=== PATIENT | female | born 1945 | race Caucasian/White ===

== ENCOUNTER 2018-01-24 20:47 | Emergency (ER) | payer OTHER ==
--- OUTSIDE RECORDS SUMMARY | 2018-01-24 20:49 | XMS REPORT | Clinical Summary ---
:1945 Author Organization [facility] Address [address] [place] [address] Phone Care Team Providers Name Role Phone Unavailable Primary Care Provider Unavailable Allergies Active Allergy Reactions Severity Noted Date Comments Iodine And Iodide Containing Anaphylaxis High 06/24/2016 Products Meperidine Hives 06/24/2016 Erythromycin Other (See Comments) 06/24/2016 Abdominal pain Levofloxacin Itching 06/24/2016 Penicillins Itching 06/24/2016 Salicylates Rash Low 06/24/2016 Secobarbital Sodium Anxiety Low 06/24/2016 Insomnia Current Medications Prescription Sig. Disp. Refills Start Date End Date Status acetaminophen 500 mg Take 2 tablets by Active coapsuleIndications: mouth as needed for Arthritic Pain Pain. Active Problems Not on file Social History Tobacco Use Types Packs/Day Years Used Date Never Smoker Smokeless Tobacco: Never Used Alcohol Use Drinks/Week oz/Week Comments No Sex Assigned at Date Recorded Not on file Last Filed Vital Signs Not on file Plan of Treatment Not on file Results Not on fileafter 01/23/2017
[2018-01-24 22:12] LABS: Absolute Lymphocytes (CBC) 1.4 K/uL (0.7-4.9); Absolute Monocytes 0.4 K/uL (0.1-1.3); Eosinophils % 1.8 % (0-4.4); Lymphocytes % 27.9 % (15.3-44.8); MCH 30.8 pg (27.0-35.0); MCV 94.5 fL (80-100); MPV 7.9 fL (7.6-11.3); Monocytes % 7.3 % (3.3-12.3); RBC Red Blood Cell Count 4.13 M/uL (3.86-4.86)
[2018-01-24 22:29] LABS: Albumin 4.2 g/dL (3.4-5.0); Bilirubin Direct 0.2 mg/dL (0-0.2); Bilirubin Total 0.6 mg/dL (0.2-1.0); Potassium 3.3 mmol/L (3.5-5.1); Protein, Total 7.3 g/dL (6.4-8.2)
[2018-01-24] MEDS ORDERED: METHYLPREDNISOLONE 125 MG INJ ONE (23:35)
[2018-01-24] MEDS ORDERED: DIPHENHYDRAMINE 50 MG/ML VIAL ONE (23:35)
[2018-01-24 23:44] LABS: Urine Blood NEGATIVE (NEG); Urine Glucose NEGATIVE (NEG); Urine Protein 1+ (NEG); Urine Specific Gravity >1.030 (1.005-1.030); Urine pH 5.5 (5.0-7.0)
--- NOTE | 2018-01-25 01:43 | EDPHYS ---
Physician Documentation [facility] Name: Jennifer Woody Age: 72 yrs Sex: Female : 1945 Arrival Date: 01/24/2018 Time: 20:50 Bed 13 Private MD: Richard Stinson T ED Physician Hilario Muir HPI: 01/24 21:57 This 72 yrs old Female presents to ER via Ambulatory with complaints of jr8 Abdominal Pain. 21:57 The patient presents with abdominal pain right lower quadrant. Onset: The jr8 symptoms/episode began/occurred acutely, today. The symptoms do not radiate. Associated signs and symptoms: none. The symptoms are described as constant, sharp. Modifying factors: The symptoms are alleviated by nothing, the symptoms are aggravated by nothing. Severity of pain: At its worst the pain was moderate in the emergency department the pain is unchanged. The patient has not experienced similar symptoms in the past. The patient has not recently seen a physician. Historical: - Allergies: 20:55 Aspirin; aj 20:55 Demerol; aj 20:55 Erythromycin; aj 20:55 Iodine; aj 20:55 Keflex; aj 20:55 Levaquin; aj 20:55 PENICILLINS; aj - Home Meds: 20:55 tylenol [Active]; aj - PMHx: 20:55 HYPOGLYCEMIA; aj - PSHx: 20:55 Knee surgery; HAND SURG; ; eye surgery; aj - Immunization history:: Adult Immunizations up to date. - Social history:: Smoking status: Patient/guardian denies using tobacco. - Ebola Screening: : Patient negative for fever greater than or equal to 101.5 degrees Fahrenheit, and additional compatible Ebola Virus Disease symptoms Patient denies exposure to infectious person Patient denies travel to an Ebola-affected area in the 21 days before illness onset No symptoms or risks identified at this time. ROS: 21:57 Eyes: Negative for injury, pain, redness, and discharge, ENT: Negative for injury, jr8 pain, and discharge, Neck: Negative for injury, pain, and swelling, Cardiovascular: Negative for chest pain, palpitations, and edema, Respiratory: Negative for shortness of breath, cough, wheezing, and pleuritic chest pain, Back: Negative for injury and pain, MS/Extremity: Negative for injury and deformity, Skin: Negative for injury, rash, and discoloration, Neuro: Negative for headache, weakness, numbness, tingling, and seizure. 21:57 Abdomen/GI: Positive for abdominal pain, Negative for nausea, vomiting, and diarrhea, abdominal distension, anorexia, dysphagia, hematemesis, black/tarry stool, rectal pain, rectal bleeding, bowel incontinence, flatulence. Exam: 21:57 Eyes: Pupils equal round and reactive to light, extra-ocular motions intact. Lids and jr8 lashes normal. Conjunctiva and sclera are non-icteric and not injected. Cornea within normal limits. Periorbital areas with no swelling, redness, or edema. ENT: Nares patent. No nasal discharge, no septal abnormalities noted. Tympanic membranes are normal and external auditory canals are clear. Oropharynx with no redness, swelling, or masses, exudates, or evidence of obstruction, uvula midline. Mucous membranes moist. Neck: Trachea midline, no thyromegaly or masses palpated, and no cervical lymphadenopathy. Supple, full range of motion without nuchal rigidity, or vertebral point tenderness. No Meningismus. Cardiovascular: Regular rate and rhythm with a normal S1 and S2. No gallops, murmurs, or rubs. Normal PMI, no JVD. No pulse deficits. Respiratory: Lungs have equal breath sounds bilaterally, clear to auscultation and percussion. No rales, rhonchi or wheezes noted. No increased work of breathing, no retractions or nasal flaring. Back: No spinal tenderness. No costovertebral tenderness. Full range of motion. Skin: Warm, dry with normal turgor. Normal color with no rashes, no lesions, and no evidence of cellulitis. MS/ Extremity: Pulses equal, no cyanosis. Neurovascular intact. Full, normal range of motion. Neuro: Awake and alert, GCS 15, oriented to person, place, time, and situation. Cranial nerves II-XII grossly intact. Motor strength 5/5 in all extremities. Sensory grossly intact. Cerebellar exam normal. Normal gait. 21:57 Abdomen/GI: Inspection: abdomen appears normal, Bowel sounds: active, all quadrants, Palpation: soft, in all quadrants, mild abdominal tenderness, in the right lower quadrant, mass, is not appreciated, rebound tenderness, is not appreciated, voluntary guarding, is not appreciated, involuntary guarding, is not appreciated, no appreciated organomegaly, Indicators: McBurney's point is not tender, Martin's sign is negative, Rovsing's sign is negative, Liver: no appreciated palpable abnormalities, tenderness, is not appreciated. Vital Signs: 20:55 BP 127 / 89; Pulse 106; Resp 19; Temp 99.2; Pulse Ox 97% on R/A; Weight 55.79 kg; aj Height 5 ft. 6 in. (167.64 cm); Pain 6/10; 21:50 BP 99 / 60; Pulse 67; Resp 18; Pulse Ox 99% on R/A; ea 22:15 BP 102 / 61; Pulse 66; Resp 18; Pulse Ox 98% on R/A; ea 01/25 00:15 BP 100 / 70; Pulse 70; Resp 18; Pulse Ox 99% ; ea 01:30 BP 100 / 68; Pulse 67; Resp 18; Pulse Ox 98% on R/A; ea 01:30 BP 100 / 67; Pulse 70; Resp 18; Temp 97.8(O); Pulse Ox 98% on R/A; Pain 2/10; ea 01/24 20:55 Body Mass Index 19.85 (55.79 kg, 167.64 cm) aj MDM: 01/24 21:10 Patient medically screened. 8 01/25 01:41 Data reviewed: vital signs, nurses notes, lab test result(s), radiologic studies, CT jr8 scan, and as a result, I will discharge patient. Data interpreted: Pulse oximetry: on room air is 99 %. Interpretation: normal. Counseling: I had a detailed discussion with the patient and/or guardian regarding: the historical points, exam findings, and any diagnostic results supporting the discharge/admit diagnosis, lab results, radiology results, the need for outpatient follow up, an OB/Gyne specialist, to return to the emergency department if symptoms worsen or persist or if there are any questions or concerns that arise at home. 01/24 21:11 Order name: Basic Metabolic Panel; Complete Time: 22:39 8 01/24 21:11 Order name: CBC with Diff; Complete Time: 22:20 jr8 01/24 21:11 Order name: Creatinine for Radiology; Complete Time: 22:39 8 01/24 21:11 Order name: Hepatic Function; Complete Time: 22:39 8 01/24 21:11 Order name: Lipase; Complete Time: 22:39 [facility] 01/24 22:18 Order name: Urine Dipstick--Ancillary (enter results); Complete Time: 23:45 rg2 01/24 21:11 Order name: IV Saline Lock; Complete Time: 22:07 [facility] 01/24 21:11 Order name: Labs collected and sent; Complete Time: 22:07 [facility] 01/24 21:11 Order name: Urine Dipstick-Ancillary (obtain specimen); Complete Time: 22:14 [facility] 01/24 21:38 Order name: CT Abd/Pelvis - W/Contrast 8 Administered Medications: 01/24 23:41 Drug: Benadryl 12.5 mg Route: IVP; Site: right antecubital; 01/25 00:15 Follow up: Response: No adverse reaction 01/24 23:41 Drug: SOLU-Medrol 125 mg Route: IVP; Site: right antecubital; 01/25 00:15 Follow up: Response: No adverse reaction Disposition: 19:09 Co-signature as Attending Physician, Hilario Muir MD. Disposition: 01/25/18 01:42 Discharged to Home. Impression: Pelvic mass, Abdominal and pelvic pain. - Condition is Stable. - Discharge Instructions: Abdominal Pain, Adult. - Prescriptions for Tylenol- Codeine #3 300-30 mg Oral Tablet - take 2 tablet by ORAL route every 6 hours As needed; 30 tablet. - Medication Reconciliation Form, Thank You Letter, Antibiotic Education, Prescription Opioid Use form. - Follow up: Private Physician; When: 2 - 3 days; Reason: Recheck today's complaints, Continuance of care, Re-evaluation by your physician. - Problem is new. - Symptoms have improved. Signatures: Dispatcher [employer] Renetta Christianson RN RN aj Roszak, Josh, PA PA jr8 Aziza Mukherjee RN RN ea Starr, Gregory, MD MD gs Corrections: (The following items were deleted from the chart) 02:10 01:42 01/25/2018 01:42 Discharged to Home. Impression: Pelvic mass; Abdominal and ea pelvic pain. Condition is Stable. Forms are Medication Reconciliation Form, Thank You Letter, Antibiotic Education, Prescription Opioid Use. Follow up: Private Physician; When: 2 - 3 days; Reason: Recheck today's complaints, Continuance of care, Re-evaluation by your physician. Problem is new. Symptoms have improved. jr8
--- NOTE | 2018-01-25 01:43 | ER ---
Nurse's Notes [facility] Name: Jennifer Woody Age: 72 yrs Sex: Female : 1945 Arrival Date: 01/24/2018 Time: 20:50 Bed 13 Private MD: Richard Stinson T Diagnosis: Pelvic mass;Abdominal and pelvic pain Presentation: 01/24 20:53 Presenting complaint: Patient states: RLQ pain that's started this AM. Denies stool aj changes. Transition of care: patient was not received from another setting of care. Onset of symptoms was January 24, 2018. Risk Assessment: Do you want to hurt yourself or someone else? Patient reports no desire to harm self or others. Initial Sepsis Screen: Does the patient meet any 2 criteria? No. Patient's initial sepsis screen is negative. Does the patient have a suspected source of infection? No. Patient's initial sepsis screen is negative. Care prior to arrival: None. 20:53 Method Of Arrival: Ambulatory aj 20:53 Acuity: BETZY 3 aj Triage Assessment: 20:55 General: Appears in no apparent distress. comfortable, Behavior is calm, cooperative, aj appropriate for age. Pain: Complains of pain in right lower quadrant. Neuro: Level of Consciousness is awake, alert, obeys commands, Oriented to person, place, time, situation, Appropriate for age. Respiratory: Airway is patent Respiratory effort is even, unlabored, Respiratory pattern is regular, symmetrical. GI: Abdomen is flat, Reports lower abdominal pain. Derm: Skin is intact, is healthy with good turgor, Skin is pink, warm \\T\\ dry. normal. Historical: - Allergies: 20:55 Aspirin; aj 20:55 Demerol; aj 20:55 Erythromycin; aj 20:55 Iodine; aj 20:55 Keflex; aj 20:55 Levaquin; aj 20:55 PENICILLINS; aj - Home Meds: 20:55 tylenol [Active]; aj - PMHx: 20:55 HYPOGLYCEMIA; aj - PSHx: 20:55 Knee surgery; HAND SURG; ; eye surgery; aj - Immunization history:: Adult Immunizations up to date. - Social history:: Smoking status: Patient/guardian denies using tobacco. - Ebola Screening: : Patient negative for fever greater than or equal to 101.5 degrees Fahrenheit, and additional compatible Ebola Virus Disease symptoms Patient denies exposure to infectious person Patient denies travel to an Ebola-affected area in the 21 days before illness onset No symptoms or risks identified at this time. Screenin:49 Abuse screen: Denies threats or abuse. Nutritional screening: No deficits noted. ea Tuberculosis screening: No symptoms or risk factors identified. Fall Risk None identified. Assessment: 21:50 General: Appears uncomfortable, Behavior is calm, cooperative. Pain: Complains of pain ea in right lower quadrant Pain does not radiate. Pain currently is 8 out of 10 on a pain scale. Quality of pain is described as aching. Neuro: Level of Consciousness is awake, alert, obeys commands, Oriented to person, place, time, situation. Cardiovascular: Heart tones S1 S2 present Patient's skin is warm and dry. Respiratory: Airway is patent Respiratory effort is even, unlabored, Respiratory pattern is regular, symmetrical. Respiratory: Breath sounds are clear bilaterally. GI: Bowel sounds present X 4 quads. Abdomen is tender to palpation in right lower quadrant. : No signs and/or symptoms were reported regarding the genitourinary system. Derm: Skin is pink, warm \\T\\ dry. 22:10 Reassessment: Patient and/or family updated on plan of care and expected duration. Pain ea level reassessed. Patient is alert, oriented x 3, equal unlabored respirations, skin warm/dry/pink. Pt reports refused to drink contrast states " my stomach is not able to tolerate it, I start cramping and get really bad diarrhea" Provider notified. 22:15 Reassessment: Patient and/or family updated on plan of care and expected duration. Pain ea level reassessed. Patient is alert, oriented x 3, equal unlabored respirations, skin warm/dry/pink. 23:50 Reassessment: Patient and/or family updated on plan of care and expected duration. Pain ea level reassessed. Patient is alert, oriented x 3, equal unlabored respirations, skin warm/dry/pink. 01/25 00:50 Reassessment: Patient and/or family updated on plan of care and expected duration. Pain ea level reassessed. Patient is alert, oriented x 3, equal unlabored respirations, skin warm/dry/pink. 01:12 Reassessment: Patient and/or family updated on plan of care and expected duration. Pain ea level reassessed. Patient is alert, oriented x 3, equal unlabored respirations, skin warm/dry/pink. 02:02 Reassessment: Patient and/or family updated on plan of care and expected duration. Pain ea level reassessed. Patient is alert, oriented x 3, equal unlabored respirations, skin warm/dry/pink. discharge instruction given to patient, verbalized the understanding of instruction. Vital Signs: 01/24 20:55 BP 127 / 89; Pulse 106; Resp 19; Temp 99.2; Pulse Ox 97% on R/A; Weight 55.79 kg; aj Height 5 ft. 6 in. (167.64 cm); Pain 6/10; 21:50 BP 99 / 60; Pulse 67; Resp 18; Pulse Ox 99% on R/A; ea 22:15 BP 102 / 61; Pulse 66; Resp 18; Pulse Ox 98% on R/A; ea 01/25 00:15 BP 100 / 70; Pulse 70; Resp 18; Pulse Ox 99% ; ea 01:30 BP 100 / 68; Pulse 67; Resp 18; Pulse Ox 98% on R/A; ea 01:30 BP 100 / 67; Pulse 70; Resp 18; Temp 97.8(O); Pulse Ox 98% on R/A; Pain 2/10; ea 01/24 20:55 Body Mass Index 19.85 (55.79 kg, 167.64 cm) aj ED Course: 01/24 20:50 Patient arrived in ED. ds1 20:50 Richard Stinson MD is Private Physician. ds1 20:54 Triage completed. aj 20:55 Arm band placed on right wrist. Patient placed in an exam room. aj 21:02 Aziza Mukherjee, LAZARO is Primary Nurse. ea 21:03 Matti Nolasco PA is PHCP. jr8 21:03 Hilario Muir MD is Attending Physician. jr8 21:40 Patient has correct armband on for positive identification. Placed in gown. Bed in low ea position. Call light in reach. Side rails up X 1. 22:00 Inserted saline lock: 22 gauge in right antecubital area, using aseptic technique. ea Blood collected. 23:[address] via stretcher. kw1 23:43 Radiology exam delayed due to Patient needed to be pre-treated for iodine allergy prior kw1 to CT exam. 23:50 CT completed. Patient tolerated procedure well. Patient moved back from CT. kw1 23:52 CT Abd/Pelvis - W/Contrast In Process Unspecified. EDMS 01/25 02:03 No provider procedures requiring assistance completed. IV discontinued, intact, ea bleeding controlled, No redness/swelling at site. Pressure dressing applied. Administered Medications: 01/24 23:41 Drug: Benadryl 12.5 mg Route: IVP; Site: right antecubital; ea 01/25 00:15 Follow up: Response: No adverse reaction ea 01/24 23:41 Drug: SOLU-Medrol 125 mg Route: IVP; Site: right antecubital; ea 01/25 00:15 Follow up: Response: No adverse reaction ea Outcome: 01:42 Discharge ordered by MD. reyes 02:03 Discharged to home ambulatory, with family. ea 02:03 Condition: improved 02:03 Discharge instructions given to patient, Instructed on discharge instructions, follow up and referral plans. medication usage, Demonstrated understanding of instructions, follow-up care, medications, Prescriptions given X 1. 02:10 Patient left the ED. ea Signatures: Dispatcher [employer] EDRenetta Corcoran, RN Navya Ford ds1 Matti Nolasco PA PA jr8 Antunez, Elena, RN RN ea Wilhelm, Kimberly kw1
--- NOTE | 2018-01-25 08:41 | RAD REPORT ---
EXAM DESCRIPTION: CTAbdomen Pelvis W Contrast - 01/25/2018 4:43 am CLINICAL HISTORY: Abdominal pain. ABD PAIN COMPARISON: Abdomen Pelvis W Contrast dated 04/20/2016 TECHNIQUE: Biphasic CT imaging of the abdomen and pelvis was performed with 100 ml non-ionic IV cont rast. All CT scans are performed using dose optimization technique as appropriate and may include automated exposure control or mA/KV adjustment according to patient size. FINDINGS: The lung bases are clear. The liver contains several low-density lesions compatible with cysts, without significant change. The spleen, pancreas, adrenal glands are normal. Bilateral renal cysts are present, without significant change. Complicated cyst versus solid lesion again noted lateral inferior right kidney cortex measuri ng 12 x 10 mm, unchanged. Several punctate left renal calculi seen without significant change. No bowel obstruction, free air, free fluid or abscess. Right pelvic mass measuring 3.3 x 3.0 cm appea rs unchanged. Significant retained stool in the colon. The appendix is not identified as a discrete s tructure, however, no secondary findings of appendicitis are identified. No evidence of significant lymphadenopathy. Grade 1 anterolisthesis of L4 on 5 is seen. Prominent posterior disc bulge with calcification at L5-S 1. IMPRESSION: No significant change is seen since 04/20/2016 study. Prominent fecal retention. A preliminary written report was provided at the time of the study, and the report was reviewed prio r to final dictation.
== END 2018-01-25 02:10 | disposition home or self-care (01) ==
LOC: ER 20:47
DX: R19.00 Intra-abdominal and pelvic swelling, mass and lump, unspecified site (principal); R10.31 Right lower quadrant pain; Z88.6 Allergy status to analgesic agent; Z88.1 Allergy status to other antibiotic agents; Z88.3 Allergy status to other anti-infective agents; Z88.0 Allergy status to penicillin
CPT/HCPCS: 36415; 74177; 80048; 80076; 81003; 83690; 85025; 96374; 96375; 99284; J2930; Q9967

== ENCOUNTER 2021-10-30 15:16 | Emergency (ER) | payer OTHER ==
--- OUTSIDE RECORDS SUMMARY | 2021-10-30 15:22 | XMS REPORT | Continuity of Care Document ---
:1945 Author Organization [facility] t Address [address] [place] [address] Care Team Providers Name Role Phone [facility] Primary Care Physician Unavailable GEN ZAMUDIO Attending Clinician Unavailable NATALIE Attending Clinician Unavailable Melissa ZAMUDIO Attending Clinician Unavailable Clint LOAIZA Attending Clinician Unavailable Clint Loaiza MD Attending Clinician Melissa Zamudio MD Attending Clinician NATALIE Admitting Clinician Unavailable Payers Payer Name Policy Type Policy Number Effective Date Expiration Date S karyn MEDICARE A B [id number] 2011 00:00:00 [employer]ET[employer] INDEMNITY [id number] 2014 NON CONTR 00:00:00 MEDICARE PART A [id number] \\T\\ [id number] - MEDICARE INDEMNITY/TRADITIO [id number] 2015 NAL CHOICE - AETNA 00:00:00 Problems Condition Condition Condition Status Onset Resolution Last Treating Co mments Source Name Details Category Date Date Treatment Clinician Date 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[facility] of of 305 College uncertain uncertain 00:00: of behavior behavior 00 Medici n of skin of skin e Multiple Multiple Disease Active [facility] nevi nevi 3-05 College 00:00: of 00 Medicin e Keratosis Keratosis Disease Active [facility] seborrheic seborrheic -05 Co llege a a 00:00: of 00 Medicin e Lentigines Lentigines Disease Active [facility] 3-05 [facility] 00:00: of 00 Medicin e Milium Milium Disease Active [facility] 3-05 College 00:00: of 00 Medicin e EIC EIC Disease Active [facility] (epidermal (epidermal 05 Co llege inclusion inclusion 00:00: of cyst) cyst) 00 Medicin e 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 305 Colleg e of skin of of skin of 00:00: of right arm right arm 00 Medi philippe e Abdominal Abdominal Disease Active 2015-07 [facility] gas pain gas pain 2-05 Colleg e 00:00: of 00 Medicin e Trigger Trigger Disease Active [facility] index index 5-16 College finger finger 00:00: of 00 Medicin e Bilateral Bilateral Disease Active [facility] hand pain hand pain 5-12 [facility]ime [facility]ge 00:00: of 00 Medicin e Allergies, Adverse Reactions, Alerts Allergy Allergy Status Severity Reaction(s) Onset Inactive Treating Comm ents Source Name Type Date Date Clinician Sulfamet Propensi Active Rash 2019-07 [facility] hazine ty to 0-20 College adverse 00:00: of reaction 00 Medicin s to e drug SULFAMET Allergy Active Low Itching 2019-[address] [facility]20 [facility] 00 Big Pool Pseudoep Propensi Active [facility] hedrine ty to 5-01 College adverse 00:00: of reaction 00 Medicin s to e drug PSEUDOEP Allergy Active Other [facility] 5-01 [facility] IODINE Allergy Active High Anaphylaxis 2015-[address] [facility] AND 2-20 [facility] - IODIDE 00:00: Medical CONTAINI 00 Center NG PRODUCTS MEPERIDI Allergy Active Hives 2015-[address] [facility] NE 2-20 [facility] ERYTHROM Allergy Active Other 2015-[address] [facility] YCIN 2-20 [facility] LEVOFLOX Allergy Active Itching 2015-[address] [facility] ACIN 2-20 [facility] Center PENICILL Allergy Active Itching 2015-[address] [facility] INS 2-20 [facility] SALICYLA Allergy Active Low Rash 2015-[address] [facility] PHYLLIS 2-20 [facility] Center SECOBARB Allergy Active Low Anxiety 2015-[address] [facility] ITAL 2-20 [facility] SODIUM 00:[facility] Medical 00 Center Maltose Propensi Active 2015-07 [facility] ty to 08-10 [place] adverse 00:00: of reaction 00 Medicin s to e drug Penicill Propensi Active 2015-07 [facility] ins ty to 08-10 [place] adverse 00:00: of reaction 00 Medicin s to e drug Seconal Propensi Active 2015-07 [facility] ty to 08-10 [place] adverse 00:00: of reaction 00 Medicin s to e drug Cephalex Propensi Active 2015-07 [facility] in ty to 08-10 [place] adverse 00:00: of reaction 00 Medicin s to e drug Codeine Propensi Active 2015-07 [facility] ty to 08-10 [place] adverse 00:00: of reaction 00 Medicin s to e drug Demerol Propensi Active 2015-07 [facility] ty to 08-10 [place] adverse 00:00: of reaction 00 Medicin s to e drug MALTOSE Allergy Active 2015-[address] [facility] 08-10 [facility] Erythrom Propensi Active 2015-07 [facility] ycin ty to 08-10 [place] adverse 00:00: of reaction 00 Medicin s to e drug CEPHALEX Allergy Active Low Rash 2015-[address] [facility] IN 08-02 [facility] CODEINE Allergy Active N\\T\\V 2015-[address] [facility] 08-02 [facility] Iodine Propensi Active 2015-07 [facility] ty to 08-02 [place] adverse 00:00: of reaction 00 Medicin s to e drug Aspirin Propensi Active [facility] ty to 11-14 [place] adverse 00:00: of reaction Medicin s to e drug Levaquin Propensi Active [facility] ty to 11-14 [place] adverse 00:00: of reaction 00 Medicin s to e drug Social History Social Habit Start Date Stop Date Quantity Comments Source Exposure to Not sure [facility] kj of SARS-CoV-2 (event) Medici ne Tobacco use and 2020-06-14 2020-06-14 Never used [facility] llege of exposure 00:00:00 00:00:00 Medicine Sex [birth year] [facility] llege of 00:00:00 00:00:00 Medicine Smoking Status Start Date Stop Date Source Never smoker [facility] o f Medicine Medications Ordered Filled Start Stop Current Ordering Indication Dosage Frequency Signature Comments Components Source Medication Medication Date Date Medication? Clinician (SIG) Name Name Acetaminoph 2019-07 Yes Take by Jake barrientos en (TYLENOL 0-20 mouth. Colleg e 8 HOUR OR) 14:59: of 50 Medicin e Acetaminoph 2019-07 Yes Take by Jake ylor en (TYLENOL 0-20 mouth. Colleg e 8 HOUR OR) 14:59: of 50 Medicin e polyethylen 2019-07 Yes 17g Take 17 g [facility] glycol 0-20 by mouth College (MIRALAX) 00:00: daily. of 17 GM/SCOOP 00 Please Medici n powder start e taking half dose daily for 2 weeks and slowly increase to 17g daily if no improvemen t with bowel movement polyethylen 2019-07 Yes 17g Take 17 g [facility] glycol 0-20 by mouth College (MIRALAX) 00:00: daily. of 17 GM/SCOOP 00 Please Medici n powder start e taking half dose daily for 2 weeks and slowly increase to 17g daily if no improvemen t with bowel movement polyethylen 2015-07 2020- No 17g Take 17 g Nolberto e glycol 2-05 10-20 by mouth Colleg e (MIRALAX) 00:00: 00:00 daily. of powder 00 :00 Medicin e Vital Signs Vital Name Observation Time Observation Value Comments Source WEIGHT 2021-10-22 12:32:00 52.3 kg HEIGHT 2021-10-22 12:32:00 165.1 cm HEIGHT 2021-10-21 11:46:00 167.6 cm WEIGHT 2021-10-21 11:46:00 53.071 kg WEIGHT 2021-10-22 12:32:00 52.3 kg HEIGHT 2021-10-22 12:32:00 165.1 cm HEIGHT 2021-10-21 11:46:00 167.6 cm WEIGHT 2021-10-21 11:46:00 53.071 kg Heart rate 2020-04-24 14:56:00 98 /min [facility] Respiratory rate 2020-04-24 14:56:00 16 /min [facility] Body height 2020-04-24 14:56:00 167.6 cm [facility] Body weight 2020-04-24 14:56:00 52.617 kg [facility] BMI 2020-04-24 14:56:00 18.72 kg/m2 [facility] Procedures This patient has no known procedures. Plan of Care Planned Activity Planned Date Details Comments Source Future Scheduled CBC W/O DIFF W PLT Ordered: [facility] r College Test [code = 6690-2] 04/24/2020 of Medicine Future Scheduled COMPREHENSIVE Ordered: [facility] Col lege Test METABOLIC PANEL [code 04/24/2020 of Med icine = 89107-1] Future Scheduled TSH [code = 75189-3] Ordered: [employer] [employer] Test 04/24/2020 of Medicine Future Scheduled TETANUS SHOT (ADULT) [facility] [employer] Test [code = TETANUS SHOT of Medi cine (ADULT)] Future Scheduled HEPATITIS C SCREENING [employer] Test [code = HEPATITIS C of Medic ine SCREENING] Future Scheduled ZOSTER VACCINE (1 of [employer] [employer] Test 2) [code = ZOSTER of Medicin e VACCINE (1 of 2)] Future Scheduled FALL SCREEN [code = [employer] Test FALL SCREEN] of Medicine Future Scheduled PNEUMOVAX >=65 [facility] Co llege Test (PPSV23) [code = of Medicine PNEUMOVAX >=65 (PPSV23)] Future Scheduled MEDICARE AWV (Initial) [employer] Test [code = MEDICARE AWV of Medi cine (Initial)] Future Scheduled MAMMOGRAM ANNUAL [code [employer] Test = MAMMOGRAM ANNUAL] of Medic ine Future Scheduled FLU VACCINE > 6 MONTHS [employer] Test [code = FLU VACCINE > of Med icine 6 MONTHS] Future Scheduled COLON CANCER [facility]ime [facility] Test SCREENING: COLONOSCOPY of Me dicine [code = COLON CANCER SCREENING: COLONOSCOPY] Future Scheduled TETANUS SHOT (ADULT) [facility] [employer] Test [code = TETANUS SHOT of Medi cine (ADULT)] Future Scheduled HEPATITIS C SCREENING [employer] Test [code = HEPATITIS C of Medic ine SCREENING] Future Scheduled ZOSTER VACCINE (1 of [facility] [employer] Test 2) [code = ZOSTER of Medicin e VACCINE (1 of 2)] Future Scheduled FALL SCREEN [code = [employer] Test FALL SCREEN] of Medicine Future Scheduled PNEUMOVAX >=65 [facility] Co llege Test (PPSV23) [code = of Medicine PNEUMOVAX >=65 (PPSV23)] Future Scheduled MEDICARE AWV (Initial) [employer] Test [code = MEDICARE AWV of Medi cine (Initial)] Future Scheduled MAMMOGRAM ANNUAL [code [employer] Test = MAMMOGRAM ANNUAL] of Medic ine Future Scheduled FLU VACCINE > 6 MONTHS [employer] Test [code = FLU VACCINE > of Med icine 6 MONTHS] Future Scheduled COLON CANCER [facility] Test SCREENING: COLONOSCOPY of Me madrid [code = COLON CANCER SCREENING: COLONOSCOPY] Encounters Start End Encounter Admission Attending Care Care Encounter Source Date/Time Date/Time Type Type Clinicians Facility Department ID 2021-11-04 2021-11-04 Outpatient [facility]O [facility] [id number] SLE 00:00:00 00:00:00 2021-10-22 2021-10-24 Outpatient VASU YOON [facility] Surgery [id number] SLE 11:51:00 15:25:00 GEORGI 2021-10-21 2021-10-21 Outpatient VASU [facility] [id number] SLE 12:06:16 23:59:00 2021-08-06 2021-08-06 Outpatient [facility] [id number] SLE 00:00:00 00:00:00 2021-05-14 2021-05-14 Outpatient LAMBERTO ZAMUDIO [facility] [id number] [facility] 10:25:49 16:14:12 Collepatricia e of Medicin e 2021-02-06 2021-02-06 Outpatient QUAN LOAIZA [facility] [id number] [facility] 10:40:55 11:42:41 AEGLE Murrell e of Medicin e 2020-06-14 2020-06-14 Office QUAN Loaiza [id number] [facility] 14:33:33 15:54:55 Visit [facility] [id number] College Y [id number] of [id number] Medi philippe 300 e 2020-04-24 2020-04-24 Office Labmerto Zamudio [id number] [facility] 09:29:50 09:49:50 Visit K AMBULATOR [id number] College Y [id number] [facility] philippe 325 e Results Test Description Test Time Test Comments Results Result Sour e Comments TISSUE EXAM 2021-10-30 Surgical Pathology Report 14:06:09 Case: [id number] Authorizing Provider: Georgi Yoon MD Collected: 10/22/2021 03:46 PM Ordering Location: [facility] Received: 10/22/2021 03:49 PM SERVICES Pathologist: Flavia Smith MD Specimens: A) - Soft Tissue, Other, left adnexa B) - Uterus w/Cervix & Right Ovary C) - Omentum D) - Lymph Node, Pelvic, Left, Left pelvic lymph node E) - Lymph Node, Pelvic, Right, Right pelvic lymph node F) - Mesenteric, Mesenteric nodule A. OVARY, LEFT, OOPHORECTOMY: - ENDOMETRIOID CARCINOMA, FIGO GRADE 1, WITH SQUAMOUS DIFFERENTIATION (SEE COMMENT)B. 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 OMENTUM, OMENTECTOMY: - FIBROADIPOSE TISSUE, NEGATIVE FOR CARCINOMA D. LYMPH NODES, LEFT PELVIC, DISSECTION: - TWO LYMPH NODES, NEGATIVE FOR CARCINOMA (0/2)E. LYMPH NODES, RIGHT PELVIC, DISSECTION: - TWO LYMPH NODES, NEGATIVE FOR CARCINOMA (0/2)F. MESENTERIC NODULE, EXCISION: - METASTATIC WELL-DIFFERENTIATED NEUROENDOCRINE TUMOR, G1, (SEE COMMENT) - TUMOR SIZE: 1.3 CM IN GREATEST DIMENSION - ONE ADJACENT LYMPH NODE, NEGATIVE FOR CARCINOMA (0/1) Signing Pathologist Direct Phone Line: [phone] y signed by Flavia Smtih MD on 10/30/2021 at 2:06 PMPreliminary result electronically signed by Flavia Smith MD on 10/29/2021 at 3:31 PMA. The ovarian surface cannot be assessed due to the specimen disruption. Immunohistochemical stains for mismatch repair genes is as follows: MLH1 - Intact nuclear expressionMSH2 - Intact nuclear expressionMSH6 - Intact nuclear expressionPMS2 - Intact nuclear expressionBackground nonneoplastic tissue/internal control with intact nuclear expression IHC InterpretationNo loss of nuclear expression of MMR proteins: low probability of microsatellite instability-high (MSI-H).There are exceptions to the above IHC interpretations. These results should not be considered in isolation, and clinical correlation with genetic counseling is recommended to assess the need for germline testing.F. Microscopically, section from the mesenteric nodule shows a well-differentiated neuroendocrine tumor involving soft tissue. An adjacent lymph node is identified. The neoplastic cells are relatively uniform in size and form nests, trabecular, and insular patterns. The neoplastic cells have round nuclei, eosinophilic cytoplasm, and eesd-tfw-ehfkpv chromatin, characteristic of a neuroendocrine tumor. Mitotic figure is rare in the tumor (< 1/10 high-power field). No tumor necrosis is seen.The immunohistochemical stains show that the neoplastic cells are diffusely positive AE1/AE3 cytokeratin, synaptophysin, chromogranin, and CDX-2. Ki-67 immunostain shows a low proliferative index (< 3%). The overall morphology and immunoprofile is consistent with a grade 1 well-differentiated neuroendocrine tumor. The CDX-2 staining suggests a primary arising from the mid-gut epithelium. Clinical correlation is necessary to determine the primary site. OVARY or FALLOPIAN TUBE or PRIMARY PERITONEUMOVARY OR FALLOPIAN TUBE OR PRIMARY PERITONEUM - All [id number] Edition - Protocol posted: 1SPECIMEN Procedure: Total hysterectomy and bilateral salpingo-oophorectomy Procedure: Omentectomy Procedure: Mesentric nodule excision Hysterectomy Type: Laparoscopic Specimen Integrity: Left Ovary Integrity: Per OP note, the mass was morcellated within the bag without spillage. Uterus Integrity: Intact TUMOR Tumor Site: Left ovary Tumor Size: Greatest Dimension (Centimeters): 15.5 cm Histologic Type: Endometrioid carcinoma Histologic Grade: FIGO grade 1 Ovarian Surface Involvement: Cannot be determined: due to the specimen disruption Fallopian Tube Surface Involvement: Not identified Other Tissue / Organ Involvement: Not identified Peritoneal / Ascitic Fluid Involvement: Atypical: See cytology report: [id number] REGIONAL LYMPH NODES Regional Lymph Node Status: : All regional lymph nodes negative for tumor cells Number of Lymph Nodes Examined: 5 Cris Site(s) Examined: Right pelvic Cris Site(s) Examined: Left pelvic Cris Site(s) Examined: Mesenteric DISTANT METASTASISPATHOLOGIC STAGE CLASSIFICATION (pTNM, AJCC 8th Edition) Reporting of pT, pN, and (when applicable) pM categories is based on information available to the pathologist at the time the report is issued. As per the AJCC (Chapter 1, 8th Ed.) it is the managing physician's responsibility to establish the final pathologic stage based upon all pertinent information, including but potentially not limited to this pathology report. pT Category: pT1 pN Category: pN0 A. 39035; 89814; 44664; 60678 x7B. 03910R. 38702M. 90987N. 00386O. 41960; 40414; 49748; 87911 x3A. Soft Tissue, Other.A. Received fresh for intraoperative consultation labeled the patient's name, accession number and "soft tissue, other" is a 71g, 15.5 x 8 x 3.5 cm duron-pink to yellow aggregate of tissue with the largest fragment measuring 6 x 3.5 x 3 cm. The tissue is fleshy and soft with focal areas of hemorrhage. There appears to be a duron-white translucent cyst lining overlying most of the tissue. No excrescences are identified. A section is submitted for frozen analysis and telephone claims representative sections are submitted in cassettes A2-A15.Section code:A2-A5: Carpet Tile Layer sections of tissue with 1 section per cassetteA6-A15: Carpet Tile Layer section soft tissue with 2 sections per cassetteJAB. Uterus w/Cervix & Right Ovary.B. Received in formalin labeled with patient's name, accession number and "uterus with cervix and right ovary" is a 55g, 7.5 x 5.5 x 3.5 cm uterus with a right adnexa (right fallopian tube and right ovary) and a left fallopian tube.The uterine serosa is duron-pink with cautery around the anterior and posterior cervix. The attached cervix is 3 x 3 cm with a slitlike os. A 4 x 0.5 cm duron-white pedunculated mass is identified on the right side of the uterus below the right adnexa.The anterior and posterior serosa are inked in the specimen is bivalved to display a 4.3 x 2.5 cm endometrial cavity. The endometrium is duron-pink to red, lush and is 0.1 cm thick. The myometrium is 1.5 cm thick. The duron-white pedunculated mass is serially sectioned to display a well circumscribed duron whorled cut surface with minute focal areas of hemorrhage and calcifications.The right fallopian tube is fimbriated and measures 5.2 x 0.5 cm. A 1 x 0.5 cm duron cyst is identified near the proximal intact attachment. The cyst is ruptured 2 exude clear watery fluid. The fallopian tube is serially sectioned to display a pinpoint lumen. The right ovary is 1.6 x 0 x 0.5 cm with a duron-yellow surface. The ovary is bisected to display a duron-yellow coarse surface with punctate areas of hemorrhage. No definitive corpus luteum is identified. The right ovary submitted entirely.The left adnexa consists of a 4.3 x 0.5 cm nonfimbriated fallopian tube. The fallopian tube is serially sectioned to display a pinpoint lumen and no lesions. Carpet Tile Layer sections are submitted.Ink code:Blue-anterior uterus and cervixBlack-posterior uterus and cervixSection code: B1-B4: Full-thickness section of anterior uterus from fundus to cervixB5-B8: Full-thickness section of posterior uterus from fundus to cervixB9-B13: Carpet Tile Layer sections of duron whorled fyhdG34-lqeoj fallopian tube fimbria bisected en rfwjU32-domjxdccwcmdfj sections of right fallopian akdkB70-T75: right ovary znbgqmipR00-nshkfgszbsxpy e section of left fallopian tubeJAC. Omentum.C. Received in formalin labeled with patient's name, accession number and "omentum" is a 0.5 cm yellow strip of fatty tissue. Specimen is serially sectioned to display no masses or nodules. Carpet Tile Layer sections are submitted in cassettes C1-C4.D. Lymph Node, Pelvic, Left.D. Received in formalin labeled the patient's name, accession number and "lymph node, pelvic, left" is a 4 x 3.5 x 1 cm aggregate of fibro-fatty tissue. 2 possible lymph nodes are identified measuring 1.6 cm in greatest dimension. Specimen is submitted entirely in cassettes D1-D3.Section code:D1: 1 lymph node bisectedD2: 1 lymph node bisectedD3: Remainder of specimenE. Lymph Node, Pelvic, Right.E. Received in formalin labeled with patient's name, accession number and "lymph node, pelvic, right" are 2 yellow strips of fatty tissue measuring 4 x 1.5 x 1 and 3 x 1.3 x 0.4 cm. The specimen is serially sectioned to display 2 possible lymph nodes measuring 0.7 cm in greatest dimension. Specimen is submitted entirely in cassettes E1-E3.Section code:E1-E2: 1 possible whole lymph node in each cassetteE3-remainder of tissueF. Mesenteric.F. Received in formalin labeled with patient's name, accession number and "mesenteric" is a 1.3 x 1 x 0.5 cm duron, ovoid, firm piece of tissue. The external surface is smooth and shiny. Specimen is inked and bisected to display a duron-white soft homogenous cut surface. Specimen is submitted entirely in cassette F1.A. Soft Tissue, Other.FS A1: OVARY, LEFT, EXCISION:- FAVOR ENDOMETRIOID CARCINOMAResults reported to Dr. Yoon noted at 4:13 PMA. Sections of the left ovary show a well differentiated glandular proliferation with endometrioid morphology. Some of these areas have a prominent stromal component and resemble an endometrioid adenofibroma, while others recapitulate the glandular complexity of a FIGO grade 1 endometrioid carcinoma. Focally, the tumor shows areas of a trabecular and corded morphology with squamous morular metaplasia. The nuclear morphology is uniformly low grade. The immunohistochemical stains show that the neoplastic cells are positive for CK7 (patchy), PAX-8, ER, and NV. All of these findings support the above diagnosis. B-F. Performed.Block A11 has adequate tumor cellularity for ancillary studies.The interpretation of this case included the use of immunohistochemistry or special stains.Control Slides Examined: In-house known positive controls were evaluated along with the test tissue. These control slides run alongside of the patients sample show appropriate staining. Internal positive and negative controls when available are evaluated Immunohistochemistry technical testing was performed at [facility], Pathology Laboratory where it was developed and its performance characteristics were determined. It has not been cleared or approved by the U.S. Food and Drug Administration. The FDA has determined that such clearance or approval is not necessary. The test is used for clinical purposes. It should not be regarded as investigational or for research. This laboratory is certified under the Clinical Laboratory Improvement Amendments of 1988 (CLIA-88) as qualified to perform high complexity clinical laboratory testing. CYTOLOGY 2021-10-25 Medical Cytology Report 19:22:21 Case: [id number] Authorizing Provider: Georgi Yoon MD Collected: 10/22/2021 03:35 PM Ordering Location: [facility] Received: 10/22/2021 03:46 PM SERVICES Pathologist: Mikel Mark MD Specimen: Pelvic PELVIC WASHING (CYTOSPINS AND CELL BLOCK): - FEW ATYPICAL CELLS SEEN - SEE COMMENT Signing Pathologist Direct Phone Line: [phone] y signed by Mikel Mark MD on 10/25/2021 at 7:22 PMThe differential includes endometrial cells from endometriosis, endosalpingiosis, and less likely malignant cells from patient's ovarian endometrioid adenocarcinoma.The cell block will be reviewed later with the concurrent case [id number] and an addendum will follow.[id number], 51049, 25062. 25142Ydloxz post laparoscopy, history of adnexal cyst.PELVIC WASHINGA. Pelvic.Received 40 mls light yellow fluid; prepared 4 cytospins, cell block (A2) (collodion bag) placed in formalin at 11:06 am on 2Performed. SatisfactoryThe interpretation of this case included the use of immunohistochemistry or special stains.PAX8, ER- positive in some atypical cellsControl Slides Examined: In-house known positive controls were evaluated along with the test tissue. These control slides run alongside of the patients sample show appropriate staining. Internal positive and negative controls when available are evaluated Immunohistochemistry technical testing was performed at [facility], Pathology Laboratory where it was developed and its performance characteristics were determined. It has not been cleared or approved by the U.S. Food and Drug Administration. The FDA has determined that such clearance or approval is not necessary. The test is used for clinical purposes. It should not be regarded as investigational or for research. This laboratory is certified under the Clinical Laboratory Improvement Amendments of 1988 (CLIA-88) as qualified to perform high complexity clinical laboratory testing.[facility], Department of Pathology, [address] [place] [id number], [facility] of [facility], [address] [place] [address], [facility], [facility], [address] [place] [address] [place] [address], MAGNESIUM 2021-10-24 06:08:01 Test Item Value Reference Range Interpretation Comme nts MAGNESIUM (BEAKER) (test code = 627) 2.1 mg/dL 1.6-2.6 Tower Equipment Repairer ID - JADYN [id number] 06:08:01 Test Item Value Reference Range Interpretation Comments PHOSPHORUS (BEAKER) (test code = 2.0 mg/dL 2.3-4.7 L 604) Tower Equipment Repairer ID - JADYN LCOMPREHENSIVE METABOLIC [id number] 06:08:00 Test Item Value Reference Range Interpretation Comments TOTAL PROTEIN 5.1 gm/dL 6.0-8.3 L (BEAKER) (test code = 770) ALBUMIN (BEAKER) 3.1 g/dL 3.5-5.0 L (test code = 1145) ALKALINE PHOSPHATASE 31 U/L 40-150 L (BEAKER) (test code = 346) BILIRUBIN TOTAL 0.5 mg/dL 0.2-1.2 (BEAKER) (test code = 377) SODIUM (BEAKER) (test 142 meq/L 136-145 code = 381) POTASSIUM (BEAKER) 4.1 meq/L 3.5-5.1 (test code = 379) CHLORIDE (BEAKER) 108 meq/L 98-107 H (test code = 382) CO2 (BEAKER) (test 28 meq/L 22-29 code = 355) BLOOD UREA NITROGEN 12 mg/dL 7-21 (BEAKER) (test code = 354) CREATININE (BEAKER) 0.58 mg/dL 0.57-1.25 (test code = 358) GLUCOSE RANDOM 100 mg/dL 70-105 (BEAKER) (test code = 652) CALCIUM (BEAKER) 8.6 mg/dL 8.4-10.2 (test code = 697) AST (SGOT) (BEAKER) 21 U/L 5-34 (test code = 353) ALT (SGPT) (BEAKER) 21 U/L 6-55 (test code = 347) EGFR (BEAKER) (test 102 ESTIMATE D GFR IS code = 1092) mL/min/1.73 sq NOT ACCURA TE m CREATININE CLEARANCE IN PREDICTING GLOMERULAR FILTRATION RATE . ESTIMATED GFR I S NOT APPLICABLE FOR DIALYSIS PATIEN TS. Tower Equipment Repairer ID - PIAYA LCBC W/PLT COUNT & AUTO [id number] 05:39:19 Test Item Value Reference Range Interpretation Comments WHITE BLOOD CELL COUNT (BEAKER) 6.0 K/ L 3.5-10.5 (test code = 775) RED BLOOD CELL COUNT (BEAKER) 3.36 M/ L 3.93-5.22 L (test code = 761) HEMOGLOBIN (BEAKER) (test code = 10.4 GM/DL 11.2-15.7 L 410) HEMATOCRIT (BEAKER) (test code = 32.7 % 34.1-44.9 L 411) MEAN CORPUSCULAR VOLUME (BEAKER) 97.3 fL 79.4-94.8 H (test code = 753) MEAN CORPUSCULAR HEMOGLOBIN 31.0 pg 25.6-32.2 (BEAKER) (test code = 751) MEAN CORPUSCULAR HEMOGLOBIN CONC 31.8 GM/DL 32.2-35.5 L (BEAKER) (test code = 752) RED CELL DISTRIBUTION WIDTH 13.9 % 11.7-14.4 (BEAKER) (test code = 412) PLATELET COUNT (BEAKER) (test 206 K/CU MM 150-450 code = 756) MEAN PLATELET VOLUME (BEAKER) 9.3 fL 9.4-12.3 L (test code = 754) NUCLEATED RED BLOOD CELLS 0 /100 WBC 0-0 (BEAKER) (test code = 413) NEUTROPHILS RELATIVE PERCENT 82 % (BEAKER) (test code = 429) LYMPHOCYTES RELATIVE PERCENT 12 % (BEAKER) (test code = 430) MONOCYTES RELATIVE PERCENT 4 % (BEAKER) (test code = 431) EOSINOPHILS RELATIVE PERCENT 1 % (BEAKER) (test code = 432) BASOPHILS RELATIVE PERCENT 0 % (BEAKER) (test code = 437) NEUTROPHILS ABSOLUTE COUNT 4.91 K/ L 1.56-6.13 (BEAKER) (test code = 670) LYMPHOCYTES ABSOLUTE COUNT 0.73 K/ L 1.18-3.74 L (BEAKER) (test code = 414) MONOCYTES ABSOLUTE COUNT (BEAKER) 0.22 K/ L 0.24-0.36 L (test code = 415) EOSINOPHILS ABSOLUTE COUNT 0.08 K/ L 0.04-0.36 (BEAKER) (test code = 416) BASOPHILS ABSOLUTE COUNT (BEAKER) 0.02 K/ L 0.01-0.08 (test code = 417) IMMATURE GRANULOCYTES-RELATIVE 0 % 0-1 PERCENT (BEAKER) (test code = 2801) [id number] 05:43:49 Test Item Value Reference Range Interpretation Comments PHOSPHORUS (BEAKER) (test code = 3.3 mg/dL 2.3-4.7 604) Tower Equipment Repairer ID - PIAYACOMPREHENSIVE METABOLIC [id number] 05:43:48 Test Item Value Reference Range Interpretation Comments TOTAL PROTEIN 5.4 gm/dL 6.0-8.3 L (BEAKER) (test code = 770) ALBUMIN (BEAKER) 3.4 g/dL 3.5-5.0 L (test code = 1145) ALKALINE PHOSPHATASE 30 U/L 40-150 L (BEAKER) (test code = 346) BILIRUBIN TOTAL 0.5 mg/dL 0.2-1.2 (BEAKER) (test code = 377) SODIUM (BEAKER) (test 140 meq/L 136-145 code = 381) POTASSIUM (BEAKER) 4.1 meq/L 3.5-5.1 (test code = 379) CHLORIDE (BEAKER) 107 meq/L 98-107 (test code = 382) CO2 (BEAKER) (test 24 meq/L 22-29 code = 355) BLOOD UREA NITROGEN 12 mg/dL 7-21 (BEAKER) (test code = 354) CREATININE (BEAKER) 0.57 mg/dL 0.57-1.25 (test code = 358) GLUCOSE RANDOM 117 mg/dL 70-105 H (BEAKER) (test code = 652) CALCIUM (BEAKER) 8.4 mg/dL 8.4-10.2 (test code = 697) AST (SGOT) (BEAKER) 25 U/L 5-34 (test code = 353) ALT (SGPT) (BEAKER) 28 U/L 6-55 (test code = 347) EGFR (BEAKER) (test 104 ESTIMATE D GFR IS code = 1092) mL/min/1.73 sq NOT ACCURA TE m CREATININE CLEARANCE IN PREDICTING GLOMERULAR FILTRATION RATE . ESTIMATED GFR I S NOT APPLICABLE FOR DIALYSIS PATIEN TS. Tower Equipment Repairer ID - [id number] 05:43:48 Test Item Value Reference Range Interpretation Comments MAGNESIUM (BEAKER) (test code = 1.8 mg/dL 1.6-2.6 627) Tower Equipment Repairer ID - PIAYACBC W/PLT COUNT & AUTO [id number] 05:35:32 Test Item Value Reference Range Interpretation Comments WHITE BLOOD CELL COUNT (BEAKER) 10.5 K/ L 3.5-10.5 (test code = 775) RED BLOOD CELL COUNT (BEAKER) 3.34 M/ L 3.93-5.22 L (test code = 761) HEMOGLOBIN (BEAKER) (test code = 10.2 GM/DL 11.2-15.7 L 410) HEMATOCRIT (BEAKER) (test code = 31.9 % 34.1-44.9 L 411) MEAN CORPUSCULAR VOLUME (BEAKER) 95.5 fL 79.4-94.8 H (test code = 753) MEAN CORPUSCULAR HEMOGLOBIN 30.5 pg 25.6-32.2 (BEAKER) (test code = 751) MEAN CORPUSCULAR HEMOGLOBIN CONC 32.0 GM/DL 32.2-35.5 L (BEAKER) (test code = 752) RED CELL DISTRIBUTION WIDTH 13.6 % 11.7-14.4 (BEAKER) (test code = 412) PLATELET COUNT (BEAKER) (test 215 K/CU MM 150-450 code = 756) MEAN PLATELET VOLUME (BEAKER) 9.4 fL 9.4-12.3 (test code = 754) NUCLEATED RED BLOOD CELLS 0 /100 WBC 0-0 (BEAKER) (test code = 413) NEUTROPHILS RELATIVE PERCENT 91 % (BEAKER) (test code = 429) LYMPHOCYTES RELATIVE PERCENT 3 % (BEAKER) (test code = 430) MONOCYTES RELATIVE PERCENT 5 % (BEAKER) (test code = 431) EOSINOPHILS RELATIVE PERCENT 0 % (BEAKER) (test code = 432) BASOPHILS RELATIVE PERCENT 0 % (BEAKER) (test code = 437) NEUTROPHILS ABSOLUTE COUNT 9.54 K/ L 1.56-6.13 H (BEAKER) (test code = 670) LYMPHOCYTES ABSOLUTE COUNT 0.34 K/ L 1.18-3.74 L (BEAKER) (test code = 414) MONOCYTES ABSOLUTE COUNT (BEAKER) 0.52 K/ L 0.24-0.36 H (test code = 415) EOSINOPHILS ABSOLUTE COUNT 0.00 K/ L 0.04-0.36 L (BEAKER) (test code = 416) BASOPHILS ABSOLUTE COUNT (BEAKER) 0.01 K/ L 0.01-0.08 (test code = 417) IMMATURE GRANULOCYTES-RELATIVE 0 % 0-1 PERCENT (BEAKER) (test code = 2801) POCT-GLUCOSE [id number] 19:38:23 Test Item Value Reference Range Interpretation Comments POC-GLUCOSE METER 109 mg/dL 70-110 : TESTED A T [facility] ([facility]) (test code = [facility], 1538) [id number]: Tower Equipment Repairer/Techni evelyn ID = [id number] for Donovan Opal barron HIV-1 ANTIGEN WITH HIV-1/2 [id number] 13:28:20 Test Item Value Reference Range Interpretation Comments HIV-1 ANTIGEN WITH HIV 1\\T\\2 Nonreactive Nonreactive ANTIBODY (2) (AKER) (test code = 2586) Tower Equipment Repairer ID - BSPOCT-GLUCOSE [id number] 12:48:48 Test Item Value Reference Range Interpretation Comments POC-GLUCOSE METER 80 mg/dL 70-110 : TESTED A T [facility] ([facility]) (test code = [facility], 1538) [id number]: Tower Equipment Repairer/Techni evelyn ID = [id number] for Radha Jules
[2021-10-30 16:47] LABS: Absolute Lymphocytes (CBC) 0.6 K/uL (0.7-4.9); Hematocrit 34.7 % (36.0-45.0); Lymphocytes % 14.3 % (15.3-44.8); MPV 7.3 fL (7.6-11.3); RBC Red Blood Cell Count 3.67 M/uL (3.86-4.86)
[2021-10-30 16:55] LABS: ALT/SGPT 38 U/L (12-78); AST/SGOT 17 U/L (15-37); Albumin 3.2 g/dL (3.4-5.0); Alkaline Phosphatase 45 U/L (45-117); BUN Blood Urea Nitrogen 14 mg/dL (7-18); Bicarbonate 31 mmol/L (21-32); Bilirubin Total 0.3 mg/dL (0.2-1.0); Glucose Level 102 mg/dL (74-106); Lipase 279 U/L (73-393); Potassium 3.9 mmol/L (3.5-5.1); Protein, Total 6.4 g/dL (6.4-8.2); Sodium Level 141 mmol/L (136-145)
--- NOTE | 2021-10-30 17:53 | RAD REPORT ---
EXAM DESCRIPTION: CTAbdomen Pelvis Wo Contrast - 10/30/2021 5:28 pm CLINICAL HISTORY: abd pain COMPARISON: Abdomen Pelvis W Contrast dated 01/24/2018; Abdomen Pelvis W Contrast dated 6 TECHNIQUE: CT of the abdomen and pelvis was performed. All CT scans are performed using dose optimization technique as appropriate and may include automated exposure control or mA/KV adjustment according to patient size. FINDINGS: Lower chest: No acute abnormality. Liver: Too small to characterize but unchanged liver lesions which are statistically benign. Biliary: No biliary ductal dilatation. Stomach: No significant focal abnormality. Duodenum: No significant focal abnormality. Pancreas: No significant abnormality. Spleen: No significant abnormality. Adrenal: No suspicious lesions. Kidney/ureter: No hydronephrosis. No renal calculi. Left renal pelvis dilatation. Retroperitoneum: No retroperitoneal adenopathy. Vascular: No aneurysm. Bowel: No significant focal abnormality. Peritoneum: Small volume of free fluid and free air in the abdomen. Bladder: Grossly unremarkable. Reproductive: Interval hysterectomy. Bones: No acute fracture. Other: Extensive bilateral subcutaneous emphysema. This extends from the chest wall into the abdomen and extremities.. IMPRESSION: Postoperative changes from the recent laparoscopic hysterectomy. Expected postoperative changes including subcutaneous gas throughout the abdominal wall and a small volume of free fluid and pneumoperitoneum. No fluid collections identified. Discussed with Dr. Smith by Dr. Hall around 1744 on 10/30/21
[2021-10-30 21:58] LABS: Urine Blood Negative (Negative); Urine Glucose Negative (Negative); Urine Protein Negative (Negative); Urine Specific Gravity 1.015 (1.005-1.030); Urine pH 6.5 (5.0-7.0)
--- NOTE | 2021-10-30 22:27 | ER ---
Nurse's Notes [facility] Name: Jennifer Woody Age: 75 yrs Sex: Female : 1945 Arrival Date: 10/30/2021 Time: 15:19 Bed 2 Private MD: Richard Stinson T Diagnosis: UTI/ Urinary tract infection, site not specified Presentation: 10/30 15:35 Chief complaint: Patient states: Noticed abd swelling and not emptying bladder fully at ll1 1 PM today. No fever. No N/V/D. Coronavirus screen: Vaccine status: Patient reports receiving the 2nd dose of the covid vaccine. Client denies travel out of the [place] in the last 14 days. At this time, the client does not indicate any symptoms associated with coronavirus-19. Ebola Screen: Patient denies travel to an Ebola-affected area in the 21 days before illness onset. Initial Sepsis Screen: Does the patient meet any 2 criteria? No. Patient's initial sepsis screen is negative. Does the patient have a suspected source of infection? Yes: Acute abdominal pain. Risk Assessment: Do you want to hurt yourself or someone else? Patient reports no desire to harm self or others. Onset of symptoms was October 30, 2021. 15:35 Method Of Arrival: Ambulatory ll1 15:35 Acuity: BETZY 3 ll1 Triage Assessment: 15:43 General: Appears in no apparent distress. Behavior is calm, cooperative, appropriate ll1 for age. Pain: Complains of pain in abdomen Quality of pain is described as aching, crampy. GI: Reports lower abdominal pain, upper abdominal pain, cramping. : Reports urgency, not emptying bladder fully. Historical: - Allergies: 15:32 Aspirin; ll1 15:32 Demerol; ll1 15:32 Erythromycin; ll1 15:32 Iodine; ll1 15:32 Keflex; ll1 15:32 Levaquin; ll1 15:32 PENICILLINS; ll1 15:32 Tramadol HCl; ll1 15:32 maltitol; ll1 15:32 Pseudoephedrine; ll1 15:32 Codeine; ll1 15:32 Seconal Sodium; ll1 15:32 Sulfa (Sulfonamide Antibiotics); ll1 15:32 Cephalexin; ll1 - PMHx: 15:32 HYPOGLYCEMIA; ll1 - PSHx: 15:32 ovarian CA; hysterectomy; ll1 - Immunization history:: Client reports receiving the 2nd dose of the Covid vaccine. - Social history:: Smoking status: Patient denies any tobacco usage or history of. Screenin:17 Abuse screen: Denies threats or abuse. Nutritional screening: No deficits noted. vg1 Tuberculosis screening: No symptoms or risk factors identified. Fall Risk No fall in past 12 months (0 pts). No secondary diagnosis (0 pts). IV access (20 points). Ambulatory Aid- Gait- Normal/Bed Rest/Wheelchair (0 pts) Mental Status- Oriented to own ability (0 pts). Total Mo Fall Scale indicates No Risk (0-24 pts). Assessment: 16:00 General: Appears uncomfortable, Behavior is calm, cooperative. Pain: Complains of pain vg1 in pelvis Pain currently is 5 out of 10 on a pain scale. Pain began 3 hours ago. Neuro: Level of Consciousness is awake, alert, obeys commands, Oriented to person, place, time, situation. Cardiovascular: Patient's skin is warm and dry. Respiratory: Airway is patent Respiratory effort is even, unlabored. GI: Patient currently denies bloating, diarrhea, nausea, vomiting. : Reports inability to void, since 1300 today. EENT: No signs and/or symptoms were reported regarding the EENT system. Derm: Skin is intact, is healthy with good turgor. Musculoskeletal: Circulation, motion, and sensation intact. 19:33 Reassessment: Patient appears in no apparent distress at this time. as6 21:10 Reassessment: Patient appears in no apparent distress at this time. patient ambulated al4 to restroom. 22:00 Reassessment: Patient appears in no apparent distress at this time. Patient is alert, al4 oriented x 3, equal unlabored respirations, skin warm/dry/pink. Vital Signs: 15:35 BP 120 / 76; Pulse 86; Resp 16; Temp 98.6; Pulse Ox 100% ; Weight 52.16 kg; Height 5 ll1 ft. 5 in. (165.10 cm); Pain 5/10; 16:15 BP 125 / 73; Pulse 82; Resp 16; Pulse Ox 98% on R/A; vg1 17:11 BP 105 / 61; Pulse 70; Pulse Ox 98% ; ap3 18:28 BP 110 / 64 RA (auto/); Pulse 86; Pulse Ox 95% ; ap3 19:33 BP 97 / 59; Pulse 85 MON; Resp 18 S; Pulse Ox 99% on R/A; as6 22:00 BP 104 / 61; Pulse 68; al4 15:35 Body Mass Index 19.14 (52.16 kg, 165.10 cm) ll1 ED Course: 15:19 Patient arrived in ED. mr 15:19 Richard Stinson MD is Private Physician. mr 15:33 Colin Smith MD is Attending Physician. kdr 15:35 Arm band placed on Patient placed in an exam room, on a stretcher. ll1 15:37 Triage completed. ll1 15:45 Roxanne Bran, RN is Primary Nurse. vg1 16:00 Patient has correct armband on for positive identification. Bed in low position. Call vg1 light in reach. Side rails up X 1. Adult w/ patient. 16:05 Bladder scan completed. 0 mL. vg1 17:30 Abdomen In Process Unspecified. EDMS 20:23 Alireza Parekh PA is PHCP. cp 20:47 Attending Physician role handed off by Colin Smith MD [facility] 20:47 Alireza Pearson MD is Attending Physician. sarwat 23:12 No provider procedures requiring assistance completed. IV discontinued, intact, as6 bleeding controlled, No redness/swelling at site. Pressure dressing applied. Administered Medications: 23:11 Drug: Macrobid (nitrofurantoin) 100 mg Route: PO; as6 23:12 Follow up: Response: No adverse reaction as6 Outcome: 22:27 Discharge ordered by . cp 23:12 Discharged to home ambulatory. as6 23:12 Condition: stable 23:12 Condition: stable 23:12 Discharge instructions given to patient, Instructed on discharge instructions, follow up and referral plans. medication usage, Demonstrated understanding of instructions, follow-up care, medications, Prescriptions given X 2. 23:12 Patient left the ED. as6 Signatures: Dispatcher [employer] EDTN Alireza Pearson MD MD cha Rittger, Kevin, MD MD kdr Diamond Boogie mr Alireza Parekh PA PA cp Prokisch, Amanda, RN RN ap3 Roxanne Bran RN RN vg1 Roxann Martínez RN RN ll1 Shlomo Dan, RN RN as6 Link Lynn
--- NOTE | 2021-10-30 22:27 | EDPHYS ---
Physician Documentation [facility] Name: Jennifer Woody Age: 75 yrs Sex: Female : 1945 Arrival Date: 10/30/2021 Time: 15:19 Bed 2 Private MD: Richard Stinson T ED Physician Alireza Pearson HPI: 10/30 19:40 This 75 yrs old Female presents to ER via Ambulatory with complaints of Urinary Problem.kdr 19:40 The patient presents with pelvic pain, that is located in/on the groin and suprapubic kdr area. Onset: The symptoms/episode began/occurred gradually, 1 week(s) ago. Modifying factors: The symptoms are alleviated by nothing, the symptoms are aggravated by nothing. Associated signs and symptoms: Pertinent positives: Patient states that she has burning to her perineal area and suprapubic area. Severity of symptoms: At their worst the symptoms were very mild, in the emergency department the symptoms are unchanged. Patient had a laparoscopic hysterectomy several weeks ago. She seemed to be recovering without complication until last few days. She is concerned that she may be retaining urine and not emptying her bladder. Initial bladder scan indicated that there is no retained urine. Historical: - Allergies: 15:32 Aspirin; ll1 15:32 Demerol; ll1 15:32 Erythromycin; ll1 15:32 Iodine; ll1 15:32 Keflex; ll1 15:32 Levaquin; ll1 15:32 PENICILLINS; ll1 15:32 Tramadol HCl; ll1 15:32 maltitol; ll1 15:32 Pseudoephedrine; ll1 15:32 Codeine; ll1 15:32 Seconal Sodium; ll1 15:32 Sulfa (Sulfonamide Antibiotics); ll1 15:32 Cephalexin; ll1 - PMHx: 15:32 HYPOGLYCEMIA; ll1 - PSHx: 15:32 ovarian CA; hysterectomy; ll1 - Immunization history:: Client reports receiving the 2nd dose of the Covid vaccine. - Social history:: Smoking status: Patient denies any tobacco usage or history of. ROS: 19:40 Constitutional: Negative for fever, chills, and weight loss, Eyes: Negative for injury, kdr pain, redness, and discharge, Neck: Negative for injury, pain, and swelling, Cardiovascular: Negative for chest pain, palpitations, and edema, Respiratory: Negative for shortness of breath, cough, wheezing, and pleuritic chest pain, Back: Negative for injury and pain, : Negative for injury, bleeding, discharge, and swelling, MS/Extremity: Negative for injury and deformity, Skin: Negative for injury, rash, and discoloration, Neuro: Negative for headache, weakness, numbness, tingling, and seizure activity. Psych: Negative for depression, anxiety, suicide ideation, homicidal ideation, and hallucinations, Allergy/Immunology: Negative for hives, rash, and allergies, Endocrine: Negative for neck swelling, polydipsia, polyuria, polyphagia, and marked weight changes, Hematologic/Lymphatic: Negative for swollen nodes, abnormal bleeding, and unusual bruising. 19:40 Abdomen/GI: Positive for abdominal pain, Negative for nausea, vomiting, abdominal cramps, abdominal distension, rectal pain, rectal bleeding, bowel incontinence. Exam: 19:40 Constitutional: This is a well developed, well nourished patient who is awake, alert, kdr and in no acute distress. Head/Face: Normocephalic, atraumatic. Eyes: Pupils equal round and reactive to light, extra-ocular motions intact. Lids and lashes normal. Conjunctiva and sclera are non-icteric and not injected. Cornea within normal limits. Periorbital areas with no swelling, redness, or edema. Neck: Trachea midline, no thyromegaly or masses palpated, and no cervical lymphadenopathy. Supple, full range of motion without nuchal rigidity, or vertebral point tenderness. No Meningismus. Chest/axilla: Normal chest wall appearance and motion. Nontender with no deformity. No lesions are appreciated. Cardiovascular: Regular rate and rhythm with a normal S1 and S2. No gallops, murmurs, or rubs. Normal PMI, no JVD. No pulse deficits. Respiratory: Lungs have equal breath sounds bilaterally, clear to auscultation and percussion. No rales, rhonchi or wheezes noted. No increased work of breathing, no retractions or nasal flaring. Back: No spinal tenderness. No costovertebral tenderness. Full range of motion. Skin: Warm, dry with normal turgor. Normal color with no rashes, no lesions, and no evidence of cellulitis. MS/ Extremity: Pulses equal, no cyanosis. Neurovascular intact. Full, normal range of motion. Neuro: Awake and alert, GCS 15, oriented to person, place, time, and situation. Cranial nerves II-XII grossly intact. Motor strength 5/5 in all extremities. Sensory grossly intact. Cerebellar exam normal. Normal gait. Psych: Awake, alert, with orientation to person, place and time. Behavior, mood, and affect are within normal limits. 19:40 Abdomen/GI: Inspection: abdomen appears normal, Bowel sounds: active, Palpation: soft, nontender. Vital Signs: 15:35 BP 120 / 76; Pulse 86; Resp 16; Temp 98.6; Pulse Ox 100% ; Weight 52.16 kg; Height 5 ll1 ft. 5 in. (165.10 cm); Pain 5/10; 16:15 BP 125 / 73; Pulse 82; Resp 16; Pulse Ox 98% on R/A; vg1 17:11 BP 105 / 61; Pulse 70; Pulse Ox 98% ; ap3 18:28 BP 110 / 64 RA (auto/); Pulse 86; Pulse Ox 95% ; ap3 19:33 BP 97 / 59; Pulse 85 MON; Resp 18 S; Pulse Ox 99% on R/A; as6 22:00 BP 104 / 61; Pulse 68; al4 15:35 Body Mass Index 19.14 (52.16 kg, 165.10 cm) ll1 MDM: 19:40 Data reviewed: vital signs, nurses notes, lab test result(s), radiologic studies. kdr Counseling: I had a detailed discussion with the patient and/or guardian regarding: the historical points, exam findings, and any diagnostic results supporting the discharge/admit diagnosis, lab results, radiology results, the need for outpatient follow up. 20:48 Patient medically screened. sarwat 10/30 16:05 Order name: CBC with Diff; Complete Time: 19:44 kdr 10/30 16:05 Order name: CMP; Complete Time: 19:44 kdr 10/30 16:05 Order name: Lipase; Complete Time: 19:44 kdr 10/30 20:25 Order name: Urine Microscopic Only cp 10/30 21:58 Order name: Urine Dipstick-Ancillary; Complete Time: 22:24 EDMS 10/30 22:24 Interpretation: Normal except: UESTR 1+. cp 10/30 16:05 Order name: IV Saline Lock; Complete Time: 16:31 kdr 10/30 16:05 Order name: Labs collected and sent; Complete Time: 16:31 kdr 10/30 16:11 Order name: Bladder Scanner; Complete Time: 16:18 kdr 10/30 17:04 Order name: Abdomen ; Complete Time: 19:44 EDMS 10/30 19:54 Order name: Urine Dipstick-Ancillary (obtain specimen); Complete Time: 22:13 kdr Administered Medications: 23:11 Drug: Macrobid (nitrofurantoin) 100 mg Route: PO; as6 23:12 Follow up: Response: No adverse reaction as6 Disposition Summary: 10/30/21 22:27 Discharge Ordered Location: Home cp Problem: new cp Symptoms: have improved cp Condition: Stable cp Diagnosis - UTI/ Urinary tract infection, site not specified cp Followup: cp - With: Private Physician - When: 1 - 2 days - Reason: Recheck today's complaints Discharge Instructions: - Discharge Summary Sheet cp - Urinary Tract Infection, Adult cp Forms: - Medication Reconciliation Form cp - Thank You Letter cp - Antibiotic Education cp - Prescription Opioid Use cp Prescriptions: - Macrobid 100 mg Oral Capsule - take 1 capsule by ORAL route every 12 hours for 7 days; 14 capsule; Refills: 0, cp Product Selection Permitted - Pyridium 200 mg Oral Tablet - take 1 tablet by ORAL route every 8 hours for 2 days; 6 tablet; Refills: 0, cp Product Selection Permitted Signatures: Dispatcher [employer] EDAlireza Weller MD MD cha Rittger, Kevin, MD MD kdr Page, Corey, PA PA cp Lewis, Lynsay, RN RN ll1 Shlomo Dan RN RN as6
[2021-10-30] MEDS ORDERED: NITROFURAN MACRO 100 MG CAP PO ONE (22:41)
[2021-10-30 23:27] LABS: Urine Bacteria <20 /HPF (<20); Urine RBC <5 /HPF (NONE SEEN)
[2021-10-31 00:56] VITALS: TEMP 98.6
[2021-10-31 01:00] VITALS: O2SAT 99
[2021-10-31 01:01] VITALS: BP 104/61
== END 2021-10-30 23:12 | disposition home or self-care (01) ==
LOC: ER 15:16
DX: N39.0 Urinary tract infection, site not specified (principal); Z85.43 Personal history of malignant neoplasm of ovary; Z88.1 Allergy status to other antibiotic agents; Z88.2 Allergy status to sulfonamides; Z88.5 Allergy status to narcotic agent; Z88.6 Allergy status to analgesic agent; Z88.8 Allergy status to other drugs, medicaments and biological substances; Z91.048 Other nonmedicinal substance allergy status; Z90.710 Acquired absence of both cervix and uterus
CPT/HCPCS: 36415; 74176; 80053; 81003; 81015; 83690; 85025; 87086; 87088; 99283

== ENCOUNTER 2022-09-12 09:09 | Emergency (ER) | payer OTHER ==
--- OUTSIDE RECORDS SUMMARY | 2022-09-12 09:23 | XMS REPORT | Continuity of Care Document ---
:1945 Author Organization [facility] t Address [address] [place] [address] Care Team Providers Name Role Phone LEANNE GUTIERREZ Primary Care Physician Unavailable LAMBERTO ZAMUDIO Attending Clinician Unavailable ROSEMARY CHAMBERS Attending Clinician Unavailable Rosemary Chambers MD Attending Clinician [phone][facility] Room Attending Clinician Unavailable ROSEMARY CHAMBERS Attending Clinician Unavailable JESSIE ESTRADA Attending Clinician Unavailable Rosemary Chambers MD Attending Clinician Duglas Mariee MD Attending Clinician [phone] JOSE DAVID CRUZ Attending Clinician Unavailable Duglas Mariee MD Attending Clinician DUGLAS MARIEE Attending Clinician Unavailable Juanita DONIS, Hector Mcarthur Attending Clinician Sharyn Dang MD Attending Clinician DUGLAS MARIEE Attending Clinician Unavailable Lamberto Zamudio MD Attending Clinician 1.5, [facility] Attending Clinician Unavailable MARCOS CARDENAS Attending Clinician Unavailable MARCOS CARDENAS Attending Clinician Unavailable Marcos Cardenas MD Attending Clinician Yary Maya MD Attending Clinician LAMBERTO ZAMUDIO Attending Clinician Unavailable SHARYN DANG Attending Clinician Unavailable IsabelaRadha Eleanor Attending Clinician Jessie Estrada MD Attending Clinician [phone] JESSIE ESTRADA Attending Clinician Unavailable Aram DONIS, Anjana Kate Attending Clinician [phone] Tyrone Hannon CRNA Attending Clinician EAGLE LEMA Attending Clinician Unavailable Eagle Lema MD Attending Clinician Lamberto Zamudio MD Attending Clinician LAMBERTO ZAMUDIO Admitting Clinician Unavailable DUGLAS MARIEE Admitting Clinician Unavailable MARCOS CARDENAS Admitting Clinician Unavailable JESSIE ESTRADA Admitting Clinician Unavailable Payers Payer Name Policy Type Policy Number Effective Date Expiration Date S karyn MEDICARE A B [id number] 2011 00:00:00 [employer] INDEMNITY [id number] 2014 NON CONTR 00:00:00 MEDICARE PLAN PPO [id number] 2022 - [employer] 00:00:00 MEDICARE PART A [id number] \\T\\ B - MEDICARE Problems Condition Condition Condition Status Onset Resolution Last Treating Co mments Source Name Details Category Date Date Treatment Clinician Date 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 00:00: Medi lolita in situ) in situ) 00 Center of breast of breast Renal mass Renal mass Disease Active [facility] 00:00: of 00 Medicin e Endometria Endometria Disease Active [facility] l l 5-08 [facility] carcinoma carcinoma 00:00: of 00 Medicin e 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 5-08 Co l[facility] 00:00: of 00 Medicin e Ovarian Ovarian Disease Active [facility] cyst cyst 4[facility]19 [facility] 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Davida jacobson of 3-05 College uncertain uncertain 00:00: of behavior behavior 00 Medici n of skin of skin e Multiple Multiple Disease Active [facility] ne[facility] nevi 3-05 [place] 00:00: of 00 Medicin e Keratosis Keratosis Disease Active [facility] seborrheic seborrheic 3-05 [facility] llege a a 00:00: of 00 Medicin e Lentigines Lentigines Disease Active [facility] 3-05 [place] 00:00: of 00 Medicin e Milium Milium Disease Active [facility] 3-05 College 00:00: of 00 Medicin e EIC EIC Disease Active [facility] (epidermal (epidermal 305 Co llege inclusion inclusion 00:00: of cyst) cyst) 00 Medicin e 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 hand pain hand pain 5-12 [facility] 00:00: of 00 Medicin e Allergies, Adverse Reactions, Alerts Allergy Allergy Status Severity Reaction(s) Onset Inactive Treating Comm ents Source Name Type Date Date Clinician Lidocain Propensi Active [facility] ty to 03-13 [facility] adverse 00:00: Medical reaction 00 Center s Lidocain Propensi Active Other (See "PT [facility] ty to Comments) 9-08 [facility] adverse 00:00: lidocaine of reaction 00 makes her Medic in s to tense up" e drug LIDOCAIN Allergy Active [facility] E 9-08 [facility] Tramadol Propensi Active Swelling [facility] ty to 712 [facility] adverse 00:00: Medical reaction 00 Center s TRAMADOL Allergy Active High [facility]elling [facility] Tramadol Propensi Active Swelling [facility] ty to 5-04 [facility] adverse 00:00: of reaction 00 Medicin s to e drug Sulfamet Drug Active Itching, 2019-[address] [facility] hazine Allergy Rash 0-20 [facility] [place] Sulfamet Propensi Active Rash 2019-07 [facility] hazine ty to 0-20 College adverse 00:00: of reaction 00 Medicin s to e drug SULFAMET Allergy Active Low Itching 2019-[address] [facility] HAZINE 0-20 [facility] 00:[facility] 00 [place] Pseudoep Drug Active Other (See tense [facility] hedrine Intolera Comments) 5 [facility] nce 00:00: Medical 00 [place] Pseudoep Propensi Active [facility] hedrine ty to 5 College adverse 00:00: of reaction 00 Medicin s to e drug PSEUDOEP Allergy Active Med Other [facility] HEDRINE 5- [facility] Salicyla Drug Active Rash 2015-[address] [facility] phyllis Allergy 2-20 [facility] Meperidi Drug Active Hives 2015-[address] [facility] ne Allergy 2-20 [facility] Center Erythrom Drug Active Other (See 2015-[address] ycin Intolera Comments) 2-20 pain [facility] Center Iodine Drug Active Anaphylaxis, 2015-[address] [facility] And Allergy Rash 2-20 Tested [facility] Iodide 00:[facility]: allergic Medical Containi 00 on Center ng testing Products Levoflox Drug Active Itching, 2015-[address] [facility] acin Allergy Rash 2-20 [facility] Penicill Drug Active Itching 2015-[address] ins Allergy 2-20 [facility] 00:[facility] [place] Secobarb Drug Active Anxiety 2015-07 Insomnia [facility] Allergy 2[facility] Sodium 00:00: Medical 00 Center IODINE Allergy Active High Anaphylaxis 2015-07 [facility] AND 2-20 IODIDE 00:00: CONTAINI 00 NG PRODUCTS MEPERIDI Allergy Active High Hives 2015-07 [facility] NE 2-20 00:00: 00 ERYTHROM Allergy Active Med Other 2015-07 [facility] YCIN 2-20 00:00: 00 LEVOFLOX Allergy Active High Itching 2015-07 [facility] ACIN 2-20 00:00: 00 PENICILL Allergy Active Med Itching 2015-07 [facility] INS 2-20 00:00: 00 SALICYLA Allergy Active Low Rash 2015-07 [facility] PHYLLIS 2-20 00:00: 00 SECOBARB Allergy Active Low Anxiety 2015-07 [facility] ITAL 2-20 [facility]IUM 00:00: 00 MALTOSE Allergy Active Low Other 2015-[address] [facility] 08-10 [facility] Maltose Drug Active Other (See 2015-07 [facility] Comments) [facility]10 [facility] Maltose Propensi Active 2015-07 [facility] ty to 08-10 [place] adverse 00:00: of reaction 00 Medicin s to e drug Penicill Propensi Active 2015-07 [facility] ins ty to 08-10 [place] adverse 00:00: of reaction 00 Medicin s to e drug Seconal Propensi Active 2015-07 [facility] ty to 08-10 [place] adverse 00:00: of reaction 00 Medicin s to e drug Cephalex Propensi Active 2015-07 [facility] in ty to 08-10 [place] adverse 00:00: of reaction 00 Medicin s to e drug Codeine Propensi Active 2015-07 [facility] ty to 08-10 [place] adverse 00:00: of reaction 00 Medicin s to e drug Demerol Propensi Active 2015-07 [facility] ty to 08-10 [place] adverse 00:00: of reaction 00 Medicin s to e drug Erythrom Propensi Active 2015-07 [facility] ycin ty to 08-10 [place] adverse 00:00: of reaction 00 Medicin s to e drug Cephalex Drug Active Rash 2015-[address] [facility] in Allergy 08-02 [facility] Codeine Drug Active Nausea And 2015-07 [facility] CEPHALEX Allergy Active Low Rash 2015-[address] [facility] IN 08-02 [facility] CODEINE Allergy Active Med N\\T\\V 2015-[address] [facility] 08-02 [facility] Center Iodine Propensi Active 2015-07 [facility] ty to 08-02 [place] adverse 00:00: of reaction 00 Medicin s to e drug Aspirin Propensi Active [facility] ty to 11-14 [place] adverse 00:00: of reaction 00 Medicin s to e drug Levaquin Propensi Active [facility] ty to 11-14 [place] adverse 00:00: of reaction 00 Medicin s to e drug Social History Social Habit Start Date Stop Date Quantity Comments Source History of tobacco Passive smoker [facility] use of Medicine History SDOH [facility] Colle ge Alcohol Std Drinks of Med icine History [facility] ge Alcohol Binge of Medicine History [facility] ge Alcohol Comment of Medici ne Exposure to 2022-06-09 2022-06-19 Not sure [facility] e SARS-CoV-2 (event) 00:00:00 09:35:00 of Med icine Alcohol intake 2022-04-28 2022-04-28 Current [facility] St [facility] es 00:00:00 00:00:00 non-drinker of Medical Ce nter alcohol (finding) Cigarette 2021-12-03 2021-12-03 [facility] pack-years 00:00:00 00:00:00 of Medicine History [facility] 2021-11-12 2021-11-12 [facility] ge Alcohol Frequency 00:00:00 00:00:00 of Medi cine Tobacco use and 2016-06-24 2016-06-[address] [facility] exposure 00:00:00 00:00:00 [facility] Sex Assigned At [address] [facility] 00:00:00 00:00:00 [facility] Smoking Status Start Date Stop Date Source Never smoker [facility] Medications Ordered Filled Start Stop Current Ordering Indication Dosage Frequency Signature Comments Components Source Medication Medication Date Date Medication? Clinician (SIG) Name Name diphenhydrA 2022- Yes Take 2 [facility] MINE 08-06 pills College (BENADRYL) 00:00: 04:59 together of 25 MG 00 :00 by mouth 1 Medicin tablet hour prior e to procedure (OVER THE COUNTER) predniSONE 2022- Yes Take a [facility] (DELTASONE) 08-06 single Colle ge 50 MG 00:00: 04:59 pill at 13 of tablet 00 :00 hours, 7 Medicin hours and e 1 hour prior to procedure for 3 separate doses famotidine 2022- Yes Take 1 [facility] (PEPCID) 20 08-0630 pill by [facility] MG tablet 00:00: 04:59 mouth 1 of 00 :00 hour prior Medicin to e procedure (OVER THE COUNTER) Alpha-Lipoi 2021-07 Yes 1{capsu Take 1 [facility] Acid 100 2-15 le} capsule by Col lege MG CAPS 10:26: mouth. of 16 Medicin e Ascorbic 2021-07 Yes 2000mg Take 2,000 [facility] Acid 1000 2-15 mg by [place] MG TABS 10:26: mouth. of 16 Medicin e B Complex 2021-07 Yes 1{capsu Take 1 [facility] Vitamins 2-15 le} capsule by Colle ge CAPS 10:26: mouth. of 16 Medicin e Bilberry 2021-07 Yes 1{capsu Take 1 [facility] 100 MG CAPS 2-15 le} capsule by Co llege 10:26: mouth. of 16 Medicin e Calcium 2021-07 Yes 1{tbl} Take 1 [facility] Carbonate-V 2-15 Tablet by Col lege itamin D 10:26: mouth. of (OYSTER 16 Medicin SHELL e CALCIUM/D) 500-200 MG-UNIT TABS Coenzyme 2021-07 Yes 100mg Take 100 [facility] Q10 100 MG 2-15 mg by [place] CAPS 10:26: mouth. of 16 Medicin e Woodruff Kinsman 2021-07 Yes 1{capsu Take 1 [facility] Extract 250 2-15 le} capsule by Co llege MG CAPS 10:26: mouth. of 16 Medicin e Austin-3 2021-07 Yes 2g Take 2 g [facility] Fatty Acids 2-15 by mouth. Col [facility]ge (FISH OIL) 10:26: of 1000 MG 16 Medicin CAPS e Resveratrol 2021-07 Yes 1{capsu Take 1 [facility] 50 MG CAPS 2-15 le} capsule by Col lege 10:26: mouth. of 16 Medicin e Vitamin A 2021-07 Yes 8000U Take 8,000 [facility] 2400 MCG 2-15 Units by [place] (8000 UT) 10:26: mouth. of CAPS 16 Medicin e vitamin E 2021-07 Yes 400U Take 400 [facility] 400 units 2-15 Units by Colleg e capsule 10:26: mouth. of 16 Medicin e VITAMIN D, 2021-07 Yes 3000U Take 3,000 [facility] CHOLECALCIF 2-15 Units by Jaime JONES, [place] 10:26: mouth. of 16 Medicin e LYSINE OR 2021-07 Yes 1{capsu Take 1 [facility] 2-15 le} capsule by [place] 10:26: mouth. of 16 Medicin e ACIDOPHILUS 2021-07 Yes 1{capsu Take 1 [facility] LACTOBACILL 2-15 le} capsule by Co llege US OR 10:26: mouth. of 16 Medicin e Glucosamine 2021-07 Yes 2{capsu Take 2 [facility] Sulfate-MSM 2-15 le} Capsules [facility] 500-500 MG 10:26: by mouth. of TABS 16 Medicin e Quercetin 2021-07 Yes 1{capsu Take 1 [facility] Dihydrate 2-15 le} capsule by [facility] POWD 10:26: mouth. of 16 Medicin e DIGESTIVE 2021-07 Yes 2{capsu Take 2 [facility] ENZYMES OR 2-15 le} Capsules Colle ge 10:26: by mouth. of 16 Medicin e Alpha-Lipoi 2021-07 Yes 1{capsu Take 1 [facility] c Acid 100 2-15 le} capsule by Col lege MG CAPS 10:26: mouth. of 16 Medicin e Ascorbic 2021-07 Yes 2000mg Take 2,000 [facility] Acid 1000 2-15 mg by [place] MG TABS 10:26: mouth. of 16 Medicin e B Complex 2021-07 Yes 1{capsu Take 1 [facility] [facility] Vitamins 2-15 le} capsule by [facility] ge CAPS 10:26: mouth. of 16 Medicin e Bilberry 2021-07 Yes 1{capsu Take 1 [facility] 100 MG CAPS 2-15 le} capsule by Co llege 10:26: mouth. of 16 Medicin e Calcium 2021-07 Yes 1{tbl} Take 1 [facility] Carbonate-V 2-15 Tablet by Col lege itamin D 10:26: mouth. of (OYSTER 16 Medicin SHELL e CALCIUM/D) 500-200 MG-UNIT TABS Coenzyme 2021-07 Yes 100mg Take 100 [facility] Q10 100 MG 2-15 mg by [place] CAPS 10:26: mouth. of 16 Medicin e Woodruff Kinsman 2021-07 Yes 1{capsu Take 1 [facility] Extract 250 2-15 le} capsule by Co llege MG CAPS 10:26: mouth. of 16 Medicin e Austin-3 2021-07 Yes 2g Take 2 g [facility] Fatty Acids 2-15 by mouth. Col lege (FISH OIL) 10:26: of 1000 MG 16 Medicin CAPS e Resveratrol 2021-07 Yes 1{capsu Take 1 [facility] 50 MG CAPS 2-15 le} capsule by Col lege 10:26: mouth. of 16 Medicin e Vitamin A 2021-07 Yes 8000U Take 8,000 [facility] 2400 MCG 2-15 Units by [place] (8000 UT) 10:26: mouth. of CAPS 16 Medicin e vitamin E 2021-07 Yes 400U Take 400 [facility] 10:26[facility] mouth. of 16 Medicin e VITAMIN D, 2021-07 Yes 3000U Take 3,000 [facility] CHOLECALCIF 2-15 Units by Jaime JONES, [place] 10:26: mouth. of 16 Medicin e LYSINE OR 2021-07 Yes 1{capsu Take 1 [place] [facility] 2-15 le} capsule by [place] 10:26: mouth. of 16 Medicin e ACIDOPHILUS 2021-07 Yes 1{capsu Take 1 [facility] LACTOBACILL 2-15 le} [facility]: mouth. of 16 Medicin e Glucosamine 2021-07 Yes 2{capsu Take 2 [facility] Sulfate-MSM 2-15 le} Capsules Jaime matt 500-500 MG 10:26: by mouth. of TABS 16 Medicin e Quercetin 2021-07 Yes 1{capsu Take 1 [facility] Dihydrate 2-15 le} capsule by Jaime gutierrez POWD 10:26: mouth. of 16 Medicin e DIGESTIVE 2021-07 Yes 2{capsu Take 2 [facility] [facility] ENZYMES OR 2-15 le} Capsules [facility] ge 10:26: by mouth. of 16 Medicin e Alpha-Lipoi 2021-07 Yes 1{capsu Take 1 [facility] c Acid 100 0-18 le} capsule by lege MG CAPS 08:23: mouth. of 18 Medicin e Ascorbic 2021-07 Yes 2000mg Take 2,000 [facility] Acid 1000 0-18 mg by [place] MG TABS 08:23: mouth. of 18 Medicin e B Complex 2021-07 Yes 1{capsu Take 1 [facility] [facility] Vitamins 0-18 le} capsule by [facility] ge CAPS 08:23: mouth. of 18 Medicin e Bilberry 2021-07 Yes 1{capsu Take 1 [facility] 100 MG CAPS 0-18 le} capsule by Co llege 08:23: mouth. of 18 Medicin e Calcium 2021-07 Yes 1{tbl} Take 1 [facility] Carbonate-V 0-18 Tablet by Col lege itamin D 08:23: mouth. of (OYSTER 18 Medicin SHELL e CALCIUM/D) 500-200 MG-UNIT TABS Coenzyme 2021-07 Yes 100mg Take 100 [facility] Q10 100 MG 0-18 mg by [place] CAPS 08:23: mouth. of 18 Medicin e Woodruff Kinsman 2021-07 Yes 1{capsu Take 1 [facility] Extract 250 0-18 le} capsule by Co llege MG CAPS 08:23: mouth. of 18 Medicin e Austin-3 2021-07 Yes 2g Take 2 g [facility] Fatty Acids 0-18 by mouth. Col lege (FISH OIL) 08:23: of 1000 MG 18 Medicin CAPS e Resveratrol 2021-07 Yes 1{capsu Take 1 [facility] 50 MG CAPS 0-18 le} capsule by Col lege 08:23: mouth. of 18 Medicin e Vitamin A 2021-07 Yes 8000U Take 8,000 [facility] 2400 MCG 0-18 Units by [place] (8000 UT) 08:23: mouth. of CAPS 18 Medicin e vitamin E 2021-07 Yes 400U Take 400 [facility] 400 units 0-18 Units by Colleg e capsule 08:23: mouth. of 18 Medicin e VITAMIN D, 2021-07 Yes 3000U Take 3,000 [facility] CHOLECALCIF 0-18 Units by Jaime gutierrez KAREN, [place] 08:23: mouth. of 18 Medicin e LYSINE OR 2021-07 Yes 1{capsu Take 1 [facility] [facility] 0-18 le} capsule by [place] 08:23: mouth. of 18 Medicin e ACIDOPHILUS 2021-07 Yes 1{capsu Take 1 [facility] LACTOBACILL 0-18 le} capsule by Co llege US OR 08:23: mouth. of 18 Medicin e Glucosamine 2021-07 Yes 2{capsu Take 2 [facility] Sulfate-MSM 0-18 le} Capsules Jaime ege 500-500 MG 08:23: by mouth. of TABS 18 Medicin e Quercetin 2021-07 Yes 1{capsu Take 1 [facility] Dihydrate 0-18 le} capsule by Jaime egjennifer POWD 08:23: mouth. of 18 Medicin e DIGESTIVE 2021-07 Yes 2{capsu Take 2 [facility] ENZYMES OR 0-18 le} Capsules Colle ge 08:23: by mouth. of 18 Medicin e Alpha-Lipoi 2021-07 Yes 1{capsu Take 1 [facility] c Acid 100 0-10 le} capsule by Col lege MG CAPS 11:23: mouth. of 36 Medicin e Ascorbic 2021-07 Yes 2000mg Take 2,000 [facility] Acid 1000 0-10 mg by [place] MG TABS 11:23: mouth. of 36 Medicin e B Complex 2021-07 Yes 1{capsu Take 1 [facility] [facility] Vitamins 0-10 le} capsule by [facility] ge CAPS 11:23: mouth. of 36 Medicin e Bilberry 2021-07 Yes 1{capsu Take 1 [facility] 100 MG CAPS 0-10 le} capsule by Co llege 11:23: mouth. of 36 Medicin e Calcium 2021-07 Yes 1{tbl} Take 1 [facility] Carbonate-V 0-10 Tablet by Col lege itamin D 11:23: mouth. of (OYSTER 36 Medicin SHELL e CALCIUM/D) 500-200 MG-UNIT TABS Coenzyme 2021-07 Yes 100mg Take 100 [facility] Q10 100 MG 0-10 mg by [place] CAPS 11:23: mouth. of 36 Medicin e Woodruff Kinsman 2021-07 Yes 1{capsu Take 1 [facility] Extract 250 0-10 le} capsule by Co llege MG CAPS 11:23: mouth. of 36 Medicin e Austin-3 2021-07 Yes 2g Take 2 g [facility] Fatty Acids 0-10 by mouth. Col lege (FISH OIL) 11:23: of 1000 MG 36 Medicin CAPS e Resveratrol 2021-07 Yes 1{capsu Take 1 [facility] 50 MG CAPS 0-10 le} capsule by Col lege 11:23: mouth. of 36 Medicin e Vitamin A 2021-07 Yes 8000U Take 8,000 [facility] 2400 MCG 0-10 Units by [place] (8000 UT) 11:23: mouth. of CAPS 36 Medicin e vitamin E 2021-07 Yes 400U Take 400 [facility] 400 units 0-10 Units by Colleg e capsule 11:23: mouth. of 36 Medicin e VITAMIN D, 2021-07 Yes 3000U Take 3,000 [facility] CHOLECALCIF 0-10 Units by Jaime gutierrez KAREN, [place] 11:23: mouth. of 36 Medicin e LYSINE OR 2021-07 Yes 1{capsu Take 1 [facility] 0-10 le} capsule by [place] 11:23: mouth. of 36 Medicin e ACIDOPHILUS 2021-07 Yes 1{capsu Take 1 [facility] LACTOBACILL 0-10 le} capsule by Eligio EVANGELISTA OR 11:23: mouth. of 36 Medicin e Glucosamine 2021-07 Yes 2{capsu Take 2 [facility] Sulfate-MSM 0-10 le} Capsules Jaime ege 500-500 MG 11:23: by mouth. of TABS 36 Medicin e Quercetin 2021-07 Yes 1{capsu Take 1 [facility] Dihydrate 0-10 le} capsule by Jaime gutierrez POWD 11:23: mouth. of 36 Medicin e DIGESTIVE 2021-07 Yes 2{capsu Take 2 [facility] ENZYMES OR 0-10 le} Capsules Colle ge 11:23: by mouth. of 36 Medicin e acetaminoph 2021-07 Yes arthritic 2{tbl} Take [address] [facility] en 500 mg 0-01 pain tablets by Rosendo s coapsule 11:01: mouth as Medic al 51 needed for Center Pain. vitamin A 2021-07 Yes 8000U QD Take 8,[address] 8000 UNIT 0-[address] capsule 11:01: mouth Medical 51 daily. Center b complex 2021-07 Yes 1{capsu QD Take [address] [facility] vitamins 0-01 le} capsule by [facility] capsule 11:01: mouth Medical 51 daily. Center ascorbic 2021-07 Yes 2000mg QD Take 2,[address] acid, 0-01 mg by [facility] vitamin C, 11:01: mouth Medica l (vitamin C) 51 daily. Center 1000 MG tablet cholecalcif 2021-07 Yes 3000U QD Take 3,[address] karen, 0-01 Units by [employer] vitamin D3, 11:01: mouth Medic al (VITAMIN D3 51 daily. Center ORAL) vitamin E 2021-07 Yes 400U QD Take [address] 400 UNIT 0-01 Units by [facility] capsule 11:01: mouth Medical 51 daily. Center calcium 2021-07 Yes 1{tbl} Take [address] carbonate-v 0-01 tablet by [facility] es itamin D3 11:01: mouth 2 Medic al (calcium-vi 51 (two) Center tamin D) times 500 daily with mg(1,250mg) breakfast -200 unit and per tablet dinner. magnesium 2021-07 Yes 400mg QD Take [address] oxide 0-01 mg by [facility] (MAG-OX) 11:01: mouth Medical 400 mg 51 daily. [place] (241.3 mg magnesium) tablet coenzyme 2021-07 Yes 100mg QD Take [address] Q10 100 mg 0-01 mg by [facility] capsule 11:01: mouth Medical 51 daily. Center QUERCETIN 2021-07 Yes 1{capsu Q.5D Take [address] DIHYDRATE, 0-01 le} capsule by [facility] BULK, MISC 11:01: mouth 2 Medi lolita 51 (two) Center times daily. alpha 2021-07 Yes 1{capsu QD Take [address] lipoic acid 0-01 le} capsule by Sue kes 100 mg Cap 11:01: mouth Medica l 51 daily. [place] omega-3 2021-07 Yes 2g Q.5D Take [address] [facility] acid ethyl 0-01 by mouth 2 [facility] esters 11:01: (two) Medical (LOVAZA) 1 51 times Center gram daily 2 capsule capsules morning; 1 cap evening . resveratroL 2021-07 Yes 1{capsu Q.5D Take [address] 50 mg Cap 0-01 le} capsule by Luke s 11:01: mouth 2 Medical 51 (two) Center times daily. bilberry 2021-07 Yes 1{capsu QD Take [address] [facility] 100 mg Cap 0-01 le} capsule by [facility] es 11:01: mouth Medical 51 daily. [place] A/C/E/zinc 2021-07 Yes 1{capsu QD Take [address] ox/cupric 0-01 le} capsule by Luke s ox/lutein 11:01: mouth Medical (MACUVITE 51 daily. Center EYE CARE ORAL) glucosamine 2021-07 Yes 2{capsu Q.5D Take [address] /methylsulf 0-01 le} capsules Luke s onylmeth 11:01: by mouth 2 Med ical (GLUCOSAMIN 51 (two) Center E MSM ORAL) times daily. olive leaf 2022-1 Yes 1{capsu Q.5D Take [address] extract 250 0-01 le} capsule by Sue kes mg Cap 11:01: mouth 2 Medical 51 (two) Center times daily. enzymes,dig 2021-07 Yes 2{capsu Q.5D Take [address] estive 0-01 le} capsules [facility] (DIGESTIVE 11:01: by mouth 2 M edical ENZYMES 51 (two) Center ORAL) times daily. LYSINE ORAL 2021-07 Yes 1{capsu Q.25W Take [address] 0-01 le} capsule by [facility] 11:01: mouth 4 Medical 51 (four) Center times a week. Lactobacill 2021-07 Yes 1{capsu QD Take [address] us 0-01 le} capsule by [facility] acidophilus 11:01: mouth Medic al (PROBIOTIC 51 daily. Center ORAL) Missing or 2021-07 Yes 1{tbl} QD Take [address] Non-Formula 0-01 tablet by Seamus es ry 11:01: mouth Medical Medication 51 daily Center Gamma-Oryz nol (Digestion ) . morinda 2021-07 Yes 1{capsu Q.25W Take [address] citrifolia 0-01 le} capsule by Seamus reese fruit (YULISA 11:01: mouth 4 Med ical ORAL) 51 (four) Center times a week Acai Gould; Pomegranat e; Goji . acetaminoph 2021-07 Yes arthritic 2{tbl} Take [address] [facility] en 500 mg 0-01 pain tablets by Rosendo s coapsule 11:01: mouth as Medic al 51 needed for Center Pain. vitamin A 2021-07 Yes 8000U QD Take 8,[address] 8000 UNIT 0-01 Units by [facility] capsule 11:01: mouth Medical 51 daily. Center b complex 2021-07 Yes 1{capsu QD Take [address] [facility] vitamins 0-01 le} capsule by [facility] [facility] capsule 11:01: mouth Medical 51 daily. Center ascorbic 2021-07 Yes 2000mg QD Take 2,[address] acid, 0-01 mg by [employer] vitamin C, 11:01: mouth Medica l (vitamin C) 51 daily. Center 1000 MG tablet cholecalcif 2021-07 Yes 3000U QD Take 3,[address] karen, 0-01 Units by [employer] vitamin D3, 11:01: mouth Medic al (VITAMIN D3 51 daily. Center ORAL) vitamin E 2021-07 Yes 400U QD Take [address] 400 UNIT 0-01 Units by [facility] capsule 11:01: mouth Medical 51 daily. Center calcium 2021-07 Yes 1{tbl} Take [address] carbonate-v 0-01 tablet by Seamus es itamin D3 11:01: mouth 2 Medic al (calcium-vi 51 (two) Center tamin D) times 500 daily with mg(1,250mg) breakfast -200 unit and per tablet dinner. magnesium 2021-07 Yes 400mg QD Take [address] oxide 0-01 mg by [facility] (MAG-OX) 11:01: mouth Medical 400 mg 51 daily. [place] (241.3 mg magnesium) tablet coenzyme 2021-07 Yes 100mg QD Take [address] [facility] Q10 100 mg 0-01 mg by [facility] capsule 11:01: mouth Medical 51 daily. [place] QUERCETIN 2021-07 Yes 1{capsu Q.5D Take [address] [facility] DIHYDRATE, 0-01 le} capsule by Seamus reese BULK, MISC 11:01: mouth 2 Medi lolita 51 (two) Center times daily. alpha 2021-07 Yes 1{capsu QD Take [address] [facility] lipoic acid 0-01 le} capsule by Sue kes 100 mg Cap 11:01: mouth Medica l 51 daily. [place] omega-3 2021-07 Yes 2g Q.5D Take [address] [facility] acid ethyl 0-01 by mouth 2 Seamus es esters 11:01: (two) Medical (LOVAZA) 1 51 times Center gram daily 2 capsule capsules morning; 1 cap evening . resveratroL 2021-07 Yes 1{capsu Q.5D Take [address] 50 mg Cap 0-01 le} capsule by Luke s 11:01: mouth 2 Medical 51 (two) Center times daily. bilberry 2021-07 Yes 1{capsu QD Take [address] [facility] 100 mg Cap 0-01 le} capsule by Seamus es 11:01: mouth Medical 51 daily. [place] A/C/E/zinc 2021-07 Yes 1{capsu QD Take [address] [facility] [address] [facility] ox/cupric 0-01 le} capsule by Luke s ox/lutein 11:01: mouth Medical (MACUVITE 51 daily. Center EYE CARE ORAL) glucosamine 2021-07 Yes 2{capsu Q.5D Take [address] /methylsulf 0-01 le} capsules Rosendo s onylmeth 11:01: by mouth 2 Med ical (GLUCOSAMIN 51 (two) Center E MSM ORAL) times daily. olive leaf 2021-07 Yes 1{capsu Q.5D Take [address] [facility] [address] [facility] extract 250 0-01 le} capsule by Sue kes mg Cap 11:01: mouth 2 Medical 51 (two) Center times daily. enzymes,dig 2021-07 Yes 2{capsu Q.5D Take [address] estive 0-01 le} capsules Suekes (DIGESTIVE 11:01: by mouth 2 M edical ENZYMES 51 (two) Center ORAL) times daily. LYSINE ORAL 2021-07 Yes 1{capsu Q.25W Take [address] [facility] 0-01 le} capsule by [facility] 11[facility]: mouth 4 Medical 51 (four) Center times a week. Lactobacill 2021-07 Yes 1{capsu QD Take [address] us 0-01 le} capsule by Julio César acidophilus 11:01: mouth Medic al (PROBIOTIC 51 daily. Center ORAL) Missing or 2021-07 Yes 1{tbl} QD Take [address] [facility] Non-Formula 0-01 tablet by Seamus es ry 11:01: mouth Medical Medication 51 daily Center Gamma-Oryz nol (Digestion ) . morinda 2021-07 Yes 1{capsu Q.25W Take [address] [facility] citrifolia 0-01 le} capsule by Seamus reese fruit (YULISA 11:01: mouth 4 Med ical ORAL) 51 (four) Center times a week Acai Gould; Pomegranat e; Goji . acetaminoph 2021-07 Yes arthritic 2{tbl} Take [address] [facility] en 500 mg 0-01 pain tablets by Rosendo sellers coapsule 11:01: mouth as Medic al 51 needed for Center Pain. vitamin A 2021-07 Yes 8000U QD Take 8,[address] 8000 UNIT 0-01 Units by [facility] capsule 11:01: mouth Medical 51 daily. Center b complex 2021-07 Yes 1{capsu QD Take [address] [facility] vitamins 0-01 le} capsule by [facility] capsule 11:01: mouth Medical 51 daily. Center ascorbic 2021-07 Yes 2000mg QD Take 2,[address] acid, 0-01 mg by [employer] vitamin C, 11:01: mouth Medica l (vitamin C) 51 daily. [place] 1000 MG tablet cholecalcif 2021-07 Yes 3000U QD Take 3,[address] [facility] karen, 0-01 Units by [employer] vitamin D3, 11:01: mouth Medic al (VITAMIN D3 51 daily. Center ORAL) vitamin E 2021-07 Yes 400U QD Take [address] [facility] 400 UNIT 0-[address] capsule 11:01: mouth Medical 51 daily. Center calcium 2021-07 Yes 1{tbl} Take [address] [facility] carbonate-v 0-01 tablet by [email or web address] itamin D3 11:01: mouth 2 Medic al (calcium-vi 51 (two) Center tamin D) times 500 daily with mg(1,250mg) breakfast -200 unit and per tablet dinner. magnesium 2021-07 Yes 400mg QD Take [address] [facility] oxide 0-01 mg by [employer] (MAG-OX) 11:01: mouth Medical 400 mg 51 daily. [place] (241.3 mg magnesium) tablet coenzyme 2021-07 Yes 100mg QD Take [address] [facility] Q10 100 mg 0-01 mg by [employer] capsule 11:01: mouth Medical 51 daily. [place] QUERCETIN 2021-07 Yes 1{capsu Q.5D Take [address] [facility] DIHYDRATE, 0-01 le} capsule by eSamus reese BULK, MISC 11:01: mouth 2 Medi lolita 51 (two) Center times daily. alpha 2021-07 Yes 1{capsu QD Take [address] [facility] lipoic acid 0-01 le} capsule by Sue kes 100 mg Cap 11:01: mouth Medica l 51 daily. [place] omega-3 2021-07 Yes 2g Q.5D Take [address] [facility] acid ethyl 0-01 by mouth 2 Seamus es esters 11:01: (two) Medical (LOVAZA) 1 51 times Center gram daily 2 capsule capsules morning; 1 cap evening . resveratroL 2021-07 Yes 1{capsu Q.5D Take [address] 50 mg Cap 0-01 le} capsule by Luke s 11:01: mouth 2 Medical 51 (two) Center times daily. bilberry 2021-07 Yes 1{capsu QD Take [address] [facility] 100 mg Cap 0-01 le} capsule by Saemus es 11:01: mouth Medical 51 daily. [place] A/C/E/zinc 2021-07 Yes 1{capsu QD Take [address] [facility] ox/cupric 0-01 le} capsule by Luke [facility] ox/lutein 11:01: mouth Medical (MACUVITE 51 daily. Center EYE CARE ORAL) glucosamine 2021-07 Yes 2{capsu Q.5D Take [address] /methylsulf 0-01 le} capsules Luke s onylmeth 11:01: by mouth 2 Med ical (GLUCOSAMIN 51 (two) Center E MSM ORAL) times daily. olive leaf 2021-07 Yes 1{capsu Q.5D Take [address] [facility] extract 250 0-01 le} capsule by Sue kes mg Cap 11:01: mouth 2 Medical 51 (two) Center times daily. enzymes,dig 2021-07 Yes 2{capsu Q.5D Take [address] estive 0-01 le} capsules [facility] (DIGESTIVE 11:01: by mouth 2 M edical ENZYMES 51 (two) Center ORAL) times daily. LYSINE ORAL 2021-07 Yes 1{capsu Q.25W Take [address] [facility] 0-01 le} capsule by [facility] 11:01: mouth 4 Medical 51 (four) Center times a week. Lactobacill 2021-07 Yes 1{capsu QD Take [address] us 0-01 le} capsule by Luneda acidophilus 11:01: mouth Medic al (PROBIOTIC 51 daily. Center ORAL) Missing or 2021-07 Yes 1{tbl} QD Take [address] [facility] Non-Formula 0-01 tablet by Seamus es ry 11:01: mouth Medical Medication 51 daily Center Gamma-Oryz nol (Digestion ) . morinda 2021-07 Yes 1{capsu Q.25W Take [address] [facility] citrifolia 0-01 le} capsule by Seamus es fruit (YULISA 11:01: mouth 4 Med ical ORAL) 51 (four) Center times a week Acai Gould; Pomegranat e; Goji . Alpha-Lipoi Yes 1{capsu Take 1 [facility] Acid 100 8-24 le} capsule by Col [facility]ge MG CAPS 14:12: mouth. of 46 Medicin e Ascorbic Yes 2000mg Take 2,000 [facility] Acid 1000 8-24 mg by [facility] MG TABS 14:12: mouth. of 46 Medicin e B Complex Yes 1{capsu Take 1 [place] [facility] Vitamins 8-24 le} capsule by [facility] ge CAPS 14:12: mouth. of 46 Medicin e Bilberry Yes 1{capsu Take 1 [facility] 100 MG CAPS 8-24 le} capsule by Co llege 14:12: mouth. of 46 Medicin e Calcium Yes 1{tbl} Take 1 [facility] Carbonate-V 8-24 Tablet by [facility] itamin D 14:12: mouth. of (OYSTER 46 Medicin SHELL e CALCIUM/D) 500-200 MG-UNIT TABS Coenzyme Yes 100mg Take 100 [facility] Q10 100 MG 8-24 mg by [place] CAPS 14:12: mouth. of 46 Medicin e Woodruff Kinsman Yes 1{capsu Take 1 [facility] Extract 250 8-24 le} capsule by Co llege MG CAPS 14:12: mouth. of 46 Medicin e [place]-3 Yes 2g Take 2 g [facility] Fatty Acids 8-24 by mouth. Col [facility] (FISH OIL) 14:12: of 1000 MG 46 Medicin CAPS e Resveratrol Yes 1{capsu Take 1 [facility] 50 MG CAPS 8-24 le} capsule by [facility] 14:12: mouth. of 46 Medicin e Vitamin A Yes 8000U Take 8,000 [facility] 2400 MCG 8-24 Units by [place] (8000 UT) 14:12: mouth. of CAPS 46 Medicin e vitamin E Yes 400U Take 400 [facility] mouth[facility] of 46 Medicin e VITAMIN D, Yes 3000U Take 3,000 [facility] CHOLECALCIF 8-24 Units by [facility] matt JONES, [place] 14:12: mouth. of 46 Medicin e LYSINE OR Yes 1{capsu Take 1 [place] 8-24 le} capsule by [place] 14:12: mouth. of 46 Medicin e ACIDOPHILUS Yes 1{capsu Take 1 [facility] LACTOBACILL 8-24 le} capsule by Co llege [place] 14:12: mouth. of 46 Medicin e Glucosamine Yes 2{capsu Take 2 [facility] Sulfate-MSM 8-24 le} Capsules Jaime ege 500-500 MG 14:12: by mouth. of TABS 46 Medicin e Quercetin Yes 1{capsu Take 1 [place] [facility] Dihydrate 8-24 le} capsule by Jaime ege POWD 14:12: mouth. of 46 Medicin e DIGESTIVE Yes 2{capsu Take 2 [place] [facility] ENZYMES [place] 8-24 le} Capsules Colle ge 14:12: by mouth. of 46 Medicin e Alpha-Lipoi Yes 1{capsu Take 1 [facility] c Acid 100 8-24 le} capsule by Col [facility]ge MG CAPS 14:12: mouth. of 46 Medicin e Ascorbic Yes 2000mg Take 2,000 [facility] Acid 1000 8-24 mg by [place] MG TABS 14:12: mouth. of 46 Medicin e B Complex Yes 1{capsu Take 1 [place] Vitamins 8-24 le} capsule by [facility] ge CAPS 14:12: mouth. of 46 Medicin e Bilberry Yes 1{capsu Take 1 [facility] 100 MG CAPS 8-24 le} capsule by Co llege 14:12: mouth. of 46 Medicin e Calcium Yes 1{tbl} Take 1 [facility] Carbonate-V 8-24 Tablet by Col lege itamin D 14:12: mouth. of (OYSTER 46 Medicin SHELL e CALCIUM/D) 500-200 MG-UNIT TABS Coenzyme Yes 100mg Take 100 [facility] Q10 100 MG 8-24 mg by [place] CAPS 14:12: mouth. of 46 Medicin e Woodruff Kinsman Yes 1{capsu Take 1 [facility] Extract 250 8-24 le} capsule by Co llege MG CAPS 14:12: mouth. of 46 Medicin e [place]-3 Yes 2g Take 2 g [facility] Fatty Acids 8-24 by mouth. Col [facility]ge (FISH OIL) 14:12: of 1000 MG 46 Medicin CAPS e Resveratrol Yes 1{capsu Take 1 [facility] 50 MG CAPS 8-24 le} capsule by Col [facility]ge 14:12: mouth. of 46 Medicin e Vitamin A Yes 8000U Take 8,000 [facility] 2400 MCG 8-24 Units by [place] (8000 UT) 14:12: mouth. of CAPS 46 Medicin e vitamin E Yes 400U Take 400 [facility] 400 units 8-24 Units by [facility] e capsule 14:12: mouth. of 46 Medicin e VITAMIN D, Yes 3000U Take 3,000 [facility] CHOLECALCIF 8-24 Units by Jaime JONES, [place] 14:12: mouth. of 46 Medicin e LYSINE OR Yes 1{capsu Take 1 [place] [facility] 8-24 le} capsule by [place] 14:12: mouth. of 46 Medicin e ACIDOPHILUS Yes 1{capsu Take 1 [facility] LACTOBACILL 8-24 le} capsule by Co llege US [place] 14:12: mouth. of 46 Medicin e Glucosamine Yes 2{capsu Take 2 [facility] Sulfate-MSM 8-24 le} Capsules Jaime ege 500-500 MG 14:12: by mouth. of TABS 46 Medicin e Quercetin Yes 1{capsu Take 1 [place] [facility] Dihydrate 8-24 le} capsule by Jaime gutierrez POWD 14:12: mouth. of 46 Medicin e DIGESTIVE Yes 2{capsu Take 2 [place] [facility] ENZYMES [place] 8-24 le} Capsules Colle ge 14:12: by mouth. of 46 Medicin e Alpha-Lipoi Yes 1{capsu Take 1 [facility] c Acid 100 8-24 le} capsule by Col [facility] MG CAPS 14:12: mouth. of 46 Medicin e Ascorbic Yes 2000mg Take 2,000 [facility] Acid 1000 8-24 mg by [place] MG TABS 14:12: mouth. of 46 Medicin e B Complex Yes 1{capsu Take 1 [place] [facility] Vitamins 8-24 le} capsule by Yan ge CAPS 14:12: mouth. of 46 Medicin e Bilberry Yes 1{capsu Take 1 [facility] 100 MG CAPS 8-24 le} capsule by [facility] 14:12: mouth. of 46 Medicin e Calcium Yes 1{tbl} Take 1 [facility] Carbonate-V 8-24 Tablet by Col [facility]ge itamin D 14:12: mouth. of (OYSTER 46 Medicin SHELL e CALCIUM/D) 500-200 MG-UNIT TABS Coenzyme Yes 100mg Take 100 [facility] Q10 100 MG 8-24 mg by College CAPS 14:12: mouth. of 46 Medicin e Woodruff Kinsman Yes 1{capsu Take 1 [facility] Extract 250 8-24 le} capsule by Co llege MG CAPS 14:12: mouth. of 46 Medicin e [place]-3 Yes 2g Take 2 g [facility] Fatty Acids 8-24 by mouth. Col lege (FISH OIL) 14:12: of 1000 MG 46 Medicin CAPS e Resveratrol Yes 1{capsu Take 1 [facility] 50 MG CAPS 8-24 le} capsule by Col [facility]ge 14:12: mouth. of 46 Medicin e Vitamin A Yes 8000U Take 8,000 [facility] 2400 MCG 8-24 Units by [place] (8000 UT) 14:12: mouth. of CAPS 46 Medicin e vitamin E Yes 400U Take 400 [facility] 400 units 8-24 Units by [facility] e capsule 14:12: mouth. of 46 Medicin e VITAMIN D, Yes 3000U Take 3,000 [facility] CHOLECALCIF 8-24 Units by Jaime JONES, [place] 14:12: mouth. of 46 Medicin e LYSINE [place] Yes 1{capsu Take 1 [place] 8-24 le} capsule by [place] 14:12: mouth. of 46 Medicin e ACIDOPHILUS Yes 1{capsu Take 1 [facility] LACTOBACILL 8-24 le} capsule by Co llege US [place] 14:12: mouth. of 46 Medicin e Glucosamine Yes 2{capsu Take 2 [facility] Sulfate-MSM 8-24 le} Capsules Jaime egjennifer 500-500 MG 14:12: by mouth. of TABS 46 Medicin e Quercetin Yes 1{capsu Take 1 [place] [facility] Dihydrate 8-24 le} capsule by Jaime gutierrez POWD 14:12: mouth. of 46 Medicin e DIGESTIVE Yes 2{capsu Take 2 [place] [facility] ENZYMES [place] 8-24 le} Capsules Colle ge 14:12: by mouth. of 46 Medicin e Acetaminoph 2021-0 2022- No Take by Jake ylcar en (TYLENOL 8-24 08-24 mouth. Colle ge 8 HOUR OR) 14:12: 00:00 of 46 :00 Medicin e Acetaminoph Yes Take by [place] [facility] (TYLENOL 8-11 mouth. Colleg e 8 HOUR OR) 09:14: of 34 Medicin e Alpha-Lipoi 0 Yes 1{capsu Take 1 [facility] Acid 100 8-11 le} capsule by Col [facility]ge MG CAPS 09:14: mouth. of 34 Medicin e Ascorbic Yes 2000mg Take 2,000 [facility] Acid 1000 8-11 mg by [place] MG TABS 09:14: mouth. of 34 Medicin e B Complex Yes 1{capsu Take 1 [place] [facility] Vitamins 8-11 le} capsule by Colle ge CAPS 09:14: mouth. of 34 Medicin e Bilberry Yes 1{capsu Take 1 [facility] 100 MG CAPS 8-11 le} capsule by Co [facility]lege 09:14: mouth. of 34 Medicin e Calcium Yes 1{tbl} Take 1 [facility] Carbonate-V 8-11 Tablet by Col lege itamin D 09:14: mouth. of (OYSTER 34 Medicin SHELL e CALCIUM/D) 500-200 MG-UNIT TABS Coenzyme Yes 100mg Take 100 [facility] Q10 100 MG 8-11 mg by College CAPS 09:14: mouth. of 34 Medicin e Woodruff Kinsman Yes 1{capsu Take 1 [facility] Extract 250 8-11 le} capsule by Co llege MG CAPS 09:14: mouth. of 34 Medicin e [place]-3 Yes 2g Take 2 g [facility] Fatty Acids 8-11 by mouth. Col lege (FISH OIL) 09:14: of 1000 MG 34 Medicin CAPS e Resveratrol 0 Yes 1{capsu Take 1 [facility] 50 MG CAPS 8-11 le} capsule by Col [facility]ge 09:14: mouth. of 34 Medicin e Vitamin A 0 Yes 8000U Take 8,000 [facility] 2400 MCG 8-11 Units by College (8000 UT) 09:14: mouth. of CAPS 34 Medicin e vitamin E 0 Yes 400U Take 400 [facility] 400 units 8-11 Units by [facility] e capsule 09:14: mouth. of 34 Medicin e VITAMIN D, Yes 3000U Take 3,000 [facility] CHOLECALCIF 8-11 Units by Jaime gutierrez [place]AREN, [place] 09:14: mouth. of 34 Medicin e LYSINE OR Yes 1{capsu Take 1 [place] [facility] 8-11 le} capsule by [place] 09:14: mouth. of 34 Medicin e ACIDOPHILUS Yes 1{capsu Take 1 [facility] LACTOBACILL 8-11 le} capsule by Dc ari [place] 09:14: mouth. of 34 Medicin e Glucosamine Yes 2{capsu Take 2 [facility] Sulfate-MSM 8-11 le} Capsules Jaime ege 500-500 MG 09:14: by mouth. of TABS 34 Medicin e Quercetin Yes 1{capsu Take 1 [place] [facility] Dihydrate 8-11 le} capsule by Jaime gutierrez POWD 09:14: mouth. of 34 Medicin e DIGESTIVE Yes 2{capsu Take 2 [place] [facility] ENZYMES [place] 8-11 le} Capsules Colle ge 09:14: by mouth. of 34 Medicin e predniSONE 2021- No Take a [facility] (DELTASONE) 02-03 single Colle ge 50 MG 00:00: 04:59 pill at 13 of tablet 00 :00 hours, 7 Medicin hours and e 1 hour prior to procedure for 3 separate doses diphenhydrA 2021- No Take 2 [place] [facility] MINE 02-03 pills [place] (BENADRYL) 00:00: 04:59 together of 25 MG 00 :00 by mouth 1 Medicin tablet hour prior e to procedure (OVER THE COUNTER) famotidine 2021- No Take 1 [facility] (PEPCID) 20 02-03 pill by Jaime ege MG tablet 00:00: 04:59 mouth 1 of 00 :00 hour prior Medicin to e procedure (OVER THE COUNTER) Acetaminoph Yes Take by [place] [facility] en (TYLENOL 7-21 mouth. Colleg e 8 HOUR [place]) 09:58: of 52 Medicin e Alpha-Lipoi Yes 1{capsu Take 1 [facility] c Acid 100 7-21 le} capsule by Col [facility] MG CAPS 09:58: mouth. of 52 Medicin e Ascorbic Yes 2000mg Take 2,000 [facility] Acid 1000 7-21 mg by [facility] MG TABS 09:58: mouth. of 52 Medicin e B Complex Yes 1{capsu Take 1 [place] [facility] Vitamins 7-21 le} capsule by Colle ge CAPS 09:58: mouth. of 52 Medicin e Bilberry Yes 1{capsu Take 1 [facility] 100 MG CAPS 7-21 le} capsule by Co llege 09:58: mouth. of 52 Medicin e Calcium Yes 1{tbl} Take 1 [facility] Carbonate-V 7-21 Tablet by Col lege itamin D 09:58: mouth. of (OYSTER 52 Medicin SHELL e CALCIUM/D) 500-200 MG-UNIT TABS Coenzyme Yes 100mg Take 100 [facility] Q10 100 MG 7-21 mg by College CAPS 09:58: mouth. of 52 Medicin e Woodruff Kinsman Yes 1{capsu Take 1 [facility] Extract 250 7-21 le} capsule by Co llege MG CAPS 09:58: mouth. of 52 Medicin e [place]-3 Yes 2g Take 2 g [facility] Fatty Acids 7-21 by mouth. Col lege (FISH OIL) 09:58: of 1000 MG 52 Medicin CAPS e Resveratrol Yes 1{capsu Take 1 [facility] 50 MG CAPS 7-21 le} capsule by Col lege 09:58: mouth. of 52 Medicin e Vitamin A Yes 8000U Take 8,000 [facility] 2400 MCG 7-21 Units by [place] (8000 UT) 09:58: mouth. of CAPS 52 Medicin e vitamin E Yes 400U Take 400 [facility] 400 units 7-21 Units by [facility] e capsule 09:58: mouth. of 52 Medicin e VITAMIN D, Yes 3000U Take 3,000 [facility] CHOLECALCIF 7-21 Units by Jaime matt [place]ES, [place] 09:58: mouth. of 52 Medicin e LYSINE OR Yes 1{capsu Take 1 [place] [facility] 7-21 le} capsule by College 09:58: mouth. of 52 Medicin e ACIDOPHILUS Yes 1{capsu Take 1 [facility] LACTOBACILL 7-21 le} capsule by Co llege US [place] 09:58: mouth. of 52 Medicin e Glucosamine Yes 2{capsu Take 2 [facility] Sulfate-MSM 7-21 le} Capsules Jaime ege 500-500 MG 09:58: by mouth. of TABS 52 Medicin e Quercetin Yes 1{capsu Take 1 [place] [facility] Dihydrate 7-21 le} capsule by Jaime ege POWD 09:58: mouth. of 52 Medicin e DIGESTIVE Yes 2{capsu Take 2 [place] [facility] ENZYMES [place] 7-21 le} Capsules Colle ge 09:58: by mouth. of 52 Medicin e Acetaminoph Yes Take by [place] [facility] en (TYLENOL 7-21 mouth. Colleg e 8 HOUR OR) 09:58: of 52 Medicin e Alpha-Lipoi Yes 1{capsu Take 1 [facility] c Acid 100 7-21 le} capsule by Col [facility] MG CAPS 09:58: mouth. of 52 Medicin e Ascorbic Yes 2000mg Take 2,000 [facility] Acid 1000 7-21 mg by [place] MG TABS 09:58: mouth. of 52 Medicin e B Complex Yes 1{capsu Take 1 [place] Vitamins 7-21 le} capsule by [facility] CAPS 09:58: mouth. of 52 Medicin e Bilberry Yes 1{capsu Take 1 [facility] 100 MG CAPS 7-21 le} capsule by Co llege 09:58: mouth. of 52 Medicin e Calcium Yes 1{tbl} Take 1 [facility] Carbonate-V 7-21 Tablet by Col [facility]ge itamin D 09:58: mouth. of (OYSTER 52 Medicin SHELL e CALCIUM/D) 500-200 MG-UNIT TABS Coenzyme Yes 100mg Take 100 [facility] Q10 100 MG 7-21 mg by [place] CAPS 09:58: mouth. of 52 Medicin e Woodruff Kinsman Yes 1{capsu Take 1 [facility] Extract 250 7-21 le} capsule by Co llege MG CAPS 09:58: mouth. of 52 Medicin e [place]-3 Yes 2g Take 2 g [facility] Fatty Acids 7-21 by mouth. Col lege (FISH OIL) 09:58: of 1000 MG 52 Medicin CAPS e Resveratrol Yes 1{capsu Take 1 [facility] 50 MG CAPS 7-21 le} capsule by Col [facility]ge 09:58: mouth. of 52 Medicin e Vitamin A Yes 8000U Take 8,000 [facility] 2400 MCG 7-21 Units by [place] (8000 UT) 09:58: mouth. of CAPS 52 Medicin e vitamin E Yes 400U Take 400 [facility] 400 units 7-21 Units by [facility] e capsule 09:58: mouth. of 52 Medicin e VITAMIN D, Yes 3000U Take 3,000 [facility] CHOLECALCIF 7-21 Units by Jaime [place], [place] 09:58: mouth. of 52 Medicin e LYSINE OR Yes 1{capsu Take 1 [place] [facility] 7-21 le} capsule by [place] 09:58: mouth. of 52 Medicin e ACIDOPHILUS Yes 1{capsu Take 1 [facility] LACTOBACILL 7-21 le} capsule by Eligio chapman [place] 09:58: mouth. of 52 Medicin e Glucosamine Yes 2{capsu Take 2 [facility] Sulfate-MSM 7-21 le} Capsules Jaime gutierrez 500-500 MG 09:58: by mouth. of TABS 52 Medicin e Quercetin Yes 1{capsu Take 1 [place] [facility] Dihydrate 7-21 le} capsule by Jaime gutierrez POWD 09:58: mouth. of 52 Medicin e DIGESTIVE Yes 2{capsu Take 2 [place] [facility] ENZYMES OR 7-21 le} Capsules Yan 09:58: by mouth. of 52 Medicin e PLENVU 140 Yes 140g Take 140 g [facility] g 5-31 by mouth [place] 00:00: Use as of 00 Directed. Medicin e PLENVU 140 Yes 140g Take 140 g [facility] g 5-31 by mouth [place] 00:00: Use as of 00 Directed. Medicin e PLENVU 140 Yes 140g Take 140 g [facility] g 5-31 by mouth [place] 00:00: Use as of 00 Directed. Medicin e PLENVU 140 2022-0 Yes 140g Take 140 g [facility] g 5-31 by mouth College 00:00: Use as of 00 Directed. Medicin jennifer PLENVU 140 2021-0 Yes 140g Take 140 g [facility] g 5-31 by mouth College 00:00: Use as of 00 Directed. Medicin jennifer PLENVU 140 2021-0 Yes 140g Take 140 g [facility] g 5-31 by mouth College 00:00: Use as of 00 Directed. Medicin jennifer PLENVU 140 2021-0 Yes 140g Take 140 g [facility] g 5-31 by mouth College 00:00: Use as of 00 Directed. Medicin e PLENVU 140 2021-0 Yes 140g Take 140 g [facility] g 5-31 by mouth College 00:00: Use as of 00 Directed. Medicin jennifer PLENVU 140 2021-0 Yes 140g Take 140 g [facility] g 5-31 by mouth College 00:00: Use as of 00 Directed. Medicin jennifer PLENVU 140 0 Yes 140g Take 140 g [facility] g 5-31 by mouth College 00:00: Use as of 00 Directed. Medicin jennifer PLENVU 140 0 Yes 140g Take 140 g [facility] g 5-31 by mouth College 00:00: Use as of 00 Directed. Medicin e Acetaminoph Yes Take by [place] [facility] (TYLENOL 5-26 mouth. Colleg e 8 HOUR OR) 10:06: of Medicin e Alpha-Lipoi Yes 1{capsu Take 1 [facility] c Acid 100 5-26 le} capsule by [facility] MG CAPS 10:06: mouth. of 28 Medicin e Ascorbic Yes 2000mg Take 2,000 [facility] Acid 1000 5-26 mg by [place] MG TABS 10:06: mouth. of 28 Medicin e B Complex Yes 1{capsu Take 1 [place] [facility] Vitamins 5-26 le} capsule by Colle ge CAPS 10:06: mouth. of 28 Medicin e Bilberry Yes 1{capsu Take 1 [facility] 100 MG CAPS 5-26 le} capsule by Co [facility]lege 10:06: mouth. of 28 Medicin e Calcium Yes 1{tbl} Take 1 [facility] Carbonate-V 5-26 Tablet by Col lege itamin D 10:06: mouth. of (OYSTER 28 Medicin SHELL e CALCIUM/D) 500-200 MG-UNIT TABS Coenzyme Yes 100mg Take 100 [facility] Q10 100 MG 5-26 mg by College CAPS 10:06: mouth. of 28 Medicin e Woodruff Kinsman Yes 1{capsu Take 1 [facility] Extract 250 5-26 le} capsule by Co llege MG CAPS 10:06: mouth. of 28 Medicin e [place]-3 Yes 2g Take 2 g [facility] Fatty Acids 5-26 by mouth. Col lege (FISH OIL) 10:06: of 1000 MG 28 Medicin CAPS e Resveratrol Yes 1{capsu Take 1 [facility] 50 MG CAPS 5-26 le} capsule by [facility]ge 10:06: mouth. of 28 Medicin e Vitamin A Yes 8000U Take 8,000 [facility] 2400 MCG 5-26 Units by College (8000 UT) 10:06: mouth. of CAPS 28 Medicin e vitamin E Yes 400U Take 400 [facility] 400 units 5-26 Units by [facility] e capsule 10:06: mouth. of 28 Medicin e VITAMIN D, Yes 3000U Take 3,000 [facility] CHOLECALCIF 5-26 Units by Jaime egjennifer [place], [place] 10:06: mouth. of 28 Medicin e LYSINE OR Yes 1{capsu Take 1 [place] [facility] 5-26 le} capsule by [facility] 10:06: mouth. of 28 Medicin e ACIDOPHILUS Yes 1{capsu Take 1 [facility] LACTOBACILL 5-26 le} capsule by Co llege US OR 10:06: mouth. of 28 Medicin e Glucosamine Yes 2{capsu Take 2 [facility] Sulfate-MSM 5-26 le} Capsules Jaime ege 500-500 MG 10:06: by mouth. of TABS 28 Medicin e Quercetin Yes 1{capsu Take 1 [place] [facility] Dihydrate 5-26 le} capsule by Jaime ege POWD 10:06: mouth. of 28 Medicin e DIGESTIVE Yes 2{capsu Take 2 [place] [facility] ENZYMES OR 5-26 le} Capsules Colle ge 10:06: by mouth. of 28 Medicin e Acetaminoph Yes Take by [place] [facility] en (TYLENOL 5-26 mouth. Colleg e 8 HOUR OR) 10:06: of 28 Medicin e Alpha-Lipoi Yes 1{capsu Take 1 [facility] c Acid 100 5-26 le} capsule by Col [facility]ge MG CAPS 10:06: mouth. of 28 Medicin e Ascorbic Yes 2000mg Take 2,000 [facility] Acid 1000 5-26 mg by [place] MG TABS 10:06: mouth. of 28 Medicin e B Complex Yes 1{capsu Take 1 [place] [facility] Vitamins 5-26 le} capsule by Colle ge CAPS 10:06: mouth. of 28 Medicin e Bilberry Yes 1{capsu Take 1 [facility] 100 MG CAPS 5-26 le} capsule by Co [facility]lege 10:06: mouth. of 28 Medicin e Calcium Yes 1{tbl} Take 1 [facility] Carbonate-V 5-26 Tablet by Col lege itamin D 10:06: mouth. of (OYSTER 28 Medicin SHELL e CALCIUM/D) 500-200 MG-UNIT TABS Coenzyme Yes 100mg Take 100 [facility] Q10 100 MG 5-26 mg by College CAPS 10:06: mouth. of 28 Medicin e Woodruff Kinsman Yes 1{capsu Take 1 [facility] Extract 250 5-26 le} capsule by Co llege MG CAPS 10:06: mouth. of 28 Medicin e [place]-3 Yes 2g Take 2 g [facility] Fatty Acids 5-26 by mouth. Col lege (FISH OIL) 10:06: of 1000 MG 28 Medicin CAPS e Resveratrol Yes 1{capsu Take 1 B aylor 50 MG CAPS 5-26 le} capsule by [facility] 10:06: mouth. of 28 Medicin e Vitamin A Yes 8000U Take 8,000 B aylor 2400 MCG 5-26 Units by College (8000 UT) 10:06: mouth. of CAPS 28 Medicin e vitamin E Yes 400U Take 400 Bayl or 400 units 5-26 Units by [facility] e capsule 10:06: mouth. of 28 Medicin e VITAMIN D, Yes 3000U Take 3,000 Nolberto CHOLECALCIF 5-26 Units by Jaime gutierrez [place], [place] 10:06: mouth. of 28 Medicin e LYSINE [place] Yes 1{capsu Take 1 [place] ro[place] 5-26 le} capsule by [place] 10:06: mouth. of 28 Medicin e ACIDOPHILUS Yes 1{capsu Take 1 B aylor LACTOBACILL 5-26 le} capsule by [facility] [place] 10:06: mouth. of 28 Medicin e Glucosamine Yes 2{capsu Take 2 B ayl[facility] Sulfate-MSM 5-26 le} Capsules Jaime ege 500-500 MG 10:06: by mouth. of TABS 28 Medicin e Quercetin Yes 1{capsu Take 1 [facility] Dihydrate 5-26 le} capsule by Jaime gutierrez POWD 10:06: mouth. of 28 Medicin e DIGESTIVE Yes 2{capsu Take 2 [facility] ENZYMES OR 5-26 le} Capsules Colle ge 10:06: by mouth. of 28 Medicin e Acetaminoph Yes Take by [facility] (TYLENOL 5-26 mouth. Colleg [facility] 8 HOUR OR) 10:06: of 28 Medicin e Alpha-Lipoi Yes 1{capsu Take 1 [facility] c Acid 100 5-26 le} capsule by [facility] MG CAPS 10:06: mouth. of 28 Medicin e Ascorbic Yes 2000mg Take 2,000 [facility] Acid 1000 5-26 mg by [place] MG TABS 10:06: mouth. of 28 Medicin e B Complex Yes 1{capsu Take 1 [facility] Vitamins 5-26 le} capsule by [facility] CAPS 10:06: mouth. of 28 Medicin e Bilberry Yes 1{capsu Take 1 [facility] 100 MG CAPS 5-26 le} capsule by [facility] 10:06: mouth. of 28 Medicin e Calcium Yes 1{tbl} Take 1 [facility] Carbonate-V 5-26 Tablet by [facility] lege itamin D 10:06: mouth. of (OYSTER 28 Medicin SHELL e CALCIUM/D) 500-200 MG-UNIT TABS Coenzyme Yes 100mg Take 100 [facility] or Q10 100 MG 5-26 mg by College CAPS 10:06: mouth. of 28 Medicin e Woodruff Kinsman Yes 1{capsu Take 1 Ba y[facility] Extract 250 5-26 le} capsule by Co llege MG CAPS 10:06: mouth. of 28 Medicin e [place]-3 Yes 2g Take 2 g [facility] Fatty Acids 5-26 by mouth. [facility] (FISH OIL) 10:06: of 1000 MG 28 Medicin CAPS e Resveratrol Yes 1{capsu Take 1 [facility] aylor 50 MG CAPS 5-26 le} capsule by [facility] 10:06: mouth. of 28 Medicin e Vitamin A Yes 8000U Take 8,000 [facility] aylor 2400 MCG 5-26 Units by [place] (8000 UT) 10:06: mouth. of CAPS 28 Medicin e vitamin E Yes 400U Take 400 [facility] or 400 units 5-26 Units by [facility] capsule 10:06: mouth. of 28 Medicin e VITAMIN D, Yes 3000U Take 3,000 Nolberto CHOLECALCIF 5-26 Units by Jaime gutierrez KAREN, [place] 10:06: mouth. of 28 Medicin e LYSINE OR Yes 1{capsu Take 1 [place] ro[facility] 5-26 le} capsule by [place] 10:06: mouth. of 28 Medicin e ACIDOPHILUS Yes 1{capsu Take 1 [facility] LACTOBACILL 5-26 le} capsule by Co llege US OR 10:06: mouth. of 28 Medicin e Glucosamine Yes 2{capsu Take 2 [facility] Sulfate-MSM 5-26 le} Capsules Jaime ege 500-500 MG 10:06: by mouth. of TABS 28 Medicin e Quercetin Yes 1{capsu Take 1 [facility] [facility] Dihydrate 5-26 le} capsule by Jaime gutierrez POWD 10:06: mouth. of 28 Medicin e DIGESTIVE Yes 2{capsu Take 2 [facility] [facility] ENZYMES OR 5-26 le} Capsules Colle ge 10:06: by mouth. of 28 Medicin e Acetaminoph Yes Take by [facility] (TYLENOL 5-10 mouth. [facility] e 8 HOUR OR) 14:04: of 17 Medicin e Alpha-Lipoi Yes 1{capsu Take 1 B aylor c Acid 100 5-10 le} capsule by [facility] MG CAPS 14:04: mouth. of 17 Medicin e Ascorbic Yes 2000mg Take 2,000 [facility] Acid 1000 5-10 mg by [place] MG TABS 14:04: mouth. of 17 Medicin e B Complex Yes 1{capsu Take 1 [place] [facility] Vitamins 5-10 le} capsule by [facility] CAPS 14:04: mouth. of 17 Medicin e Bilberry Yes 1{capsu Take 1 [facility] 100 MG CAPS 5-10 le} capsule by [facility] 14:04: mouth. of 17 Medicin e Calcium Yes 1{tbl} Take 1 [facility] Carbonate-V 5-10 Tablet by [facility] itamin D 14:04: mouth. of (OYSTER 17 Medicin SHELL e CALCIUM/D) 500-200 MG-UNIT TABS Coenzyme Yes 100mg Take 100 [facility] or Q10 100 MG 5-10 mg by College CAPS 14:04: mouth. of 17 Medicin e Woodruff Kinsman Yes 1{capsu Take 1 Ba ylor Extract 250 5-10 le} capsule by [facility] llege MG CAPS 14:04: mouth. of 17 Medicin e [place]-3 Yes 2g Take 2 g [facility] Fatty Acids 5-10 by mouth. [facility] lege (FISH OIL) 14:04: of 1000 MG 17 Medicin CAPS e Resveratrol Yes 1{capsu Take 1 B aylor 50 MG CAPS 5-10 le} capsule by [facility] 14:04: mouth. of 17 Medicin e Vitamin A Yes 8000U Take 8,000 B aylor 2400 MCG 5-10 Units by [place] (8000 UT) 14:04: mouth. of CAPS 17 Medicin e vitamin E Yes 400U Take 400 [facility] or 400 units 5-10 Units by [facility] e capsule 14:04: mouth. of 17 Medicin e VITAMIN D, Yes 3000U Take 3,000 [facility] CHOLECALCIF 5-10 Units by Jaime JONES, [place] 14:04: mouth. of 17 Medicin e LYSINE OR Yes 1{capsu Take 1 [place] ro[facility] 5-10 le} capsule by [place] 14:04: mouth. of 17 Medicin e ACIDOPHILUS Yes 1{capsu Take 1 [facility] LACTOBACILL 5-10 le} capsule by Co llege US OR 14:04: mouth. of 17 Medicin e Glucosamine Yes 2{capsu Take 2 [facility] Sulfate-MSM 5-10 le} Capsules Jaime ege 500-500 MG 14:04: by mouth. of TABS 17 Medicin e Quercetin Yes 1{capsu Take 1 [place] [facility] Dihydrate 5-10 le} capsule by Jaime ege POWD 14:04: mouth. of 17 Medicin e DIGESTIVE Yes 2{capsu Take 2 [facility] [facility] ENZYMES OR 5-10 le} Capsules Colle ge 14:04: by mouth. of 17 Medicin e Acetaminoph Yes Take by [facility] (TYLENOL 5-09 mouth. [facility] e 8 HOUR OR) 09:09: of 30 Medicin e Alpha-Lipoi Yes 1{capsu Take 1 B aylor c Acid 100 5-09 le} capsule by [facility] lege MG CAPS 09:09: mouth. of 30 Medicin e Ascorbic Yes 2000mg Take 2,000 [facility] a[facility] Acid 1000 5-09 mg by [place] MG TABS 09:09: mouth. of 30 Medicin e B Complex Yes 1{capsu Take 1 [place] [facility] Vitamins 5-09 le} capsule by [facility] ge CAPS 09:09: mouth. of 30 Medicin e Bilberry Yes 1{capsu Take 1 Bayl or 100 MG CAPS 5-09 le} capsule by [facility] 09:09: mouth. of 30 Medicin e Calcium Yes 1{tbl} Take 1 [facility] Carbonate-V 5-09 Tablet by [facility] lege itamin D 09:09: mouth. of (OYSTER 30 Medicin SHELL e CALCIUM/D) 500-200 MG-UNIT TABS Coenzyme Yes 100mg Take 100 [facility] or Q10 100 MG 5-09 mg by [place] CAPS 09:09: mouth. of 30 Medicin e Woodruff Kinsman Yes 1{capsu Take 1 Ba y[facility] Extract 250 5-09 le} capsule by [facility]lege MG CAPS 09:09: mouth. of 30 Medicin e [place]-3 Yes 2g Take 2 g [facility] Fatty Acids 5-09 by mouth. [facility] le[facility] (FISH OIL) 09:09: of 1000 MG 30 Medicin CAPS e Resveratrol Yes 1{capsu Take 1 B aylor 50 MG CAPS 5-09 le} capsule by [facility] 09:09: mouth. of 30 Medicin e Vitamin A Yes 8000U Take 8,000 B aylor 2400 MCG 5-09 Units by [place] (8000 UT) 09:09: mouth. of CAPS 30 Medicin e vitamin E Yes 400U Take 400 [facility] or 400 units 5-09 Units by [facility] e capsule 09:09: mouth. of 30 Medicin e VITAMIN D, Yes 3000U Take 3,000 N[facility] CHOLECALCIF 5-09 Units by Jaime JONES, [place] 09:09: mouth. of 30 Medicin e LYSINE OR Yes 1{capsu Take 1 [place] roc[facility] 5-09 le} capsule by [place] 09:09: mouth. of 30 Medicin e ACIDOPHILUS Yes 1{capsu Take 1 [facility]or LACTOBACILL 5-09 le} capsule by Co llmatt US OR 09:09: mouth. of 30 Medicin e Glucosamine Yes 2{capsu Take 2 [facility] Sulfate-MSM 5-09 le} Capsules Jaime ege 500-500 MG 09:09: by mouth. of TABS 30 Medicin e Quercetin Yes 1{capsu Take 1 [facility] [facility] Dihydrate 5-09 le} capsule by Jaime gutierrez POWD 09:09: mouth. of 30 Medicin e DIGESTIVE Yes 2{capsu Take 2 [facility] [facility] ENZYMES OR 5-09 le} Capsules Colle ge 09:09: by mouth. of 30 Medicin e miscellaneo Yes walker. [facility] 4- [facility] Misc 00:00: Medica l 00 Center miscellaneo Yes walker. [facility] 10-24 [facility] Misc 00:00: Medica l 00 Center miscellaneo 2022-[address] [facility] 4-21 [facility] Mis 00:00: Medica l 00 Center traMADoL 2021-0 2- No 50mg Take [address] [facility] (ULTRAM) 50 4-21 05-01 tablet (50 [facility] mg tablet 00:00: 23:59 mg total) Me dical 00 :00 by mouth Center every 6 (six) hours as needed for Pain for up to 10 days. Max Daily Amount: 200 mg traMADoL 2021-0 2- No 50mg Take [address] [facility] (ULTRAM) 50 4-21 05-01 tablet (50 [facility] mg tablet 00:00: 23:59 mg total) Me dical 00 :00 by mouth Center every 6 (six) hours as needed for Pain for up to 10 days. Max Daily Amount: 200 mg traMADoL 2021-0 2021- No 50mg Take [address] [facility] (ULTRAM) 50 4-21 05-01 tablet (50 [facility] mg tablet 00:00: 23:59 mg total) Me dical 00 :00 by mouth Center every 6 (six) hours as needed for Pain for up to 10 days. Max Daily Amount: 200 mg acetaminoph 2021-0 3- No 650mg Take 650 Nolberto en 325 mg 4-20 04-16 mg by College tablet 00:00: 04:59 mouth. of 00 :00 Medicin e acetaminoph 2021-0 3- No 650mg Take 650 N[facility]berto en 325 mg 4-20 04-16 mg by College tablet 00:00: 04:59 mouth. of 00 :00 Medicin e acetaminoph 2-0 2023- No 650mg Take 650 N[facility]berto en 325 mg 4-20 04-16 mg by College tablet 00:00: 04:59 mouth. of 00 :00 Medicin e acetaminoph 2-0 2023- No 650mg Take 650 N[facility]to en 325 mg 4-20 04-16 mg by College tablet 00:00: 04:59 mouth. of 00 :00 Medicin e acetaminoph 2-0 2023- No 650mg Take 650 [facility] en 325 mg 4-20 04-16 mg by College tablet 00:00: 04:59 mouth. of 00 :00 Medicin e acetaminoph 2022-0 2023- No 650mg Take 650 [facility] en 325 mg 4-20 04-16 mg by College tablet 00:00: 04:59 mouth. of 00 :00 Medicin e acetaminoph 2022-0 2023- No 650mg Take 650 [facility] en 325 mg 4-20 04-16 mg by College tablet 00:00: 04:59 mouth. of 00 :00 Medicin e acetaminoph 2022-0 2023- No 650mg Take 650 [facility] en 325 mg 4-20 04-16 mg by College tablet 00:00: 04:59 mouth. of 00 :00 Medicin e acetaminoph 2022-0 2023- No 650mg Take 650 [facility] en 325 mg 4-20 04-16 mg by College tablet 00:00: 04:59 mouth. of 00 :00 Medicin e acetaminoph 2022-0 2023- No 650mg Take 650 N[facility]to en 325 mg 4-20 04-16 mg by College tablet 00:00: 04:59 mouth. of 00 :00 Medicin e acetaminoph 2022-0 2023- No 650mg Take 650 N[facility]berto en 325 mg 4-20 04-16 mg by College tablet 00:00: 04:59 mouth. of 00 :00 Medicin e acetaminoph 2022-0 2023- No 650mg Take 650 [facility] en 325 mg 4-20 04-16 mg by College tablet 00:00: 04:59 mouth. of 00 :00 Medicin e acetaminoph 2022-0 2023- No 650mg Take 650 [facility] en 325 mg 4-20 04-16 mg by College tablet 00:00: 04:59 mouth. of 00 :00 Medicin e acetaminoph 2022-0 2023- No 650mg Take 650 [facility] en 325 mg 4-20 04-16 mg by College tablet 00:00: 04:59 mouth. of 00 :00 Medicin e acetaminoph 2022-0 2023- No 650mg Take 650 [facility] en 325 mg 4-20 04-16 mg by College tablet 00:00: 04:59 mouth. of 00 :00 Medicin e acetaminoph 2022-0 2022- No 650mg Take [address] [facility] [address] [facility] 4-20 09-08 [facility]TYLENOL) 00:00: 00:00 (650 mg Medi lolita 325 MG 00 :00 total) by [place] tablet mouth every 6 (six) hours as needed for Pain for up to 360 days. acetaminoph 2021- No 650mg Take [address] [facility] 4-20 09-08 [facility] (TYLENOL) 00:00: 00:00 (650 mg Medi lolita 325 MG 00 :00 total) by Center tablet mouth every 6 (six) hours as needed for Pain for up to 360 days. acetaminoph 2021- No 650mg Take [address] [facility] 4-20 09-08 [facility] (TYLENOL) 00:00: 00:00 (650 mg Medi lolita 325 MG 00 :00 total) by Center tablet mouth every 6 (six) hours as needed for Pain for up to 360 days. Acetaminoph 2019-07 Yes Take by [facility] (TYLENOL 0-20 mouth. Colleg [facility] 8 HOUR OR) 14:59: of 50 Medicin e Acetaminoph 2019-07 Yes Take by [facility] (TYLENOL 0-20 mouth. [facility] 8 [...] no improvemen t with bowel movement polyethylen 2019-07- No 17g Take 17 g [facility] e glycol 0-20 05-09 by mouth Colleg e (MIRALAX) 00:00: 00:00 daily. of 17 GM/SCOOP 00 :00 Please Medici n powder start e taking half dose daily for 2 weeks and slowly increase to 17g daily if no improvemen t with bowel movement polyethylen 2015-07- No 17g Take 17 g [facility] e glycol 2-05 10-20 by mouth Colleg e (MIRALAX) 00:00: 00:00 daily. of powder 00 :00 Medicin e Vital Signs Vital Name Observation Time Observation Value Comments Source Systolic blood 2022-06-19 15:42:00 122 mm[Hg] [facility] pressure Medicine Diastolic blood 2022-06-19 15:42:00 75 mm[Hg] [facility] of pressure Medicine Heart rate 2022-06-19 15:42:00 87 /min [facility] ollege of Medicine Body temperature 2022-06-19 15:42:00 36.67 [facility] Body height 2022-06-19 15:42:00 165.1 cm [facility] of Medicine Body weight 2022-06-19 15:42:00 54.885 kg [facility] of Medicine BMI 2022-06-19 15:42:00 20.14 kg/m2 [facility]lege of Medicine Systolic blood 2022-06-19 16:24:00 122 mm[Hg] [facility] pressure Medicine Diastolic blood 2022-06-19 16:24:00 75 mm[Hg] [facility] pressure Medicine Heart rate 2022-06-19 16:24:00 87 /min [facility] of Medicine Body temperature 2022-06-19 16:24:00 36.67 [facility] Body height 2022-06-19 16:24:00 165.1 cm [facility] of Medicine Body weight 2022-06-19 16:24:00 54.885 kg [facility] ol[facility] of Medicine BMI 2022-06-19 16:24:00 20.14 kg/m2 [facility] ol[facility] of Medicine Systolic blood 2022-04-22 13:19:00 109 mm[Hg] [facility] of pressure Medicine Diastolic blood 2022-04-22 13:19:00 66 mm[Hg] [facility] of pressure Medicine Heart rate 2022-04-22 13:19:00 92 /min [facility] of Medicine Body temperature 2022-04-22 13:19:00 36.5 [facility] Body height 2022-04-22 13:19:00 165.1 cm [facility] of Medicine Body weight 2022-04-22 13:19:00 53.434 kg [facility] of Medicine BMI 2022-04-22 13:19:00 19.60 kg/m2 [facility] of [facility] Systolic blood 2022-04-14 16:24:00 125 mm[Hg] [facility] pressure Medicine Diastolic blood 2022-04-14 16:24:00 73 mm[Hg] [facility] Medicine Heart rate 2022-04-14 16:24:00 94 /min [facility] Body temperature 2022-04-14 16:24:00 36.11 [facility] Respiratory rate 2022-04-14 16:24:00 18 /min [facility] Body height 2022-04-14 16:24:00 165.1 cm [facility] Body weight 2022-04-14 16:24:00 53.524 kg [facility] BMI 2022-04-14 16:24:00 19.64 kg/m2 [facility] HEIGHT 2022-04-04 11:01:00 165.1 cm WEIGHT 2022-04-04 11:01:00 52.98 kg HEIGHT 2022-03-13 14:03:00 165.1 cm WEIGHT 2022-03-13 14:03:00 53.071 kg HEIGHT 2022-04-04 11:01:00 165.1 cm WEIGHT 2022-04-04 11:01:00 52.98 kg HEIGHT 2022-03-13 14:03:00 165.1 cm WEIGHT 2022-03-13 14:03:00 53.071 kg HEIGHT 2022-04-04 11:01:00 165.1 cm WEIGHT 2022-04-04 11:01:00 52.98 kg HEIGHT 2022-03-13 14:03:00 165.1 cm WEIGHT 2022-03-13 14:03:00 53.071 kg Systolic blood 2022-02-27 15:26:00 112 mm[Hg] [facility] pressure Medicine Diastolic blood 2022-02-27 15:26:00 77 mm[Hg] [facility] Medicine Heart rate 2022-02-27 15:26:00 84 /min [facility] Body height 2022-02-27 15:26:00 165.1 cm [facility] of Medicine Body weight 2022-02-27 15:26:00 53.071 kg [facility] Medicine BMI 2022-02-27 15:26:00 19.47 kg/m2 [facility] Medicine Systolic blood 2022-02-27 14:30:00 112 mm[Hg] [facility] of pressure Medicine Diastolic blood 2022-02-27 14:30:00 75 mm[Hg] [facility] of pressure Medicine Heart rate 2022-02-27 14:30:00 79 /min [facility] of Medicine Body temperature 2022-02-27 14:30:00 36.28 [facility] Body height 2022-02-27 14:30:00 165.1 cm [facility] of Medicine Body weight 2022-02-27 14:30:00 53.343 kg [facility] Medicine BMI 2022-02-27 14:30:00 19.57 kg/m2 [facility] of Medicine Systolic blood 2022-02-26 19:11:00 112 mm[Hg] [facility] of pressure Medicine Diastolic blood 2022-02-26 19:11:00 77 mm[Hg] [facility] of pressure Medicine Heart rate 2022-02-26 19:11:00 89 /min [facility] of Medicine Body temperature 2022-02-26 19:11:00 36.89 [facility] Body height 2022-02-26 19:11:00 165.1 cm [facility] Medicine Body weight 2022-02-26 19:11:00 53.524 kg [facility] Medicine BMI 2022-02-26 19:11:00 19.64 kg/m2 [facility] of Medicine Systolic blood 2022-02-13 14:14:00 117 mm[Hg] [facility] of pressure Medicine Diastolic blood 2022-02-13 14:14:00 76 mm[Hg] [facility] of pressure Medicine Heart rate 2022-02-13 14:14:00 78 /min [facility] Medicine Body temperature 2022-02-13 14:14:00 36.11 [facility] Respiratory rate 2022-02-13 14:14:00 18 /min [facility] Body height 2022-02-13 14:14:00 165.1 cm [facility] Body weight 2022-02-13 14:14:00 53.524 kg [facility] Medicine BMI 2022-02-13 14:14:00 19.64 kg/m2 [facility] Systolic blood 2022-01-23 16:40:00 108 mm[Hg] [facility] pressure Medicine Diastolic blood 2022-01-23 16:40:00 71 mm[Hg] [facility] pressure Medicine Body height 2022-01-23 16:40:00 165.1 cm [facility] Body weight 2022-01-23 16:40:00 48.535 kg [facility] Medicine BMI 2022-01-23 16:40:00 17.81 kg/m2 [facility] of Medicine Systolic blood 2022-01-23 14:58:00 108 mm[Hg] [facility] pressure Medicine Diastolic blood 2022-01-23 14:58:00 71 mm[Hg] [facility] pressure Medicine Heart rate 2022-01-23 14:58:00 86 /min [facility] ol[facility] of Medicine Body temperature 2022-01-23 14:58:00 36.67 [facility] Respiratory rate 2022-01-23 14:58:00 18 /min [facility] Body height 2022-01-23 14:58:00 165.1 cm [facility] Medicine Body weight 2022-01-23 14:58:00 48.898 kg [facility] BMI 2022-01-23 14:58:00 17.94 kg/m2 [facility] HEIGHT 2022-01-14 08:42:00 165.1 cm WEIGHT 2022-01-14 08:42:00 50.576 kg HEIGHT 2022-01-01 09:51:00 165.1 cm WEIGHT 2022-01-01 09:51:00 53.071 kg HEIGHT 2022-01-14 08:42:00 165.1 cm WEIGHT 2022-01-14 08:42:00 50.576 kg HEIGHT 2022-01-01 09:51:00 165.1 cm WEIGHT 2022-01-01 09:51:00 53.071 kg HEIGHT 2022-01-14 08:42:00 165.1 cm WEIGHT 2022-01-14 08:42:00 50.576 kg HEIGHT 2022-01-01 09:51:00 165.1 cm WEIGHT 2022-01-01 09:51:00 53.071 kg Systolic blood 2021-12-03 13:35:00 104 mm[Hg] [facility] pressure Medicine Diastolic blood 2021-12-03 13:35:00 66 mm[Hg] [facility] Medicine Heart rate 2021-12-03 13:35:00 85 /min [facility] Medicine Body height 2021-12-03 13:35:00 165.1 cm [facility] Medicine Body weight 2021-12-03 13:35:00 53.162 kg [facility] Medicine BMI 2021-12-03 13:35:00 19.50 kg/m2 [facility] Medicine Systolic blood 2021-11-28 16:21:00 127 mm[Hg] [facility] pressure Medicine Diastolic blood 2021-11-28 16:21:00 74 mm[Hg] [facility] Medicine Heart rate 2021-11-28 16:21:00 86 /min [facility] Medicine Body temperature 2021-11-28 16:21:00 36.67 [facility] Body height 2021-11-28 16:21:00 165.1 cm [facility] of Medicine Body weight 2021-11-28 16:21:00 52.164 kg [facility] of Medicine BMI 2021-11-28 16:21:00 19.14 kg/m2 [facility] Medicine Systolic blood 2021-11-28 15:06:00 127 mm[Hg] [facility] pressure Medicine Diastolic blood 2021-11-28 15:06:00 74 mm[Hg] [facility] pressure Medicine Heart rate 2021-11-28 15:06:00 86 /min [facility] of Medicine Body temperature 2021-11-28 15:06:00 36.67 [facility] Respiratory rate 2021-11-28 15:06:00 18 /min [facility] Body height 2021-11-28 15:06:00 165.1 cm [facility] of Medicine Body weight 2021-11-28 15:06:00 52.345 kg [facility] BMI 2021-11-28 15:06:00 19.20 kg/m2 [facility] of Medicine Systolic blood 2021-11-12 18:58:00 117 mm[Hg] [facility] pressure Medicine Diastolic blood 2021-11-12 18:58:00 66 mm[Hg] [facility] Medicine Heart rate 2021-11-12 18:58:00 45 /min [facility] ol[facility] of Medicine Body temperature 2021-11-12 18:58:00 36.78 [facility] Body height 2021-11-12 18:58:00 165.1 cm [facility] Body weight 2021-11-12 18:58:00 53.978 kg [facility] of Medicine BMI 2021-11-12 18:58:00 19.80 kg/m2 [facility] of Medicine Body weight 2021-11-11 13:52:00 53.071 kg [facility] of Medicine BMI 2021-11-11 13:52:00 19.47 kg/m2 [facility] ol[facility] of Medicine Systolic blood 2021-11-11 13:52:00 110 mm[Hg] [facility] pressure Medicine Diastolic blood 2021-11-11 13:52:00 68 mm[Hg] [facility] pressure Medicine Heart rate 2021-11-11 13:52:00 90 /min [facility] of Medicine Body temperature 2021-11-11 13:52:00 36.56 [facility] Body height 2021-11-11 13:52:00 165.1 cm [facility] of Medicine HEIGHT 2021-10-22 12:32:00 165.1 cm WEIGHT 2021-10-22 12:32:00 52.3 kg HEIGHT 2021-10-21 11:46:00 167.6 cm WEIGHT 2021-10-21 11:46:00 53.071 kg HEIGHT 2021-10-22 12:32:00 165.1 cm WEIGHT 2021-10-22 12:32:00 52.3 kg HEIGHT 2021-10-21 11:46:00 167.6 cm WEIGHT 2021-10-21 11:46:00 53.071 kg HEIGHT 2021-10-22 12:32:00 165.1 cm WEIGHT 2021-10-22 12:32:00 52.3 kg HEIGHT 2021-10-21 11:46:00 167.6 cm WEIGHT 2021-10-21 11:46:00 53.071 kg Heart rate 2020-04-24 14:56:00 98 /min [facility] Respiratory rate 2020-04-24 14:56:00 16 /min [facility] Body height 2020-04-24 14:56:00 167.6 cm [facility] Body weight 2020-04-24 14:56:00 52.617 kg [facility] BMI 2020-04-24 14:56:00 18.72 kg/m2 [facility] Heart rate 2022-04-05 07:55:39 70 /min [facility] Respiratory rate 2022-04-05 07:55:39 17 /min [facility] Oxygen saturation in 2022-04-05 07:55:39 99 /min [facility] Arterial blood by Medical Ce nter Pulse oximetry Body temperature 2022-04-05 07:54:47 36.78 Yaneli [facility] Systolic blood 2022-04-05 07:54:45 104 mm[Hg] [facility] Diastolic blood 2022-04-05 07:54:45 62 mm[Hg] [facility] Body height 2022-04-04 11:01:00 165.1 cm [facility] Body weight 2022-04-04 11:01:00 52.98 kg [facility] BMI 2022-04-04 11:01:00 19.44 kg/m2 [facility] Procedures Procedure Date / Time Performing Source Performed Clinician CT CHEST WITH IV CONTRAST 2022-08-18 Maria De JesuscoleTobyRosemary [facility] 11:03:[address] [facility] [address] ABDOMEN/PELVIS WITH & WITHOUT 2022-08-18 [address]ata [address] [facility] IV CONTRAST 11:03:00 [facility] TISSUE EXAM 2022-04-[address] [facility] 13:27:00 M [facility] MASTECTOMY, BILATERAL, SIMPLE 2022-04-[address] [facility] 11:50:00 M [facility] BIOPSY, LYMPH NODE 2022-04-[address] [facility] 11:50:00 M [facility] HEMOGLOBIN 2022-04-[address] [facility] 10:41:00 [facility] BASIC METABOLIC PANEL 2022-04-04 Gaut[facility] Yary [facility] 10:41:00 [facility] CHROMOGRANIN A 2022-02-27 [facility] 11:02:[address] ABDOMEN/PELVIS WITH IV CONTRAST 2022-02-17 Maria De JesuscoleToby kelsey [facility] 12:35:00 [facility] MR PELVIS WITH & WITHOUT IV 2022-01-21 Lamberto Zamudio Luis [facility] CONTRAST 17:39:00 [facility] REPORT OF PROCEDURE - ENDOSCOPY 2022-01-[address] [facility] URL 11:49:18 [facility] REPORT OF PROCEDURE - ENDOSCOPY 2022-01-14 Cardenas, Manreet [facility] URL 11:04:04 [facility] COLONOSCOPY 2022-01-14 Cardenas, Manreet [facility] 10:35:00 [facility] ESOPHAGOGASTRODUODENOSCOPY 2022-01-14 [facility]reet [facility] 10:35:00 [facility] COMPREHENSIVE METABOLIC PANEL 2021-11-12 [facility] 14:57:00 of Medicine CHROMOGRANIN A 2021-11-12 [facility] 14:57:00 of Medicine PHOSPHORUS 2021-11-12 [facility] 14:57:00 of Medicine CBC W/AUTO DIFF WITH PLATELETS 2021-11-12 B [facility] 14:57:00 of Medicine 5 HIAA QUANT,24HR URINE 2021-11-12 [facility] C wilma 14:08:30 of Medicine XR DXA BONE DENSITY STUDY 2021-11-[address] [facility] 08:51:00 [facility] POCT URINALYSIS DIPSTICK 2021-11-11 [facility] 00:00:00 of Medicine CBC W/PLT COUNT & AUTO 2021-10-24 Moufarrij, Radha [facility] DIFFERENTIAL 04:58:00 [facility] MAGNESIUM 2021-10-24 Moufarrij, Radha [facility] 04:58:00 [facility] PHOSPHORUS 2021-10-24 Moufarrij, Radha [facility] 04:58:00 [facility] COMPREHENSIVE METABOLIC PANEL 2021-10-24 Moufarrij, Radha [facility] 04:58:00 [facility] CBC W/PLT COUNT & AUTO 2021-10-24 Moufarrij, Radha [facility] DIFFERENTIAL 04:58:00 [facility] CBC W/PLT COUNT & AUTO 2021-10-23 Moufarrij, Radha [facility] DIFFERENTIAL 04:35:00 [facility] MAGNESIUM 2021-10-23 Moufarrij, Radha [facility] 04:35:00 [facility] PHOSPHORUS 2021-10-23 Moufarrij, Radha [facility] 04:35:00 [facility] COMPREHENSIVE METABOLIC PANEL 2021-10-23 Moufarrij, Rad[facility] 04:35:00 [facility] CBC W/PLT COUNT & AUTO 2021-10-23 Moufarrij, Radha [facility] DIFFERENTIAL 04:35:00 [facility] POCT-GLUCOSE METER 2021-10-[address] [facility] 19:27:00 [facility] TISSUE EXAM 2021-10-22 Hopcande, Jessie [facility] 15:46:00 [facility] CYTOLOGY 2021-10-22 Hoppenot, Jessie [facility] 15:35:00 [facility] ABORH, MANUAL 2021-10-[address] [facility] 15:10:00 [facility] HYSTERECTOMY, TOTAL, 2021-10-[address] [facility] LAPAROSCOPY-ASSISTED 14:30:[address] [facility] [address] EXCISION, CYST, OVARY, 2021-10-[address] [facility] LAPAROSCOPIC, WITH 14:30:00 [facility] Cente r SALPINGO-OOPHORECTOMY LYMPHADENECTOMY, PELVIS 2021-10-[address] [facility] 14:30:00 [facility] HC LAB HIV-1 AG W/HIV-1&2 AB 2021-10-[address] [facility] 12:35:00 [facility] TYPE AND SCREEN 2021-10-[address] [facility] 12:35:00 [facility] POCT-GLUCOSE METER 2021-10-22 [facility]ie [facility] 12:33:00 [facility] Plan of Care Planned Activity Planned Date Details Comments Source Future Scheduled 2032-01-[address] [facility] Test 00:00:00 malignant neoplasm Medical C enter of colon (procedure) [code = 673699730] Future Scheduled 2032-01-[address] [facility] Test 00:00:00 malignant neoplasm Medical C enter of colon (procedure) [code = 726729391] Future Scheduled 2032-01-[address] [facility] Test 00:00:00 malignant neoplasm Medical C enter of colon (procedure) [code = 981740862] Future Scheduled 2032-01-[address] [facility] Test 00:00:00 malignant neoplasm Medical C enter of colon (procedure) [code = 325842830] Future Scheduled 2032-01-[address] [facility] Test 00:00:00 malignant neoplasm Medical C enter of colon (procedure) [code = 801585635] Future Scheduled 2032-01-[address] [facility] Test 00:00:00 malignant neoplasm Medical C enter of colon (procedure) [code = 490227907] Future Scheduled 2023-11-13 DXA SCAN [code = DXA [facility] Test 00:00:00 SCAN] [facility] Future Scheduled 2023-11-13 DXA SCAN [code = DXA [facility] Test 00:00:00 SCAN] [facility] Future Scheduled 2023-11-13 DXA SCAN [code = DXA [facility] Test 00:00:00 SCAN] [facility] Future Scheduled 2023-04-[address] [facility] Test 00:00:00 [facility] (12+) [code = Tobacco Cessation Counseling and Screening (12+)] Future Scheduled 2023-04-[address] [facility] Test 00:00:00 [facility] Scre[facility] (12+) [code = Tobacco Cessation Counseling and Screening (12+)] Future Scheduled 2023-04-[address] [facility] Test 00:00:00 [facility] Screening (12+) [code = Tobacco Cessation Counseling and Screening (12+)] Future Scheduled 2022-08-20 CT CHEST W CONTRAST Expected: [employer] Test 00:00:00 [code = 14183-9] 08/20/2022 of Medicine (Approximate), Expires: 06/19/2023 Future Scheduled 2022-08-20 CT ABDOMEN PELVIS W Expected: [employer] Test 00:00:00 WO CONTRAST [code = 08/20/2022 of Medic ine 14312-5] (Approximate), Expires: 06/19/2023 Future Scheduled 2022-07-[address] [facility] Test 00:00:00 (12+) [code = [facility] DEPRESSION SCREENING (12+)] Future Scheduled 2022-07-06 FALLS RISK SCREENING [facility] Test 00:00:00 [code = FALLS RISK Medical C enter SCREENING] Future Scheduled 2022-06-21 COVID-19 Vaccine [facility] Test 09:04:27 (#1) [code = of Medicine COVID-19 Vaccine (#1)] Future Scheduled 2022-06-21 TETANUS SHOT (ADULT) [facility] Test 09:04:27 [code = TETANUS SHOT of Medi cine (ADULT)] Future Scheduled 2022-06-21 Hepatitis C [facility] ege Test 09:04:27 screening of Medicine (procedure) [code = 644599031] Future Scheduled 2022-06-21 ZOSTER VACCINE (1 of [facility] Test 09:04:27 2) [code = ZOSTER of Medicin e VACCINE (1 of 2)] Future Scheduled 2022-06-21 Pneumococcal 65+ (1 [employer] Test 09:04:27 - PCV) [code = of Medicine Pneumococcal 65+ (1 - PCV)] Future Scheduled 2022-06-21 MEDICARE AWV [facility] Test 09:04:27 (Initial) [code = of Medicin e MEDICARE AWV (Initial)] Future Scheduled 2022-06-21 FLU VACCINE > 6 [facility] Test 09:04:27 MONTHS [code = FLU of Medici ne VACCINE > 6 MONTHS] Future Scheduled 2022-06-21 FALL SCREEN [code = [employer] Test 09:04:27 FALL SCREEN] of Medicine Future Scheduled 2022-06-21 Screening for [facility] Test 09:04:27 malignant neoplasm of Medici ne of colon (procedure) [code = 736528563] Future Scheduled 2022-06-19 COVID-19 Vaccine [facility] Test 14:15:06 (#1) [code = of Medicine COVID-19 Vaccine (#1)] Future Scheduled 2022-06-19 TETANUS SHOT (ADULT) [employer] [facility] Test 14:15:06 [code = TETANUS SHOT of Medi cine (ADULT)] Future Scheduled 2022-06-19 Hepatitis C [facility] Test 14:15:06 screening of Medicine (procedure) [code = 210250511] Future Scheduled 2022-06-19 ZOSTER VACCINE (1 of [employer] Test 14:15:06 2) [code = ZOSTER of Medicin e VACCINE (1 of 2)] Future Scheduled 2022-06-19 Pneumococcal 65+ (1 [employer] Test 14:15:06 - PCV) [code = of Medicine Pneumococcal 65+ (1 - PCV)] Future Scheduled 2022-06-19 MEDICARE AWV [facility] Test 14:15:06 (Initial) [code = of Medicin e MEDICARE AWV (Initial)] Future Scheduled 2022-06-19 FLU VACCINE > 6 [facility] Test 14:15:06 MONTHS [code = FLU of Medici ne VACCINE > 6 MONTHS] Future Scheduled 2022-06-19 FALL SCREEN [code = [employer] Test 14:15:06 FALL SCREEN] of Medicine Future Scheduled 2022-06-19 Screening for [facility] Test 14:15:06 malignant neoplasm of Medici ne of colon (procedure) [code = 233304234] Future Scheduled 2022-04-23 COVID-19 Vaccine [facility] Test 07:56:47 (#1) [code = of Medicine COVID-19 Vaccine (#1)] Future Scheduled 2022-04-23 TETANUS SHOT (ADULT) [employer] Test 07:56:47 [code = TETANUS SHOT of Medi cine (ADULT)] Future Scheduled 2022-04-23 Hepatitis C [facility] Test 07:56:47 screening of Medicine (procedure) [code = 975460911] Future Scheduled 2022-04-23 ZOSTER VACCINE (1 of [employer] Test 07:56:47 2) [code = ZOSTER of Medicin e VACCINE (1 of 2)] Future Scheduled 2022-04-23 Pneumococcal 65+ (1 [employer] Test 07:56:47 - PCV) [code = of Medicine Pneumococcal 65+ (1 - PCV)] Future Scheduled 2022-04-23 MEDICARE AWV [facility] Test 07:56:47 (Initial) [code = of Medicin e MEDICARE AWV (Initial)] Future Scheduled 2022-04-23 FLU VACCINE > 6 [facility] Test 07:56:47 MONTHS [code = FLU of Medici ne VACCINE > 6 MONTHS] Future Scheduled 2022-04-23 Screening for [facility] Test 07:56:47 malignant neoplasm of Medici ne of breast (procedure) [code = 884938516] Future Scheduled 2022-04-23 FALL SCREEN [code = [employer] Test 07:56:47 FALL SCREEN] of Medicine Future Scheduled 2022-04-23 Screening for [facility] Test 07:56:47 malignant neoplasm of Medici ne of colon (procedure) [code = 178801306] Future Scheduled 2022-04-14 COVID-19 Vaccine [facility] Test 12:28:18 (#1) [code = of Medicine COVID-19 Vaccine (#1)] Future Scheduled 2022-04-14 TETANUS SHOT (ADULT) [employer] Test 12:28:18 [code = TETANUS SHOT of Medi cine (ADULT)] Future Scheduled 2022-04-14 Hepatitis C [facility] Test 12:28:18 screening of Medicine (procedure) [code = 254666086] Future Scheduled 2022-04-14 ZOSTER VACCINE (1 of [employer] Test 12:28:18 2) [code = ZOSTER of Medicin e VACCINE (1 of 2)] Future Scheduled 2022-04-14 Pneumococcal 65+ (1 [employer] Test 12:28:18 - PCV) [code = of Medicine Pneumococcal 65+ (1 - PCV)] Future Scheduled 2022-04-14 MEDICARE AWV [facility] Test 12:28:18 (Initial) [code = of Medicin e MEDICARE AWV (Initial)] Future Scheduled 2022-04-14 FLU VACCINE > 6 [facility] Test 12:28:18 MONTHS [code = FLU of Medici ne VACCINE > 6 MONTHS] Future Scheduled 2022-04-14 Screening for [facility] Test 12:28:18 malignant neoplasm of Medici ne of breast (procedure) [code = 989230052] Future Scheduled 2022-04-14 FALL SCREEN [code = [employer] Test 12:28:18 FALL SCREEN] of Medicine Future Scheduled 2022-04-14 Screening for [facility] Test 12:28:18 malignant neoplasm of Medici ne of colon (procedure) [code = 684265363] Future Scheduled 2022-03-[address] [facility] Test 00:00:00 (#1) [code = Medical Center INFLUENZA VACCINE (#1)] Future Scheduled 2022-03-[address] [facility] Test 00:00:00 (#1) [code = Medical Center INFLUENZA VACCINE (#1)] Future Scheduled 2022-03-[address] [facility] Test 00:00:00 (#1) [code = Medical Center INFLUENZA VACCINE (#1)] Future Scheduled 2022-03-03 COVID-19 Vaccine [facility] Test 06:37:24 (#1) [code = of Medicine COVID-19 Vaccine (#1)] Future Scheduled 2022-03-03 TETANUS SHOT (ADULT) [facility] Test 06:37:24 [code = TETANUS SHOT of Medi cine (ADULT)] Future Scheduled 2022-03-03 Hepatitis C [facility] Test 06:37:24 screening of Medicine (procedure) [code = 359336070] Future Scheduled 2022-03-03 ZOSTER VACCINE (1 of [employer] Test 06:37:24 2) [code = ZOSTER of Medicin e VACCINE (1 of 2)] Future Scheduled 2022-03-03 Pneumococcal 65+ (1 [employer] Test 06:37:24 - PCV) [code = of Medicine Pneumococcal 65+ (1 - PCV)] Future Scheduled 2022-03-03 MEDICARE AWV [facility] Test 06:37:24 (Initial) [code = of Medicin e MEDICARE AWV (Initial)] Future Scheduled 2022-03-03 FLU VACCINE > 6 [facility] Test 06:37:24 MONTHS [code = FLU of Medici ne VACCINE > 6 MONTHS] Future Scheduled 2022-03-03 Screening for [facility] Test 06:37:24 malignant neoplasm of Medici ne of breast (procedure) [code = 162629804] Future Scheduled 2022-03-03 FALL SCREEN [code = [employer] Test 06:37:24 FALL SCREEN] of Medicine Future Scheduled 2022-03-03 Screening for [facility] Test 06:37:24 malignant neoplasm of Medici ne of colon (procedure) [code = 598697177] Future Scheduled 2022-02-28 COVID-19 Vaccine [facility] Test 10:59:26 (#1) [code = of Medicine COVID-19 Vaccine (#1)] Future Scheduled 2022-02-28 TETANUS SHOT (ADULT) [facility] Test 10:59:26 [code = TETANUS SHOT of Medi cine (ADULT)] Future Scheduled 2022-02-28 Hepatitis C [facility] Test 10:59:26 screening of Medicine (procedure) [code = 256407670] Future Scheduled 2022-02-28 ZOSTER VACCINE (1 of [employer] Test 10:59:26 2) [code = ZOSTER of Medicin e VACCINE (1 of 2)] Future Scheduled 2022-02-28 Pneumococcal 65+ (1 [employer] Test 10:59:26 - PCV) [code = of Medicine Pneumococcal 65+ (1 - PCV)] Future Scheduled 2022-02-28 MEDICARE AWV [facility] Test 10:59:26 (Initial) [code = of Medicin e MEDICARE AWV (Initial)] Future Scheduled 2022-02-28 FLU VACCINE > 6 [facility] Test 10:59:26 MONTHS [code = FLU of Medici ne VACCINE > 6 MONTHS] Future Scheduled 2022-02-28 Screening for [facility] Test 10:59:26 malignant neoplasm of Medici ne of breast (procedure) [code = 101153185] Future Scheduled 2022-02-28 FALL SCREEN [code = [employer] Test 10:59:26 FALL SCREEN] of Medicine Future Scheduled 2022-02-28 Screening for [facility] Test 10:59:26 malignant neoplasm of Medici ne of colon (procedure) [code = 159344593] Future Scheduled 2022-02-27 COVID-19 Vaccine [facility] Test 17:16:54 (#1) [code = of Medicine COVID-19 Vaccine (#1)] Future Scheduled 2022-02-27 TETANUS SHOT (ADULT) [employer] Test 17:16:54 [code = TETANUS SHOT of Medi cine (ADULT)] Future Scheduled 2022-02-27 Hepatitis C [facility] Test 17:16:54 screening of Medicine (procedure) [code = 594189848] Future Scheduled 2022-02-27 ZOSTER VACCINE (1 of [employer] Test 17:16:54 2) [code = ZOSTER of Medicin e VACCINE (1 of 2)] Future Scheduled 2022-02-27 Pneumococcal 65+ (1 [employer] Test 17:16:54 - PCV) [code = of Medicine Pneumococcal 65+ (1 - PCV)] Future Scheduled 2022-02-27 MEDICARE AWV [facility] Test 17:16:54 (Initial) [code = of Medicin e MEDICARE AWV (Initial)] Future Scheduled 2022-02-27 FLU VACCINE > 6 [facility] Test 17:16:54 MONTHS [code = FLU of Medici ne VACCINE > 6 MONTHS] Future Scheduled 2022-02-27 Screening for [facility] Test 17:16:54 malignant neoplasm of Medici ne of breast (procedure) [code = 253250457] Future Scheduled 2022-02-27 FALL SCREEN [code = [employer] Test 17:16:54 FALL SCREEN] of Medicine Future Scheduled 2022-02-27 Screening for [facility] Test 17:16:54 malignant neoplasm of Medici ne of colon (procedure) [code = 675971482] Future Scheduled 2022-02-27 CHROMOGRANIN A [code Ordered: [facility] Test 11:02:28 = NOCPT] 02/27/2022 of Medicine Future Scheduled 2022-02-14 COVID-19 Vaccine [facility] Test 12:32:51 (#1) [code = of Medicine COVID-19 Vaccine (#1)] Future Scheduled 2022-02-14 TETANUS SHOT (ADULT) [facility] Test 12:32:51 [code = TETANUS SHOT of Medi cine (ADULT)] Future Scheduled 2022-02-14 Hepatitis C [facility] Test 12:32:51 screening of Medicine (procedure) [code = 761010919] Future Scheduled 2022-02-14 ZOSTER VACCINE (1 of [facility] Test 12:32:51 2) [code = ZOSTER of Medicin e VACCINE (1 of 2)] Future Scheduled 2022-02-14 Pneumococcal 65+ (1 [employer] Test 12:32:51 - PCV) [code = of Medicine Pneumococcal 65+ (1 - PCV)] Future Scheduled 2022-02-14 MEDICARE AWV [facility] Test 12:32:51 (Initial) [code = of Medicin e MEDICARE AWV (Initial)] Future Scheduled 2022-02-14 FLU VACCINE > 6 [facility] Test 12:32:51 MONTHS [code = FLU of Medici ne VACCINE > 6 MONTHS] Future Scheduled 2022-02-14 FALL SCREEN [code = [employer] Test 12:32:51 FALL SCREEN] of Medicine Future Scheduled 2022-02-14 Screening for [facility] Test 12:32:51 malignant neoplasm of Medici ne of breast (procedure) [code = 761711674] Future Scheduled 2022-02-14 Screening for [facility] Test 12:32:51 malignant neoplasm of Medici ne of colon (procedure) [code = 772701909] Future Scheduled 2022-01-28 COVID-19 Vaccine [facility] Test 13:15:19 (#1) [code = of Medicine COVID-19 Vaccine (#1)] Future Scheduled 2022-01-28 TETANUS SHOT (ADULT) [facility] Test 13:15:19 [code = TETANUS SHOT of Medi cine (ADULT)] Future Scheduled 2022-01-28 BMI FOLLOW UP PLAN [employer] Test 13:15:19 [code = BMI FOLLOW of Medici ne UP PLAN] Future Scheduled 2022-01-28 Hepatitis C [facility] Test 13:15:19 screening of Medicine (procedure) [code = 956571319] Future Scheduled 2022-01-28 ZOSTER VACCINE (1 of [employer] Test 13:15:19 2) [code = ZOSTER of Medicin e VACCINE (1 of 2)] Future Scheduled 2022-01-28 Pneumococcal 65+ (1 [employer] Test 13:15:19 - PCV) [code = of Medicine Pneumococcal 65+ (1 - PCV)] Future Scheduled 2022-01-28 MEDICARE AWV [facility] Test 13:15:19 (Initial) [code = of Medicin e MEDICARE AWV (Initial)] Future Scheduled 2022-01-28 FLU VACCINE > 6 [facility] Test 13:15:19 MONTHS [code = FLU of Medici ne VACCINE > 6 MONTHS] Future Scheduled 2022-01-28 FALL SCREEN [code = [employer] Test 13:15:19 FALL SCREEN] of Medicine Future Scheduled 2022-01-28 Screening for [facility] Test 13:15:19 malignant neoplasm of Medici ne of breast (procedure) [code = 830925052] Future Scheduled 2022-01-28 Screening for [facility] Test 13:15:19 malignant neoplasm of Medici ne of colon (procedure) [code = 736787472] Future Scheduled 2022-01-27 COVID-19 Vaccine [facility] Test 15:30:59 (#1) [code = of Medicine COVID-19 Vaccine (#1)] Future Scheduled 2022-01-27 TETANUS SHOT (ADULT) [facility] Test 15:30:59 [code = TETANUS SHOT of Medi cine (ADULT)] Future Scheduled 2022-01-27 BMI FOLLOW UP PLAN [facility] Test 15:30:59 [code = BMI FOLLOW of Medici ne UP PLAN] Future Scheduled 2022-01-27 Hepatitis C [facility] Test 15:30:59 screening of Medicine (procedure) [code = 748707905] Future Scheduled 2022-01-27 ZOSTER VACCINE (1 of [employer] Test 15:30:59 2) [code = ZOSTER of Medicin e VACCINE (1 of 2)] Future Scheduled 2022-01-27 Pneumococcal 65+ (1 [employer] Test 15:30:59 - PCV) [code = of Medicine Pneumococcal 65+ (1 - PCV)] Future Scheduled 2022-01-27 MEDICARE AWV [facility] Test 15:30:59 (Initial) [code = of Medicin e MEDICARE AWV (Initial)] Future Scheduled 2022-01-27 FLU VACCINE > 6 [facility] Test 15:30:59 MONTHS [code = FLU of Medici ne VACCINE > 6 MONTHS] Future Scheduled 2022-01-27 FALL SCREEN [code = [employer] Test 15:30:59 FALL SCREEN] of Medicine Future Scheduled 2022-01-27 Screening for [facility] Test 15:30:59 malignant neoplasm of Medici ne of breast (procedure) [code = 014300532] Future Scheduled 2022-01-27 Screening for [facility] Test 15:30:59 malignant neoplasm of Medici ne of colon (procedure) [code = 355639696] Future Scheduled 2021-12-19 COVID-19 Vaccine [facility] Test 10:34:55 (#1) [code = of Medicine COVID-19 Vaccine (#1)] Future Scheduled 2021-12-19 TETANUS SHOT (ADULT) [employer] [facility] [employer] Test 10:34:55 [code = TETANUS SHOT of Medi cine (ADULT)] Future Scheduled 2021-12-19 Hepatitis C [facility] Test 10:34:55 screening of Medicine (procedure) [code = 702237201] Future Scheduled 2021-12-19 ZOSTER VACCINE (1 of [employer] Test 10:34:55 2) [code = ZOSTER of Medicin e VACCINE (1 of 2)] Future Scheduled 2021-12-19 Pneumococcal 65+ (1 [employer] Test 10:34:55 - PCV) [code = of Medicine Pneumococcal 65+ (1 - PCV)] Future Scheduled 2021-12-19 MEDICARE AWV [facility] Test 10:34:55 (Initial) [code = of Medicin e MEDICARE AWV (Initial)] Future Scheduled 2021-12-19 FLU VACCINE > 6 [facility] Test 10:34:55 MONTHS [code = FLU of Medici ne VACCINE > 6 MONTHS] Future Scheduled 2021-12-19 FALL SCREEN [code = [employer] Test 10:34:55 FALL SCREEN] of Medicine Future Scheduled 2021-12-19 Screening for [facility] Test 10:34:55 malignant neoplasm of Medici ne of breast (procedure) [code = 179849331] Future Scheduled 2021-12-19 Screening for [facility] Test 10:34:55 malignant neoplasm of Medici ne of colon (procedure) [code = 587393703] Future Scheduled 2021-12-04 COVID-19 Vaccine [facility] Test 14:44:00 (#1) [code = of Medicine COVID-19 Vaccine (#1)] Future Scheduled 2021-12-04 TETANUS SHOT (ADULT) [employer] Test 14:44:00 [code = TETANUS SHOT of Medi cine (ADULT)] Future Scheduled 2021-12-04 Hepatitis C [facility] Test 14:44:00 screening of Medicine (procedure) [code = 435973232] Future Scheduled 2021-12-04 ZOSTER VACCINE (1 of [employer] Test 14:44:00 2) [code = ZOSTER of Medicin e VACCINE (1 of 2)] Future Scheduled 2021-12-04 Pneumococcal 65+ (1 [employer] Test 14:44:00 - PCV) [code = of Medicine Pneumococcal 65+ (1 - PCV)] Future Scheduled 2021-12-04 MEDICARE AWV [facility] Test 14:44:00 (Initial) [code = of Medicin e MEDICARE AWV (Initial)] Future Scheduled 2021-12-04 FLU VACCINE > 6 [facility] Test 14:44:00 MONTHS [code = FLU of Medici ne VACCINE > 6 MONTHS] Future Scheduled 2021-12-04 FALL SCREEN [code = [employer] Test 14:44:00 FALL SCREEN] of Medicine Future Scheduled 2021-12-04 Screening for [facility] Test 14:44:00 malignant neoplasm of Medici ne of breast (procedure) [code = 372834914] Future Scheduled 2021-12-04 Screening for [facility] Test 14:44:00 malignant neoplasm of Medici ne of colon (procedure) [code = 221173010] Future Scheduled 2021-12-03 COLONOSCOPY W MAC GI 1 Occurrences [employer] Test 10:07:10 DEPT [code = starting of Medicine 23190530] 12/03/2021 until 06/04/2022 Future Scheduled 2021-12-03 MRI ENTEROGRAPHY 1 Occurrences [facility] [employer] Test 09:57:23 (SMALL BOWEL starting of Medicine EVALUATION) [code = 12/03/2021 until 99013] 12/03/2022 Future Scheduled 2021-11-28 COVID-19 Vaccine [facility] [employer] Test 12:37:28 (#1) [code = of Medicine COVID-19 Vaccine (#1)] Future Scheduled 2021-11-28 TETANUS SHOT (ADULT) [employer] [facility] 12:37:28 [code = TETANUS SHOT of Medi cine (ADULT)] Future Scheduled 2021-11-28 Hepatitis C [facility] Jaime [facility] Test 12:37:28 screening of Medicine (procedure) [code = 326455372] Future Scheduled 2021-11-28 ZOSTER VACCINE (1 of [employer] Test 12:37:28 2) [code = ZOSTER of Medicin e VACCINE (1 of 2)] Future Scheduled 2021-11-28 Pneumococcal 65+ (1 [employer] [facility] 12:37:28 - PCV) [code = of Medicine Pneumococcal 65+ (1 - PCV)] Future Scheduled 2021-11-28 MEDICARE AWV [facility] [employer] Test 12:37:28 (Initial) [code = of Medicin e MEDICARE AWV (Initial)] Future Scheduled 2021-11-28 FLU VACCINE > 6 [facility] [employer] Test 12:37:28 MONTHS [code = FLU of Medici ne VACCINE > 6 MONTHS] Future Scheduled 2021-11-28 FALL SCREEN [code = [employer] [facility] 12:37:28 FALL SCREEN] of Medicine Future Scheduled 2021-11-28 Screening for Nolberto [employer] Test 12:37:28 malignant neoplasm of Medici ne of breast (procedure) [code = 319503904] Future Scheduled 2021-11-28 Screening for [facility] [employer] Test 12:37:28 malignant neoplasm of Medici ne of colon (procedure) [code = 140474040] Future Scheduled 2021-11-12 COVID-19 Vaccine (1) [employer] [facility] 16:07:06 [code = COVID-19 of Medicine Vaccine (1)] Future Scheduled 2021-11-12 TETANUS SHOT (ADULT) [employer] [facility] 16:07:06 [code = TETANUS SHOT of Medi cine (ADULT)] Future Scheduled 2021-11-12 Hepatitis C [facility] [employer] Test 16:07:06 screening of Medicine (procedure) [code = 144387365] Future Scheduled 2021-11-12 ZOSTER VACCINE (1 of [facility] Test 16:07:06 2) [code = ZOSTER of Medicin e VACCINE (1 of 2)] Future Scheduled 2021-11-12 Pneumococcal 65+ (1 [employer] [facility] 16:07:06 of 1 - PPSV23) [code of Medi cine = Pneumococcal 65+ (1 of 1 - PPSV23)] Future Scheduled 2021-11-12 MEDICARE AWV [facility] [employer] Test 16:07:06 (Initial) [code = of Medicin e MEDICARE AWV (Initial)] Future Scheduled 2021-11-12 FLU VACCINE > 6 [facility] [employer] Test 16:07:06 MONTHS [code = FLU of Medici ne VACCINE > 6 MONTHS] Future Scheduled 2021-11-12 FALL SCREEN [code = [employer] [facility] 16:07:06 FALL SCREEN] of Medicine Future Scheduled 2021-11-12 Screening for [facility] Test 16:07:06 malignant neoplasm of Medici ne of breast (procedure) [code = 175331082] Future Scheduled 2021-11-12 Screening for [facility] Test 16:07:06 malignant neoplasm of Medici ne of colon (procedure) [code = 093368226] Future Scheduled 2021-11-12 PHOSPHORUS [code = Ordered: [facility] r [employer] Test 14:44:33 2777-1] 11/12/2021 of Medicine Future Scheduled 2021-11-12 CT PET SKULL-BASE 1 Occurrences [facility] [employer] Test 14:10:07 MID-THIGH (82854) starting of Medicin e [code = 38723] 11/12/2021 until 11/12/2022 Future Scheduled 2021-11-12 COMPREHENSIVE Ordered: [facility] Test 14:08:30 METABOLIC PANEL 11/12/2021 of Medicine [code = 60236-5] Future Scheduled 2021-11-12 5 HIAA QUANT,24HR Ordered: [facility] [employer] Test 14:08:30 URINE [code = 35427] 11/12/2021 of Medi cine Future Scheduled 2021-11-12 CHROMOGRANIN A [code Ordered: [employer] [facility] 14:08:30 = NOCPT] 11/12/2021 of Medicine Future Scheduled 2021-11-11 COVID-19 Vaccine (1) [employer] [facility] 09:24:09 [code = COVID-19 of Medicine Vaccine (1)] Future Scheduled 2021-11-11 TETANUS SHOT (ADULT) [employer] [facility] 09:24:09 [code = TETANUS SHOT of Medi cine (ADULT)] Future Scheduled 2021-11-11 Hepatitis C N[facility]to [facility] Test 09:24:09 screening of Medicine (procedure) [code = 043273577] Future Scheduled 2021-11-11 ZOSTER VACCINE (1 of [employer] [facility] 09:24:09 2) [code = ZOSTER of Medicin e VACCINE (1 of 2)] Future Scheduled 2021-11-11 FALL SCREEN [code = [employer] [facility] 09:24:09 FALL SCREEN] of Medicine Future Scheduled 2021-11-11 Pneumococcal 65+ (1 [employer] [facility] 09:24:09 of 1 - PPSV23) [code of Medi cine = Pneumococcal 65+ (1 of 1 - PPSV23)] Future Scheduled 2021-11-11 MEDICARE AWV [facility] Test 09:24:09 (Initial) [code = of Medicin e MEDICARE AWV (Initial)] Future Scheduled 2021-11-11 Screening for [facility] [employer] Test 09:24:09 malignant neoplasm of Medici ne of breast (procedure) [code = 034787017] Future Scheduled 2021-11-11 FLU VACCINE > 6 [facility] [employer] Test 09:24:09 MONTHS [code = FLU of Medici ne VACCINE > 6 MONTHS] Future Scheduled 2021-11-11 Screening for [facility] [employer] Test 09:24:09 malignant neoplasm of Medici ne of colon (procedure) [code = 848607066] Future Scheduled 2021-07-[address] [facility] Test 00:00:00 (12+) [code = Medical Center DEPRESSION SCREENING (12+)] Future Scheduled 2021-07-06 FALLS RISK SCREENING [facility] Test 00:00:00 [code = FALLS RISK Medical C enter SCREENING] Future Scheduled 2021-07-[address] [facility] Test 00:00:00 (12+) [code = Medical Center DEPRESSION SCREENING (12+)] Future Scheduled 2021-07-06 FALLS RISK SCREENING [facility] Test 00:00:00 [code = FALLS RISK Medical C enter SCREENING] Future Scheduled 2012-12-[address] [facility] Test 00:00:00 WELLNESS (YEAR 2 or Medical Center FIRST YEAR if no IPPE) [code = MEDICARE ANNUAL WELLNESS (YEAR 2 or FIRST YEAR if no IPPE)] Future Scheduled 2012-12-[address] [facility] Test 00:00:00 WELLNESS (YEAR 2 or Medical Center FIRST YEAR if no IPPE) [code = MEDICARE ANNUAL WELLNESS (YEAR 2 or FIRST YEAR if no IPPE)] Future Scheduled 2011-12-26 PNEUMOCOCCAL 65+ YRS [facility] Test 00:00:00 (1 - PCV) [code = Medical Ce nter PNEUMOCOCCAL 65+ YRS (1 - PCV)] Future Scheduled 2011-12-26 PNEUMOCOCCAL 65+ YRS [facility] Test 00:00:00 (1 - PCV) [code = Medical Ce nter PNEUMOCOCCAL 65+ YRS (1 - PCV)] Future Scheduled 2011-12-26 PNEUMOCOCCAL 65+ YRS [facility] Test 00:00:00 (1 - PCV) [code = Medical Ce nter PNEUMOCOCCAL 65+ YRS (1 - PCV)] Future Scheduled 1996 SHINGLES VACCINES ([address] [facility] Test 00:00:00 of 2) [code = Medical Center SHINGLES VACCINES (1 of 2)] Future Scheduled 1996 SHINGLES VACCINES ([address] [facility] Test 00:00:00 of 2) [code = Medical Center SHINGLES VACCINES (1 of 2)] Future Scheduled 1996 SHINGLES VACCINES ([address] [facility] Test 00:00:00 of 2) [code = Medical Center SHINGLES VACCINES (1 of 2)] Future Scheduled 1965 DTAP/TDAP/TD [facility] 00:[facility] VACCINES (1 - Tdap) Medical Center [code = DTAP/TDAP/TD VACCINES (1 - Tdap)] Future Scheduled 1965 DTAP/TDAP/TD [facility] Test 00:00:00 VACCINES (1 - Tdap) Medical Center [code = DTAP/TDAP/TD VACCINES (1 - Tdap)] Future Scheduled 1965 DTAP/TDAP/TD [facility] Test 00:00:00 VACCINES (1 - Tdap) Medical Center [code = DTAP/TDAP/TD VACCINES (1 - Tdap)] Future Scheduled [address] [facility] Test 00:00:00 SCREENING [code = Medical Ce nter HEPATITIS C SCREENING] Future Scheduled [address] [facility] Test 00:00:00 SCREENING [code = Medical Ce nter HEPATITIS C SCREENING] Future Scheduled [address] [facility] Test 00:00:00 SCREENING [code = Medical Ce nter HEPATITIS C SCREENING] Future Scheduled 1947-06-26 COVID-[address] [facility] Test 00:00:00 (#1) [code = [facility] COVID-19 VACCINE (#1)] Future Scheduled 1947-06-26 COVID-[address] [facility] Test 00:00:00 (#1) [code = [facility] COVID-19 VACCINE (#1)] Future Scheduled 1947-06-26 COVID-[address] [facility] Test 00:00:00 (#1) [code = [facility] COVID-19 VACCINE (#1)] Future Scheduled [address] [facility] Test 00:00:00 (combo) [code = CT Medical C enter Colonography (combo)] Future Scheduled [address] [facility] Test 00:00:00 malignant neoplasm Medical C enter of colon (procedure) [code = 456953781] Future Scheduled [address] [facility] Test 00:00:00 malignant neoplasm Medical C enter of colon (procedure) [code = 744166612] Future Scheduled 1946 Sigmoidoscopy [code [facility] Test 00:00:00 = Sigmoidoscopy] Medical [address] [facility] Future Scheduled [address] [facility] Test 00:00:00 (combo) [code = CT Medical C enter Colonography (combo)] Future Scheduled [address] [facility] [facility] Test 00:00:00 malignant neoplasm Medical C enter of colon (procedure) [code = 722262429] Future Scheduled [address] [facility] [facility] Test 00:00:00 malignant neoplasm Medical C enter of colon (procedure) [code = 810677765] Future Scheduled 1946 Sigmoidoscopy [code [facility] Test 00:00:00 = Sigmoidoscopy] Medical [address] Future Scheduled [address] [facility] Test 00:00:00 (combo) [code = CT Medical C enter Colonography (combo)] Future Scheduled [address] [facility] Test 00:00:00 malignant neoplasm Medical C enter of colon (procedure) [code = 912429997] Future Scheduled [address] [facility] Test 00:00:00 malignant neoplasm Medical C enter of colon (procedure) [code = 964132291] Future Scheduled 1946 Sigmoidoscopy [code [facility] Test 00:00:00 = Sigmoidoscopy] Medical [address] [facility] Future Scheduled CBC W/O DIFF W PLT Ordered: [employer] [facility] [code = 6690-2] 04/24/2020 of Medicine Future Scheduled COMPREHENSIVE Ordered: [facility] Test METABOLIC PANEL 04/24/2020 of Medicine [code = 38833-3] Future Scheduled TSH [code = 96117-0] Ordered: [employer] 04/24/2020 of Medicine Future Scheduled TETANUS SHOT (ADULT) [employer] [facility] [code = TETANUS SHOT of Medi cine (ADULT)] Future Scheduled HEPATITIS C [facility] [employer] Test SCREENING [code = of Medicin e HEPATITIS C SCREENING] Future Scheduled ZOSTER VACCINE (1 of [employer] Test 2) [code = ZOSTER of Medicin e VACCINE (1 of 2)] Future Scheduled FALL SCREEN [code = [facility] or [facility] Test FALL SCREEN] of Medicine Future Scheduled PNEUMOVAX >=65 [facility] Test (PPSV23) [code = of Medicine PNEUMOVAX >=65 (PPSV23)] Future Scheduled MEDICARE AWV [facility] [employer] Test (Initial) [code = of Medicin e MEDICARE AWV (Initial)] Future Scheduled MAMMOGRAM ANNUAL [facility] Test [code = MAMMOGRAM of Medicin e ANNUAL] Future Scheduled FLU VACCINE > 6 [facility] C [facility]lege Test MONTHS [code = FLU of Medici ne VACCINE > 6 MONTHS] Future Scheduled COLON CANCER [facility] [employer] Test SCREENING: of Medicine COLONOSCOPY [code = COLON CANCER SCREENING: COLONOSCOPY] Future Scheduled TETANUS SHOT (ADULT) [facility] Test [code = TETANUS SHOT of Medi cine (ADULT)] Future Scheduled HEPATITIS C [facility] [employer] Test SCREENING [code = of Medicin e HEPATITIS C SCREENING] Future Scheduled ZOSTER VACCINE (1 of [facility] Test 2) [code = ZOSTER of Medicin e VACCINE (1 of 2)] Future Scheduled FALL SCREEN [code = [facility] Test FALL SCREEN] of Medicine Future Scheduled PNEUMOVAX >=65 [facility] [employer] Test (PPSV23) [code = of Medicine PNEUMOVAX >=65 (PPSV23)] Future Scheduled MEDICARE AWV [facility] [employer] Test (Initial) [code = of Medicin e MEDICARE AWV (Initial)] Future Scheduled MAMMOGRAM ANNUAL [facility] Test [code = MAMMOGRAM of Medicin e ANNUAL] Future Scheduled FLU VACCINE > 6 [facility] C ollege Test MONTHS [code = FLU of Medici ne VACCINE > 6 MONTHS] Future Scheduled COLON CANCER [facility] [employer] Test SCREENING: of Medicine COLONOSCOPY [code = COLON CANCER SCREENING: COLONOSCOPY] Encounters Start End Encounter Admission Attending Care Care Encounter Source Date/Time Date/Time Type Type Clinicians Facility Department ID 2021-12-03 Outpatient LAMBERTO ANTOINE [facility] Surgery [id number] [facility] 12:24:58 2022-09-18 2022-09-18 Outpatient JANUARYQUAN AGUSTIN [facility] [id number] [facility] 00:00:00 00:00:00 ROSEMARY underwood of Medicin e 2022-08-18 2022[facility]08-[facility] [id number] [facility] 10:11:43 23:59:00 Encounter 1, [facility] [address] [facility] 2022-08-18 2022-08-18 Outpatient [facility] [id number] SLE 10:11:43 23:59:00 ROSEMARY 2022-08-18 2022-08-18 [facility] [id number] [facility] 10:00:50 10:10:00 Encounter 1, [facility] [address] Room [facility] 2022-08-18 2022-08-18 Outpatient VASU [facility]AMBERS [facility] [id number] [facility] 10:00:50 10:10:00 ROSEMARY 2022-06-19 2022-06-19 Office NATALIE [facility] [id number] [facility] 09:35:31 13:21:38 Visit JESSIE Landryr 350.1.13.21 Co llege 0.2.7.2.686 of [id number] Medi philippe 520 e 2022-06-19 2022-06-19 Office Reyes [facility] [id number] [facility] 10:40:00 11:32:20 Visit Rosemary [place] 350.1.13.21 Co llege 0.2.7.2.686 of [id number] Medi philippe 504 e 2022-06-19 2022-06-19 [facility] Reyes [facility] [id number] [facility] St 00:00:00 00:00:00 Only [facility] 2022-04-22 2022-04-22 Office Kodi [facility] [id number] [facility] 08:30:00 10:07:33 Visit Duglas [place] 350.1.13.21 C ollege Rafy 0.2.7.2.686 of [id number] Medi philippe 510 e 2022-04-14 2022-04-14 Office NANCY [facility] [id number] [facility] 11:14:24 12:22:22 Visit JOSE DAVID Miroslava 350.1.13.21 Co llege 0.2.7.2.686 of [id number] Medi philippe 510 e 2022-04-04 2022-04-05 [facility] Kodi [facility] [id number] 09:49:00 11:00:00 Encounter Duglas Zuniga [facility] 2022-04-04 2022-04-05 Outpatient VASU MARIEE [facility] Surgery [id number] SLE 09:49:00 11:00:00 [facility] 2022-04-04 2022-04-05 Hospital VASU Mariee [facility] [id number] 09:49:00 11:00:00 Encounter [facility] 2022-04-04 2022-04-[address] [facility] [id number] [facility] 09:49:00 23:59:00 Nyasia underwood of Medicin e 2022-04-04 2022-04-04 Anesthesia [facility] [id number] 12:05:00 14:57:00 [facility] 2022-04-04 2022-04-04 Anesthesia [facility] [id number] 12:05:00 14:57:00 Event [facility] 2022-04-04 2022-04-04 [facility] [id number] 10:35:00 14:25:00 [facility] 2022-04-04 2022-04-04 Surgery Kodi [facility] [id number] 10:35:00 14:25:00 [facility] 2022-03-13 2022-03-[address] [facility] [id number] SLE 14:14:11 23:59:00 2022-03-13 2022-03-13 [facility] [id number] 13:45:00 23:59:00 Encounter [facility] 2022-03-13 2022-03-13 [facility] [id number] 13:45:00 23:59:00 Encounter [facility] 2022-03-13 2022-03-13 Travel [facility] [id number] [facility] 00:00:00 00:00:00 [facility] 2022-03-13 2022-03-13 Travel [facility] [id number] [facility] 00:00:00 00:00:00 [facility] 2022-02-27 2022-02-27 Office EZEQUIEL Chambers [id number] [facility] 10:40:00 13:10:57 Visit Rosemary TerryNair 350.1.13.21 Co llege 0.2.7.2.686 of [id number] Medi philippe 504 e 2022-02-27 2022-02-27 Office NATALIE [facility] [id number] [facility] 09:17:08 12:02:58 Visit JESSIE Miroslava 350.1.13.21 Co llege 0.2.7.2.686 of [id number] Medi philippe 520 e 2022-02-26 2022-02-26 Office Ureil, ABNER [id number] [id number] [facility] 14:30:00 14:57:23 Visit Sharyn Jennifer AMBULATOR 350.1.13.21 College Y 0.2.7.2.686 of [id number] [facility] philippe 300 e 2022-02-17 2022-02-17 [facility] [id number] [facility] 11:19:19 23:59:00 Encounter [facility] 2022-02-17 2022-02-17 Outpatient [facility] [id number] [facility] 11:19:19 23:59:00 [facility] 2022-02-17 2022-02-17 [facility] [id number] [facility] 11:19:19 23:59:00 Encounter [facility] 2022-02-13 2022-02-13 Office KODI [facility] [id number] [facility] 08:46:40 11:36:12 Visit DUGLAS TerryNair 350.1.13.21 C ollege 0.2.7.2.686 of [id number] Medi philippe 510 e 2022-02-03 2022-02-03 [facility] [id number] 00:00:00 00:00:00 Orders [facility] 2022-02-03 2022-02-03 Outside Reyes [facility] [id number] 00:00:00 00:00:00 Orders [facility] 2022-01-23 2022-01-23 Office [facility] [id number] [facility] 11:20:00 12:05:55 Visit Rosemary Miroslava 350.1.13.21 Co llege 0.2.7.2.686 of [id number] [facility] philippe 504 e 2022-01-23 2022-01-23 Office KODI [facility] [id number] [facility] 09:22:40 10:59:27 Visit DUGLAS Miroslava 350.1.13.21 C ollege 0.2.7.2.686 of [id number] [facility] philippe 510 e 2022-01-21 2022-01-21 [facility] Lamberto Zamudio Luis [facility] [id number] [facility] 14:39:09 23:59:00 Encounter 1.5, [facility] Miroslava [facility] 2022-01-21 2022-01-21 [facility] [id number] [facility] 14:39:09 23:59:00 [facility] 2022-01-21 2022-01-21 Outpatient LAMBERTO ZAMUDIO [facility] SLE [id number] SLE 14:39:09 23:59:00 2022-01-21 2022-01-21 [facility] Lamberto Zamudio [facility] [id number] [facility] 14:38:39 14:38:39 Encounter 1.5, [facility] Miroslava [facility] 2022-01-21 2022-01-21 [facility] [id number] [facility] 14:38:39 14:38:39 Encounter 1.5, [facility] Miroslava [facility] 2022-01-21 2022-01-21 Outpatient LAMBERTO ANTOINE [facility] [id number] [facility] 14:38:39 14:38:39 2022-01-14 2022-01-17 Outpatient QUAN CARDENAS [facility] [id number] [facility] 12:14:44 12:16:28 [employer] [employer] 2022-01-14 2022-01-[address] [facility] [id number] [facility] 12:12:45 12:14:37 [place] [employer] 2022-01-16 2022-01-[address] [facility] [id number] [facility] 09:01:44 12:23:58 [employer] Medicin e 2022-01-16 2022-01-[address] [facility] [id number] [facility] 09:00:59 12:16:07 Colleg [employer] Medicin e 2022-01-14 2022-01-14 Outpatient VASU CARDENAS [facility] Surgery [id number] [facility] 08:06:00 13:06:00 [facility] 2022-01-14 2022-01-14 [facility] [id number] 08:06:00 13:06:00 Encounter [facility] 2022-01-14 2022-01-14 [facility] [id number] 08:06:00 13:06:00 Encounter [facility] 2022-01-14 2022-01-14 Anesthesia Yary Maya [facility] [id number] [facility] 10:45:00 11:44:00 Event [facility] 2022-01-14 2022-01-14 Anesthesia Yary Maya [facility] [id number] [facility] 10:45:00 11:44:00 Event [facility] 2022-01-14 2022-01-[address] [facility] [id number] 10:00:00 11:00:00 [facility] 2022-01-14 2022-01-14 Surgery Donna, [facility] [id number] 10:00:00 11:00:00 [facility] 2022-01-14 2022-01-14 Travel [facility] [id number] [facility] 00:00:00 00:00:00 [facility] 2022-01-14 2022-01-14 Travel [facility] [id number] [facility] 00:00:00 00:00:00 [facility] 2022-01-02 2022-01-02 Outpatient [facility]BERTO ANTOINE [facility] [id number] [facility] 00:00:00 00:00:00 2022-01-02 2022-01-02 Outpatient [facility]BERTO ANTOINE [facility] [id number] [facility] 00:00:00 00:00:00 2022-01-01 2022-01-01 Outpatient EL [facility] [id number] [facility] 10:01:37 23:59:00 2022-01-01 2022-01-01 [facility] [id number] 09:45:00 23:59:00 Encounter [facility] 2022-01-01 2022-01-01 [facility] [id number] 09:45:00 23:59:00 Encounter [facility] 2022-01-01 2022-01-01 Travel [facility] [id number] [facility] 00:00:00 00:00:00 [facility] 2022-01-01 2022-01-01 Travel [facility] [id number] [facility] 00:00:00 00:00:00 [facility] 2021-12-04 2021-12-04 Outpatient EL [facility] [id number] [facility] 00:00:00 00:00:00 2021-12-03 2021-12-03 Office FRANCESLAMBERTO [facility] [id number] [facility] 08:24:19 16:45:23 Visit AMBULATOR 350.1.13.21 College Y 0.2.7.2.686 of [id number] Medi philippe 325 e 2021-12-03 2021-12-03 Outpatient BCM [facility] [id number] [facility] 07:09:59 11:48:38 Colleg [employer] Medicin e 2021-11-28 2021-11-28 Office ERIN ESTRADA [id number] [facility] 11:16:57 14:27:16 Visit JESSIE Miroslava 350.1.13.21 Co llege 0.2.7.2.686 of [id number] Medi philippe 520 e 2021-11-28 2021-11-28 Office Reyes [facility] [id number] [facility] 10:40:00 14:24:11 Visit Rosemarykelsey Landryr 350.1.13.21 Co llege 0.2.7.2.686 of [id number] [facility] philippe 504 e 2021-11-27 2021-11-[address] [facility] [id number] SLE 00:00:00 00:00:00 2021-11-12 2021-11-12 Outpatient [facility] [id number] [facility] 08:15:57 23:59:00 2021-11-12 2021-11-12 [facility] [id number] 08:10:00 23:59:00 Encounter [facility] 2021-11-12 2021-11-12 [facility] [id number] [facility] 08:10:00 23:59:00 Encounter [facility] 2021-11-12 2021-11-12 Office [facility] [id number] [facility] 13:23:51 15:27:56 Visit ROSEMARY Miroslava [id number] Co llege [id number] of [id number] [facility] philippe 504 e 2021-11-12 2021-11-12 Outpatient [facility] [id number] [facility] 12:45:28 15:20:27 Yang jennifer of Jefein e 2021-11-12 2021-11-12 Outside Lamberto Zamudio [facility] [id number] 00[facility] 00:00:00 Orders [facility] 2021-11-12 2021-11-12 Outside Lamberto Zamudio [facility] [id number] 00[facility] 00:00:00 Orders [facility] 2021-11-11 2021-11-11 Office LINK, [facility] [id number] [facility] 08:02:34 19:54:22 Visit SHARYN AMBULATOR 350.1.13.21 College Y 0.2.7.2.686 [id number] Medi philippe 300 e 2021-11-04 2021-11-04 Outpatient LAMBERTO ANTOINE [facility] [id number] [facility] 00:00:00 00:00:00 2021-10-30 2021-10-30 Tumor Moufarrij, [facility] [id number] 00:00:[facility] 00:00:[address] Conference [facility] 2021-10-30 2021-10-30 Tumor Moufarrij, [facility] [id number] [id number] 00:00:00 00:00:00 Board Radha reese Conference [facility] 2021-10-22 2021-10-24 [facility] [id number] 11:51:00 15:25:00 Encounter [facility] 2021-10-22 2021-10-24 Outpatient [facility] Surgery [id number] SLE 11:51:00 15:25:00 JESSIE 2021-10-22 2021-10-24 [facility] [id number] 11:51:00 15:25:[address] [facility] 2021-10-22 2021-10-22 Anesthesia Anjana Chiuari [facility] [id number] [facility] 14:45:00 18:44:00 Event [facility] 2021-10-22 2021-10-22 Anesthesia Vijay Chiuann Maganabarb [facility] [id number] [facility] 14:45:00 18:44:00 Event [facility] 2021-10-22 2021-10-22 Surgery Hoppen, [facility] [id number] 13:35:00 16:40:00 [facility] 2021-10-22 2021-10-22 Surgery Hoppenot, [facility] [id number] 13:35:00 16:40:00 [facility] 2021-10-22 2021-10-22 Travel [facility] [id number] [facility] 00:[facility]00 00:00:00 [facility] 2021-10-22 2021-10-22 Travel [facility] [id number] [facility] 00:[facility]00 00:00:00 [facility] 2021-10-21 2021-10-21 Outpatient EL SLE SLE [id number] [facility] 12:06:16 23:59:00 2021-10-21 2021-10-21 [facility] [id number] 11:25:00 23:59:00 Encounter [facility] 2021-10-21 2021-10-21 [facility] [id number] 11:25:00 23:59:00 Encounter [facility] 2021-10-21 2021-10-21 Travel [facility] [id number] [facility] 00:[facility]:00 00:00:00 [facility] 2021-10-21 2021-10-21 Travel [facility] [id number] [facility] 00:[facility]00 00:00:00 [facility] 2021-08-06 2021-08-06 Outpatient LAMBERTO ANTOINE [facility] [id number] [facility] 00:00:00 00:00:00 2021-05-14 2021-05-[address] [facility] [id number] [facility] 10:25:49 16:14:12 [facility] [employer] [facility] 2021-02-06 2021-02-06 Outpatient QUAN LEMA [facility] [id number] [facility] 10:40:55 11:42:41 [facility] 2020-06-14 2020-06-14 Office QUAN Lema 1.2.840.114 [id number] [facility] 14:33:33 15:54:55 Visit Eagle A AMBULATOR 350.1.13.21 College Y 0.2.7.2.686 of [id number] Medi philippe 300 e 2020-04-24 2020-04-24 Office Lamberto Zamudio [facility] [id number] [id number] [facility] 09:29:50 09:49:50 Visit K AMBULATOR 350.1.13.21 College Y 0.2.7.2.686 of [id number] Medi philippe 325 e Results Test Description Test Time Test Comments Results Result [facility] e Comments CT, CHEST, WITH 2022-08-06 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 This exam was performed according to our departmental dose optimization program which includes automated exposure control, adjustment of the mA and/or kV according to patient's size and/or use of iterative reconstructive technique. Comparison Film: CT dated February 17, 2022, MRI dated January 21, 2022 Discussion: Visualized thyroid gland is normal. No supraclavicular, axillary, mediastinal or hilar lymphadenopathy. Multiple densely calcified right hilar and mediastinal lymph nodes likely reflect sequela of prior granulomatous disease. Heart and pericardium are unremarkable. In the posterior left upper lobe, there is mildly lobulated 1.8 cm nodule. A cluster of calcified granulomas are noted in the right upper lobe. There is also a 4 mm nodule in the left upper lobe (image 28) and a 4 mm nodule in the medial right middle lobe (image 64). No effusion. Central airways are patent, no significant bronchiectasis or bronchial wall thickening. A few small cysts are in the liver. No biliary ductal dilatation. Gallbladder is unremarkable. The spleen, pancreas, and adrenal glands are normal. No hydronephrosis. In the right lower pole, there is a stable 1.4 cm enhancing mass, concerning for neoplasm. There are a few punctate nonobstructive stones in the left kidney. No filling defect is identified in the opacified portion of the renal collecting system. No evidence of bowel obstruction, or abnormal bowel wall thickening. There is a large amount of fecal content in colon suggestive of constipation. In the pelvis, bladder is normal. Uterus is absent. No adnexal mass. There is no ascites or lymphadenopathy. Bony structures demonstrate mild to moderate degenerative changes. No suspicious bony lesion is identified. Impression: There is a 1.8 cm lobulated density in the left upper lobe, infectious versus neoplastic. There are also two additional nonspecific 4 mm pulmonary nodules in left upper lobe and right middle lobe. Suggest short-term follow-up or correlation with PET, as clinically appropriate. Again seen is a 1.4 cm enhancing lesion in the right kidney, concerning for neoplasm. Several punctate nonobstructive stones in the left kidney. Constipation. 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 This exam was performed according to our departmental dose optimization program which includes automated exposure control, adjustment of the mA and/or kV according to patient's size and/or use of iterative reconstructive technique. Comparison Film: CT dated February 17, 2022, MRI dated January 21, 2022 Discussion: Visualized thyroid gland is normal. No supraclavicular, axillary, mediastinal or hilar lymphadenopathy. Multiple densely calcified right hilar and mediastinal lymph nodes likely reflect sequela of prior granulomatous disease. Heart and pericardium are unremarkable. In the posterior left upper lobe, there is mildly lobulated 1.8 cm nodule. A cluster of calcified granulomas are noted in the right upper lobe. There is also a 4 mm nodule in the left upper lobe (image 28) and a 4 mm nodule in the medial right middle lobe (image 64). No effusion. Central airways are patent, no significant bronchiectasis or bronchial wall thickening. A few small cysts are in the liver. No biliary ductal dilatation. Gallbladder is unremarkable. The spleen, pancreas, and adrenal glands are normal. No hydronephrosis. In the right lower pole, there is a stable 1.4 cm enhancing mass, concerning for neoplasm. There are a few punctate nonobstructive stones in the left kidney. No filling defect is identified in the opacified portion of the renal collecting system. No evidence of bowel obstruction, or abnormal bowel wall thickening. There is a large amount of fecal content in colon suggestive of constipation. In the pelvis, bladder is normal. Uterus is absent. No adnexal mass. There is no ascites or lymphadenopathy. Bony structures demonstrate mild to moderate degenerative changes. No suspicious bony lesion is identified. Impression: There is a 1.8 cm lobulated density in the left upper lobe, infectious versus neoplastic. There are also two additional nonspecific 4 mm pulmonary nodules in left upper lobe and right middle lobe. Suggest short-term follow-up or correlation with PET, as clinically appropriate. Again seen is a 1.4 cm enhancing lesion in the right kidney, concerning for neoplasm. Several punctate nonobstructive stones in the left kidney. Constipation. Signed: Jennifer Birminghameport Verified Date/Time: 08/18/2022 12:35:26 Reading Location: [facility] B1 C013X [facility] Consult Reading Room Tissue Exam 2022-04-29 12:49:50 Test Item Value Reference Range Interpretation Comme nts Case Report (test code = 104) Surgical Pathology Report Case: [id number] Authorizing Provider: Duglas Mariee MD Collected: 04/04/2022 01:27 PM Ordering Location: [facility] PERIOPERATIVE Received: 04/04/2022 01:45 PM SERVICES Pathologist: Valerie Lorenzana MD Specimens: A) - Lymph Node, Oak lymph node #1 - 6,100 B) - Breast, Right, Right mastectomy, short stitch superior, long stitch lateral C) - Breast, Left, Left mastectomy, short stitch superior, long stitch lateral DIAGNOSIS (test code = 3220) v2mdrKTjPSKar4pmBOLfbKInUmHdDfGsAoTdFx p cdWMxIHtccnRmMVxlcGljOTYwMlxhbnNpXHNwbH NcN7WetmtwOSvzID3vGS5wgOihmKRujNQkXLKlA cGhk6wue429fCTqd9ibDRNTmafmsLk2zPvhA06e u0Y6NqfhI96xbJRqANH1WZUxJGRctHQtWQNzGOT 5HPOefAVoW4meOGSyNU0oyggmAAtvUGfyTZQwaQ B6XDWnbZEmI2FbWGMxYIpeWJIotyl1MhFwHt5on TTbdOxaLKbrMBMkQEKcZEtwZHOrOzNdZC3HRiVJ QIyYWFWIDS8LXQNXMIZnSsiQDCaIDaPRJWXCYjs KBsZEJ5fWHNsIXNMVGy4DBKNHQhDERsRJDTRQCN HMRWjmPqXoK34HOEWLAGWYSRWMR99LWQlTNTVZQ S5BDRCXS1JECXVVAU2BXAjWQNwxW03ORWUSQG4Q ALseP53RMwCNLIrCNzVzAO8PO0EZF4GRCZyDFGB WRV5TVtHVAC0PMaTYJDKQDIBUWK3mSULCMd6MSU JIIeWZHTXoX0PNLP5XRAKLCmJIL7HyCNoGZpKZF EBSJqNZD5LEUHiQTZTsYJzjIOIfADNTHYUQA6VR XcMNZVXOYBUTMZ9NTwPfRO9kUWeRYdDBDVKTSU5 VTUJFUiBTRVJWRVMgQVMgVEhFIEZJTkFMIFJFUE 1FHK7sfQUhqKietrIfIAxqt1NbNCviTYHeND0kx KfpTJVjVQ2xTYCoW9rwyM7btuv3UjUuSBLnBbB6 CIVrzfO4Ikw8YLSoWPqjk0uio3JoYJIuPXq4tDx hBgKcLUFkd9auzwNbPgGzBTHgELJuIMPbdARmH8 64d1iqm7jbyeZenMY0HOAkOVT2DLrdenFmekM9K KvlbOKcIwG5VTgspvKaXIcyzvLcwjYwIon8ABVk E824OED9sQist5atOOQ2FPTcSYKaBkXgEg7lsRB hK852SMVlBJSSRMNfvEs7ABDvwzUsvrBdlUVRk5 82Y941v0eiPZDqjlKzuKtDuokmi2ppK641QFFsq VEuxaNcTkFzMMBllTQapYT2LLBxRY6aeruxGNiv IInzMARyfiF7OQHzhQIjM9IbVGIvOC7pqkosVIL 6ULcsWTAuJRQ1VpAoXGYew3Qqutm2YuDqob7umh 39DFJ5i2JktBuyXJF8CXQ4MeYcTq6loEQjJFJeN O0dXkJjhAMxHDKozv03uGciTTvhTMG4XRKeudLl z3Wbu1ndZoNrceBlD3neI1ZbFNQwXNGjNQJvOsN kcjSsd0Mjt7ItlJFpbBg7q8kbAEPpDHXfaAugu0 kuGPO6LKGghQCbE4vihW8rIUQgCJ5jccwtc2jlG ZynEGqrXTZdbWK0duA3NNHxgRInD3LcsL4oIYUf GVpyQNWbdsa3PgQzOj7vjCPguWatOVfrDpfoXOk lXHBnbmNvbnRccGduZGVjXHBsYWluXHBsYWluXG YwXGZzMjRccWxcbGFuZzEwMzNcaGljaFxmMVxkY sQuSXDqUMdsA3rwNoPiZqPqHjz1XAUvpBYwPDAe Ypw8GQOawNBhQHDUeDnfqB7cXFGkjTnoyH4mpQU 4MXCllsTbzNNHgG1qVAVRjM1aWqJ6QaPsJaR5PE D7KOGinJVoeB4= CPT Code(s) (test code = 1937) e5ayxIOzTOFfiIL9WzOyWYPhd6dvd4DnfRLy cGF zKUitxDPhmgDudu63hEM4hZ24LD4nCQGdCmC1XP YrueT7Tzc8PDUqDUSbxMHmL454o6wgu4beoaTzn NU0eJbfTOYgojvpJuV6CIwwWAOylsftGWr5CJog AUVodIF4CIXhkTKwM7MjXUXtBN7xmsc9XZG1HYm fXAJoVyP2FDStwTYjCXTovQxeXHgoz002CSR7Ft LnRJNqqjKngBtuhP1uHlSvFEGOOuT2TOLjGrM5H YTrrNEeUINrHBc2FdS8KZskMMvhXRykWwsunUBj CfN5HXP7HjH5SQG5CQj7SvJwDWlgZCeePYAoDc1 gODgzMDcgeCAxXHBhcn0= CLINICAL HISTORY (test code = 4573) w0zyvRErWIGjsGY0KlPrORMjs0yvz8Z sdHBncGF hHHyacDPdioUkmq69yRO7kB75KQ5rVDGxKkR7XG OevaS3Ybs0LDCrKOSyaKQwJ198e0lbg8cfndSrb UQ1bPkrNHGrtutyXeP1SJomKVIljnymTDk1TGcn PMGxqEU5HJJgcZEyY1MlGIDrLP5pqyh9QNC2TWj fEFQhBwZ5HJGlsGBeOMLbwLpoLOxdt310WGZ0Hi PxIKRcffAbqUdvbS9dGuSsWIGERLWwe3Pbug3dI CByZXBvcnRccGFyfQ== SPECIMEN SOURCE (test code = 3377) r5bslZXqIDLqxIK1ZwLwEVDeo4ddb0Zv dHBncGF xPNyktSKlgyLotn12cFA5qQ85AG5hLLMuEtU2RH WkjxB5Rbw8KLWbYFLedZBgK946w4ijg8emtcKxp DO0sPchIYEnhuzaFqT6EPnyNXOxvpgrGVi9CYev MIRroYP0SQMztVHtR7KcCORhJW1qqvm3PEA7ROt bGVReTbA7SOVwnUHaKHGneWfzGOdbq960GKY6Ey YzSDQzklAirRyqxL6pPlHmMXESSAHgr3Nckt1vW CByZXBvcnRccGFyfQ== GROSS DESCRIPTION (test code = r1dlrMLlZNWmcTQSNTZvN4irizUhQFJvnQSe Z3B [id number]) ihamsHXbyRK8bMD0yaUnowPBxeDPnQX7CAYUeXw QoTMCbbMQsgdOmIgUcWXVfaUOtaNC7AMXiKG3fe xmpPHesTEfzHPQzuiR4KPLkqAHaG7CrHWHjDH2i jpcdKFV5WFaihT1kswFKTgaePo1btQWjjXzrUpE tVnStOGUhEMLeVNWrpBpsQUEoRNo7hC3PXreuPX Y1NWVTDvyeOAOlXH6Cu5lgXCZdgJAzVXF7NIjvn IMaSKYxSKQcWXv3JHByYGgxvFGxPZ3cfPupPpgf xFeko6QasMClABuhSZQbHEZvKOnwSLAqBP3EBmP fKLPdEOd4KrIrHQm4YMc0AO4EFoXxMVMkSLRbBw A4AYCsKYe5TFchHU8AIRYuULUwPAB9DcL1YYV5N OMqQDWeZfZkAGWdDLHfLCwhRJsfrVZpHP4gmHsi aVWzbcCBEnMBpC9zfIHVj4KhWhfdQWGmKSohDFX vW17am4GYl6XmVT9XZDb2ioAigsxrgQ8cNXXtug GkTXbqaXFuB9riSwEfJLZGIJPza5Eisg8dYKQtV XBvcnQNClxwbGFpblxlcGljTmVzdERvYzBccGxh iA16QHMpfRNaCTK7BD4jCQXexpquSKXyAGKoILI 5LVmidS19gGFxARGsLNUetBQgdW3Bi3kdOKRusG TvQIW5VMbgwNIdVQQaGIZlLIdjKpDcK1QQQFPpS FV2WkbdDBIjHHx9LGkeP5BTECNdYRXpOcO7Risg EaT9TRc0AUAEVt4cJfC8UMKzGWUnNVJ2JHA9NLi xlFNfZHiqMgCMgvqewJJwOLZcPLvqbmU0RZLuFT DtrOpyhZ2aTr2uSdWqDTB4DZGJpMlesT3uqAMnH Q6KCLVypOUVGXT9LL7kZTEURpmhmDOmJXYvcZoz LBpieA8gZV0DPFy4whUfXRLzAmIeF2YsJYYxEX4 aCOAkuqXjg8J2MIjedCnhmE2hIMFbP22uw2LYf5 VdMQOhIQkli2crsYifg7DfpSVbBLqxVNRpxNKtW DdroM9eTsRyg5pyeGr5IWruaeG8ZYZgeq6RZund FrlovEama1YzoDZjYBmjUCDrNIXkJFjjPTSkSK9 QGoGoRUSbLBv1TzLoVAv8RGk2CF1HHsEnGILbZJ BzLau1JTExCKg4HLqpSZ2WCNJpWNQtLRH6PkP2T PR0XEXyATYbRkRwZZAaRQMfOZfoMPmmeSUwCE3j kJnjtxS0FJRmNRfuIUAmZBArEAOosIslJKDmjB9 tlVFqAI4TIDOsvHUTZBW9WZ2xNSCYVxwxtSHrQA LryTmeDGezbY1iKI8ZVNu6rzBtPMMhMbLrG8KvR ANrHF9cRMXtfsNzo8U5DSdaiQncoT0mUABbG60r z3AJi6RjSMBcCXndg7zakKzfc2WafHRmNMczHON opSLaGYumaC6aOqJtz6irkZv5BAntiiS1ILQuct 9IGkmmvQ9vNrRjp4wwhSm4UIXMBoepmzY3b5wcp Dkpd0VojSSzYC7RYt1= INTRAOPERATIVE CONSULTATION (test code = c3xnzHFkXZVyg WX0QcVeGMDcx9vnp1SeuLLrlOV [id number]) eSFzfqPTmceCxnc56eQD9dI85GE3yKIWtOrF5NQ HfefX9Hog6DTWjQHCyaIHzH722h0hfk4phdjNlr JX0aHfcJFOrezkxYbH4NPnaIGTyqcnpQSs0APqk JHTjxRR0BMLkxIEgS7OhIQXpNO0gsns0COQ5KMn yJLSnGtE0XGSltAZwYVHtxEgeYMjpf254BOA7Ls LiWTKvwjT3HPtuLETgW8EfZ5LgBNhyNFF2JDFhC SQaCONrQZQnJERuOZgouzU3f4ejVCBrsIBmWOT7 KFhiwCBsANGgFCZxFObdXuXBBhJxOgX3FEu4VrO fKeQ4YSm0ZMMMLpAmRbKrLgLaDzB4JQSoVPr7ID z5NPcOHkB6KUi0ZRS9MWQkQTXxERwsGAa7OCMiT OypoZMdXHQdNNPrKWbqHPmzO97ekZhncJ5gNnBi WRBGQxBNnjSox3UfIGQyJ1g1OpcsZOQtYoWrUDK LzpFcZH1uEUIvmFx2DKTbkr3eqbJbu96xxYx6GZ Kkq70nfSyfAZDHqvXfu4OdIBZrU5s0RW5sn8RlY 3WhcXv5QRxfngLqONVkqSJqdEUqF09cFJGqbyZk ZE55XNUdCMNsIoKte6gaXEPip3QfZXCsKNA2xZJ nDoddgIWlPJV1cCGrrB8bFT4ylmoqqf4mIR3hOS 5cepxdqANlC2KpW3oliHGabKeqkfMga0Lcvr4wi SrmOHtxyO1sUYEpRRGbUa79ETLytBFrll5rrBKf g0BnELBdghHklZg3FDZhzS8mbMAbEOH9JHViBvF OTLfeNWPkQSOyXrTIvS4fkZWoepBqjeIWGlCct5 TyUTDmLnVKPHBtzmN6JmFoQxRsArZ0EWXqhZExF PY0JU7zzGglEIUkH0CcR3SdleE2CKJufg5= MICROSCOPIC DESCRIPTION (test code = u2xqyOAaEMKvgZK1GmEjKOWof7hst2 [place] [address]) wOMyavPEavkTjhg19mVV8nB50CK0nHMCiCvR3DY VwzwQ8Olz0GDPyNXPgcTZjY908i8qfz3ndkhGul AW5cIefCYBrmkiaRlR9QKsiLVAqsbbaHPo3TYol EJIexWN6QJOmpAMdK5VmXYJrBB4lrcm2MSQ7GVp jFQUoKyB4ULQjpKElBJVceOolFPcag669VEP5Pd YkHQRqzgIdmHfvoF5eLxXzCMWKVSDnWMHartWsd p6yOY5ckWAgdF== Gross assessment was performed at (test [facility] enter, code = 2777) Department of Pathology, [address] [place] [address], Technical component was performed at [facility] er, (test code = 2778) Department of Pathology, [address] [place] [address], Professional component was performed at [facility] enter, (test code = 2779) Department of Pathology, [address] [place] [address], [id number] 12:49:50 Test Item Value Reference Range Interpretation Comments Case Report (test code Surgical Pathology = 104) Report Case: [id number] Authorizing Provider: Duglas Mariee MD Collected: 04/04/2022 01:27 PM Ordering Location: [facility] Received: 04/04/2022 01:45 PM SERVICES Pathologist: Valerie Lorenzana MD Specimens: A) - Lymph Node, Oak lymph node #1 - 6,100 B) - Breast, Right, Right mastectomy, short stitch superior, long stitch lateral C) - Breast, Left, Left mastectomy, short stitch superior, long stitch lateral DIAGNOSIS (test code = n3zkgKHjBCVll3gzDNVtjR 3220) FuZzEwMzNcZnRuYmpcdWMx IHtccnRmMVxlcGljOTYwMl mizjTyHNChsRPmL1Qcleit XGwsJM7hJS8cqQewcEWbvA EePMCeVkQxz8jix374tPKk y2ywKMIWbspdxMb5kLqhJ8 7ty8M7KdweK49qpTJtHII2 WMTqESRzfOTtJEBxBNK7OE CuxKJfS2twHOZvSQ5jssxy GIydADsmHTVejCQ9CUEedT QkC7KhSHGqNLrcMHQzzjt2 TwCaBk6hdFQonApaFRphMO MyBUFtAXndRAZdJtBtNS4A YrBJWTeNVRFBLS4DCACHRC MgRklOQUxJWkVEIERVUklO TvJER0hTXZnKBVVWMv5ZTR RVUkVTLiBUSEVSRSBNQVkg SvOoP19YKGPYGBAAPDSPV6 6INIuUZYQQXT5MILVST1ZW ESJOKU8ETCzUXYxxI98MPU AOAV8EOBfwB80BCdNKIVuB RmQyZS7SZ4DXP6LKTApGRY BONC6OUrMRSX8YCmSMLZSB PFOIMD8yHBWWIc9WZEVTVs RNMQRlR8KHQG1GOZBHMfXK F2QdSAeHMeIOYSUABwQUA4 JZIElTIDIxMDgzMDEuIFRI HJCTJ4BTVmPRAFYKNVNTAN 9KJxZiGC4cUBeLXzYFZKVM YF1VOPKXKdNBNVKTTELzRD GbAZoPWVWHTyRVTYXKVS2S BG2jnVYkmXfjvvMxPHwcd1 CmDHnxXWYrWT6ryQxrKWFa QD1jODMiP6fvnO2aiwj8Lu PdTMRrIwI3AFEnikS7Jxd4 PNBlAMglq9rot2MmZSRdPU n9pMvrXkHdLHVit9zwrgTj ZmNoYXJzZXQwIEFyaWFsO3 98w2nff2odvrUauHK1AQMn BDX9IRyyvtPodaL2OAwfnR LpZpE2VGgculOiHQkziyOv vyJmNje2TZBbM109NBD5bT ttm0sxATT7RMTnFMDzKuYv Cq2bgANqI660LNJxRMIWDH XwhOn2WQRzbwNwajLctIIZ u009F666y3weVCGfavAwrO dJryhms1rxS192ABSnkQEx ebCdYdJeUOYlxUQazRJ0RZ ZxVB1xijypRXloVSzkGTBm rgE6ARPuwLPwZ5GdVEFtAW 5dopnwNGO5NAqxNISwNKP5 OeOfXOFyc9Mkfhl1QuYpqj 9urm60QMA5g9IsjWocYQY1 MIA6NeYtFm7mtKRhZWPdZJ 1pBbWedODxCETlns71cYdh NAewCNC4KMLzvyKoa3Jev6 tqCeJrmtGqJ3epB8XuZDNo ZJPiGWBlAxIzirTwh5Cim9 MhrWCijXk8o2gdNCMeFXPk wTiwe0piDMW9SHYcnZHnX7 hnnV6iVIUiPB5ssvljn5no IEgcLWkxEHSihFD8czF2DA OndDFlQ2WuhG2dBSFbTQxp KDGnmgx7MqHtDk3ihLQxsN cyMFxzYmtwYWdlXHBnbmNv bnRccGduZGVjXHBsYWluXH BsYWluXGYwXGZzMjRccWxc bGFuZzEwMzNcaGljaFxmMV vcArBsHTXxJFauK2nnAnDx SjWbKoo8ADFlxWDlONGmAc j2SHQmdFXkHYYKgRilgB3j ZBIlrXzgkG1owGQ7XTJglw DvuJDZcG1jRDUUsC4qZmA9 KkQvOjP4TQL4TTRvaERezL 0= CPT Code(s) (test code o1cwtQQaAVTgxPC2DxEmXN = 3357) Dtt3pfj9HyjQRoqBWwQOkw zYWihuBmqr69jIS8bT08YS 6pGXRqHuG0NDEzljF4Qvu0 ZANuSACzuVLgS669c2yzy7 vijpYdfIS3zSewIFIzhjus KtW9JNcoURSbtkqvMGq3EU ixIVTfkLS9ZYYmeYLjQ7Es SDQmJB8fxjs3YQR0WGjhQJ QpJqU5KIMcpVWpMQGjiPty DPtud629WAU0QfKrRUInjj BbgHrqkW5bFqYeAUTZKbB2 WPTjXgK0EWQdoREwUDCaQO l2NvZ7ZBtvLBdvINmwRgbw jQKhQjD6FWU9QsS9QPR8YB p5PzFvCCigJTdnFQUfIr6z ODgzMDcgeCAxXHBhcn0= CLINICAL HISTORY (test l7fdnDDbOSAsaKN5DcIdOM code = 3356) Ghl4lzz9AkeUWrbLGiPVdl mASvlxVfkx61qWU7gQ53SF 5qTVUgDeM7LHAqxcC6Tbg8 YEBrKLDlyRGsR550i9yos7 xfonCkzYC1jZxjIQAjrcbg PzN7UBhtCESasmdcLKr0ML zaZOMicFQ0GDBbpVTrE8Tk PQYhWC9tqel8UML1IDaaMB WuHpR8DHJbaGAvGAGajYuu XPpdf657MSG7WrIrCMRnia NjlAngiV7lEdXfQJFYCCGm i5Dvlg6mFYKcNFLoouGlwE FyfQ== SPECIMEN SOURCE (test y2davHYzKFLwfWD9WaRbYK code = 3377) Slg6acl6RcsBInlLFhMIxo vWJsncRxjb91vDB7xI82IG 2kUGRrImV0BXMfiuH0Aut2 ERNfHMDbvANyT463a9ewa2 blpsKolZY1iEvlHVSeursy QpG6WFirVXGewodjFGp6VI ibKSLdgHY6DAPovUPrZ1Kf LCGvPW0srxl4NYZ5XZilPN YeAkU5SCLhwSJlCPAxeFaz NLxrr530ANI9BgHaAOGbyy VpyZvmjV3lEzPnSQLDNDOv u8Ffcx7oVXUfRKNkiqJxdF FyfQ== GROSS DESCRIPTION (test n0wxqUTeDGHufSDTQALcU7 code = [id number]) nobrNaVLRdmARlW7Vblbdi YMssYU5jYW8roHwwsKQyoP CqGN1BKNStOuJhJPCxeOPy lyEbJxJfUAFgbKJqaGT8DM KgBA3hoytsXFqmZTuiWAIr gaB7VCKbvVRdA2KoSWQlHT 3sactuDMR9XEtywC1ewrOC XrlcIz4wjRUczAakSiBxCa NoYXJzZXQwXGZuaWwgQXJp VDj6uP5AQjwsKWT6DFODOv clGDYxGN0Ui8rwWWXpjHSa OUL2BAwmvZKyQIXvTKZlDF u8MPSfLMekcLBiTW8lmSpy SeotdNyjs5MfiVLrXDpuLU RhDKKdAAppRGHySR2OVzFz WFHmJOa5RxFfFCg8KLs0NJ 4EPhNpTDTrBEKlSmY9XMJv VIe7CVhrKA4XJJEcYYByZS L6TlF8SUU3FFRmYCNcCyUi XGYgQXJpYWwgXFxmbCBcXG 1dtEzxkCUaolKBLvPYuT2j aYYKc5EiBshiXMXxRXtfMM QhT54rq3CCz6SgZM8TJHj7 ghSogrkkkD9fLWUgidZyWO rqcTXdR3pdLgGtNUBSWNMn p2Gxtd8uAVNsBAJwizCTNt xwbGFpblxlcGljTmVzdERv DbLgyExfbB28CTAbeAUzOG H3DE6vGOZoxxtwRGXnTBSx ZBB0YYqalH41kGTtJAReRV ZfhAEanX8Vf1fvAUIsyJHg VMY5ADdatGBqWNMnBFUqKX xeMgZlL1ZBGKHiYER7Xunp YISnTYq8DOvwI8GQEFEdPI PaMdY8RjqdNbF2HGy9PGBF Sk0fVdR2DSHeYZXfSSN8TZ V5GYawvBHmBCzpGdVTgffs iNUdIAImWIgjtyK3VHGyIK UrcSjdpC1jFk9vZxOwMCR9 TKKUeXuofP1xkMAqBA8DJQ UrwZCOGNU5IZ0hBPEJNhyf nVClIRRytHxmCWhdcZ7sCZ 6AERb7ivItZWSjXpEcQ2Zm XSMoOA9pHFUgqnRim2R5EN mcdFtmhC2fUEBvX87ep2KA c2DyVBLbYUxhs3ytiYync3 VjdGVuZFxwYXJccGFyZFxz hC2oKuTcn2eizNt3JWbyvw W2DGOhxs8EAwqsIugyeFhs x8XjpQLeKHotHUHnCVVbBX avKNKbZR2APuGjOYZdJOt6 KsQuYYr4FKk6KA6OPySgPU AlQDEfTpq4ZJTgXKd7USzd QV2RUSZvBXLxJEE3JgE1VL H5IGPwUUMfQoEiBDYdVYOo KZvkLGfbiEBwTO2mqIewgf R2UXFzYVurOCWfNAXiCCZj dHwaODDyqL2osCMfGM0STX QxtRJOXUA5KH3lVFJFOmfj cCPwERFmgUfhPPknwV7pRC 3CYEe8laNhAOWhEnZgR9Ga IRUhAU6iHATajfPaq2U7VK ntfCcgcX8fYFRlF99eh3QM i7RvLHCxMZmal2xdeZntd3 VjdGVuZFxwYXJccGFyZFxz mJ9hNwKez2aisXo5HBddyu M6KQYfws4TUhbcwC5rYjQz q0rxsEq4OGZOMilnuqS1a5 vriHgrb4DfcOXkAA3FTx2= INTRAOPERATIVE t9pefKIaLABkcKC9IqExDH CONSULTATION (test code Uau4bsl8BwgYJkeUApUVmr = [id number]) wTAwmbLdyb84jVJ1xA39OX 7eJGKuStH9KXImdcW5Vin7 IETkOAFdzGAdB241t3cmx6 yuzgBdiHX2xCjgTQBrdfks PsZ4PXwjEXUtrsatYUp1CE nnAETqoAL4SYYqtASiH6Bu APFnHG9bzxu1MFP7CEdhFA KbKbV2BOEbhURbHRNfjLxu DLtyn283JYU3JhAqPINozz G8BGsdMOUuP0UuY3WhWDfo FSE1PMIpOOWhBBMvOUTtIE SoLKxxcxI8f0ymGLStoRIk SDS2GItchJDePISaNMBoBT xgLnNCUkRwDeX4NOk4TlLk RaX9ASa6HKNOFwWdZwBhUu XkGbN0FJFwWXo8AYc5WFnF KvI5JCx6SGS5FUAyCBZsVJ vtOWm4CXMsDJbqzDKpFZLt XEGvHJfsQGmoH22vrQexyU 6fVsXoJHABRoCUwiFau4Pi PLTpN6i8VcclKYUnWeCnXB QQktAiXL1yQFKccHg0JOQx fp2ygjOno43ujXa0LUAti8 3cyDycGBPOtoErj5XoYXAh H9v6RA1av8SfS3XzuRx3NG grofOhJRRmcTKnwBDrO34x EJHkgaKePS22TAEwXEUzKz Gzu2ocFQUga5ArBQRtUQV6 yHZfRkfglHJmALC4wHCmqO 5dOT1dhoegbv5zZS2wRF1q xzvixUCzS7BzR5ibpYTtvF ltxoYhs6Jlrc1xeIfwJUmd bT4lGONyJZJkLq87MUZetA Tlob3ssAJuv2ZpCRQpaaWw pTn4EJYwhK2xjAHhZIZ4ZR RyLiBOYWdpIHRvIERyLiBU yC5byQSlywEpdyKMCiAtk0 YgQRAtQmBBLYYvwuL0JuJg XjXqPvU9RUJwrLHkELZ8RG 0bkMtpRHPkB7JhF0XoocE0 XHBhcn0= MICROSCOPIC DESCRIPTION a2henNOeDTNwmMY1XqTeVC (test code = 3371) Hwd2psl0NkrDYbbWKtKZvq oNZghoIuch46jWV2rL43IX 3yXTOnPwS9GOVktlW1Nyb0 PSXrRZKbfSUiZ249z3jlp0 vkmlOidZI9sRvtMVYmiluc CbW0VAizYFAedwxyDWl8QU dhLWIlmVW3YPMccYLrR7Ng KCEpWE7vvph0NKC5WCpxCH UpSeU9XINtbDBjNAHweIik KMwkx793DEK1VaXzWTNfto CfzWqpaR1hIzGyWXXYFKZe DKHgxhNzpm7cFU7gzVWwmI == Gross assessment was [facility] performed at (test code [facility], = 2777) Department of Pathology, [address] [place] [id number], Technical component was [facility] performed at (Formerly [facility], = 2778) Department of Pathology, [address] [place] [address], Professional component [facility] was performed at ([facility], code = 2779) Department of Pathology, [address] [place] [address], [facility] CampusTissue [id number] 12:49:50 Test Item Value Reference Range Interpretation Comments Case Report (test code Surgical Pathology = 104) Report Case: [id number] Authorizing Provider: Duglas Mariee MD Collected: 04/04/2022 01:27 PM Ordering Location: [facility] Received: 04/04/2022 01:45 PM SERVICES Pathologist: Valerie Lorenzana MD Specimens: A) - Lymph Node, Oak lymph node #1 - 6,100 B) - Breast, Right, Right mastectomy, short stitch superior, long stitch lateral C) - Breast, Left, Left mastectomy, short stitch superior, long stitch lateral DIAGNOSIS (test code = [id number] 3220) FuZzEwMzNcZnRuYmpcdWMx IHtccnRmMVxlcGljOTYwMl uwxiRoYMYclKYwR7Maptyx XPuwND8lWB1xyNsjwOAbzZ SdUNXvVmObx3ufx327yQLa b1rrOHQNqfyipZf1bNjfK0 7bq8H1ZxfsR45qlXOcXEM7 QXZyHFSljBFmQQXmKGD1CW MoaVUdN5jdOVNyJM8ymnnc QMciHRpiSZQrxVL7QAQwhV WiS1OsNRSyVGouHKViygx2 OcDcLj1mhTSjzTykPQvpEN XkJVUfNYkjFMZsFxChJD9N HgSYAJtTBGZOMV3VFWHMRP MgRklOQUxJWkVEIERVUklO ArYWH5eFJJpABKQYCm3MMM RVUkVTLiBUSEVSRSBNQVkg DpAuV19MCDNNRNSLILGDF9 9RLCgMQAAMMA3QSPYQP1DW MFDYOB0NSNzEQAdaM21JJO FEEO5JHLfmA21RIlIEZDqU IyIfRE4HT8PWS1HBTKnWCQ TTAK7MFuIDGB8SZiERBJPZ UYZDGI8lFIVHCo2VSWZWGn XZQSVtY7JHUR3BZOEZIfIB I6PqJBfUQdFMTBMHOvWHY3 JZIElTIDIxMDgzMDEuIFRI EAXQB2QXXtORMYVNMCGPTL 5NOuBpGE3lGWtGUcTLGTMU LI7YKZQYHoFOSAZLECFzXL XnWBdJGGWLBfIJQECFSM0A JF9loMMzgBrovaXyHWyoy2 GdRAobGKWhQC1tvFujOOAm XH0kTICyX1dvpZ3xswx6Vb YuJTUkMdA7NRSgdvX9Mxt4 UFDfYSsur2uxs3ZvGTVsJE z0qOetZhOcVIWaz0kkhqTw ZmNoYXJzZXQwIEFyaWFsO3 33w6qgu8ayydWonQO0YLUl SNW2YLldwkRgmiK8HKcaiH RmKnU3OAbhggLfVCzpjvMk dfDsBoe7WPPpU803OJT8oL ecf6nzONJ4DWVbQKBgQxNw Hc8piXUtG052FDClQUPLPH WobBm6MTRklqQwkmIrdQVG n994G489d2bbFOZubhQcdU sAvkbvl7xqL863GYMthVIv ixLoCgGuCDPgeFPdxBO1DS JwUN8gnoanQVnxWVvyKEQd xzF0DMBueRRiU9SpYHNaQM 7wemieRHG3ENmuKXHhAKU0 GbDiRRGbv3Lmhsi6LwRgls 0oav85LXI8g1CmkZusKUW8 ALU2AqYrZw4ddTLvLJItCM 8mRgGlmUKdCRNtgo06qBiq LVooOIM0QTIpxdHat5Hoi8 xoRjRgskOjQ3ouF2QhFEEe WJFuIZIzCtPhwlWvr7Uje7 WxuUZklBr2d2brLWZvKBDj pYnmw6gnAFQ1KVTazLYnW2 cdeK1oUJIhUS2amkjux5ho FCljBZqdQGHzvLM4ciX0ZS DgpIWkI1GajJ8pCWIeGHhy TUJjxxf6XjYrTt4agFLdqZ cyMFxzYmtwYWdlXHBnbmNv bnRccGduZGVjXHBsYWluXH BsYWluXGYwXGZzMjRccWxc bGFuZzEwMzNcaGljaFxmMV inHpAiBQSyATirP5mkYsCy LdWbDla3SRVbuSNyAUFqXt q3HGXqcIJgQAWSlVkfgW6r JOKswBvgfG1hcQR9VXDzft MrzJXDzU2cZRPQuG4iJpO3 LcVgHeR6HJS2LKUejAHtoN 0= CPT Code(s) (test code d5uvgFYsWYGchOS4KoUuJP = 3357) Ign8cde0JmrKNedQHkVKkm gMDlgeUinf35mJA4fL95AC 6cKPRrGqM2JREcsdN4Ywx9 SRMsQHKxuISjJ506n0zwi2 xkzkLmjSR9uVidMYOjajlt UdO3FJodLLMjpesyVCo3CV uuSNFrvZK9LIWkbVVcG3Md ZEXrEF9bjqt4OXK8EUhpZF KrSoK7ZCQrpAFkQTEkaKgf HXrnl992VBI7IyKyRTVaeo AfyBpqcS3cRlJlLBIDNoZ0 WLKxYpO0MTYudXMvUPKzYJ a7MuT2RZskXGgtTYbgFheh hYDsMrJ2NNP9VgC7OQO3KF w3AgKuMBzsXNqvRRRwIs3q ODgzMDcgeCAxXHBhcn0= CLINICAL HISTORY (test s3mzvNWwKKDlrUM5ZgXgML code = 3356) Lja4kpd3OxqQOpwOBrFJjb rTMmkdKmrk50yAP5vV48BL 7gAGUoUoS5PCEmbsP1Vqd3 QNVmPHWeeKEiS005w8cga6 tvqgXkzWZ0hRflLNZnovzi AoE4USeeFFMxrjtnZJy7CY gdALBsmKY2YLSanJQiT9Ug IXVzKK7clkx1ALF2YTmdCI FmCjM7DRMdxWFqOTDekHns BKaor415JUA2AuIwDTRzvn MbuQmdjL9yCfGoVQDQEIYr t8Zrzn4iXIAoPVIyijLueQ FyfQ== SPECIMEN SOURCE (test x0omgKUxHCWtyKX3WfRvSF code = 3377) Yis3kia1LfbPIvkIUuPSxw kGHyfkRibk39cAM4zJ90CQ 1uKUUmByN8VRZtoiQ7Wez8 LMGlMMWjeKSiP097m0ugb3 wskeErcAE9dJumXLBoanoq QkX0VMdxITIotervQMw1ZS czGLVinMG0MNMeaUDpH3Qx ZOAgTT3jpjo7YSR3SUovXR ZtPuH4PHFezGJxQLZebGhr OBsrs281XFK9RvEjUUPefd VehQxfxK3rJtTyGGGMSGRb n7Zlxi9kLQDbZTPvyjGjaZ FyfQ== GROSS DESCRIPTION (test y1sigWHmDPJakLOCBFEbX5 code = 3834930000) pwjqGrXJRpwDZwC4Ydgegh IIqgSA1wML3qdIlctVGszV SkDE0EJHGvIjPjZRGzmLNm aiRqFcIoFUJoePOsjRK5AK GqHZ5gpvzzGJiaZJciETXb fyE4UPHlxTJfT8KuNFYbUR 6gibegAID8BBwscO7vspUQ MvfbGs3glGKsbSgcBpKpIg NoYXJzZXQwXGZuaWwgQXJp FTr2wD8QIgkqWAD5ZAQGFi wvOLOxZV6Zg9aqATYhhCUw BFZ8SYudeJRxBWAtTHQpUN s8HNKzTWgdxFFbWL7vfPgx FebnnTmip1HeuPYoKQfqZM MuYUKlRUneIYEwRI4HHqTs WZCaDAj6OfZkWOh1BPi4EM 4UPbEtXFYvGAHxDfB2MYNh JDt4DBmcDE8HPGRbOAApGA B7SpM9KAP5NROhREQuDzHe XGYgQXJpYWwgXFxmbCBcXG 2kiLcahSWsqqANSyMVbM8i qODOw5ZdBxcoHXYuUGmdPA WvQ11rh3NUe8NkXK0MZSo0 xwIulgdhbI6aPRHknyYwPR mswZNwN0dwGlTcKULHJSWd g6Uahp1cIVVsGMDvrlYZRh xwbGFpblxlcGljTmVzdERv VrEdhXbmgF50NJQimAApGZ H1KS0qWCLnesvaQUXtYXQc LEX7ZQzziC69qRImDSQqCI IwfSSxtJ0Ig7qhSOMrkVRe QRH5KTsrnHZmFAMsZVPqPE xmZmKfG8MUBCUeLDL2Hypr VRNbXRm7LJefZ6XVDHYxZW KqZvL0CdwvRqW3RVh1HHQP Ec0hUxT5VSPnYNPlLKG5EU V8ZPjxnHXuDQimPuNUyzer zMUkKJKqUWyscpT7MSVoQO AeoLbkzZ5yLs8mOiQxFKP3 WQABgNbcfZ6zcYBwVM0OYB TcxXIKBFH8OW5iIZMEHwju vDBoVBAjyExrQVireY0lMN 4EVZs8axHtZPIuZtZyW9Eo SYRsEN0sLFTiiyPoa3S1CQ izaDytbE8xNXXaM06ho8LE u9BaUEMiIMmlv4wrvBmuz0 VjdGVuZFxwYXJccGFyZFxz rP0dUrBhd6qwkTe1GMnztq F4EIWycs4BQnsbWrpotNpw w6AnhFGmUUsgPGEfDCYoCI yfBJXlFB1HPeBuOJBhRFp7 PvSfHIm8NIg9CP8FYpWiEI OmHXFxBbn1NQOfSSv7IAuz QO7HRPQoFQXzJJK2ZzS4QX T2BRUjYBTaZpAmVRIkPKBb JPiqTRamfYFuWD1vxStyew K8HHMqYRqrYQIlWDYaGQPi cFnpDPLtoO8fvFWnCL6JXZ OjbTARFPZ2AM5eQTMVFafm yETiQZEhePahOOysdZ7tLB 0BVTp1fxTqVVUoJgVhA2Fd IXBkZH0lRISfnyWgd0W1KD wdpShgwD8oVODgV52ay8TF y1XeMMDgYTuad6guqKwcp7 VjdGVuZFxwYXJccGFyZFxz nQ6gXeNnm8rwhVt5TOufod O0QMMsoy8HMqirsT5xQiId o8bixDp5DNUEQnyjueJ9h9 ewqZlhp3NhvIXoEX1VTm4= INTRAOPERATIVE c1xrpCVxDQUxbJB8KqLxZA CONSULTATION (test code Scg1qvd8PyzYJnvDFgLTqd = [id number]) hGNmwiPpxf88mHQ2cB22OR 2aUHCcRtM4GGNyihQ2Wqj3 GRMtOHKxxSGwT376d1drr4 xsexGarMX3wIcaPZPucjpm RdT1XNgeVGFelrrjSQj0CF nsKNBcnHN2YFThlXRoL6Cw ECNpYI6pslc9XIZ5BRwzKM KdKmD6GHBsmBUaOCYllGjl HQsfx328WKM2DjZsCPHeew O0DVxfGPHaB4AbK3TyDIyi KVG6KXWjCRZzRLZgFYGcAD JpJIniqyG8q9gjEPYkoJUh ZGY0COopjHDeGUIsARZiEW wnUwBSVsAhEzI7APu1WnQb WsO3GUk4CSDSQtNqXeTmEe LwPfW7XJZlIBb0KLh6HVbP YdG2DWm9OEM4XREzBHBwQE xyLQm1OAYyKMxueVYfTWAr WBLeMUtvKTggQ92lmPsrnJ 1sXkJcYFBVFqGKcrDxn0Kb ZCMzO6e9MzwpPGIgRvJvWR PTnaQnQO5aYIVmpKu9TTAu if7rmtOiw14mrDj6YGUik2 7haImvLWWFduAxw7IkTRHu H9s9IL0wz7UgP9XpmCq2JC cpnnRlPQBedKWxgLOaH32w WRUizsAtKN50DTZuBTFmEc Gly3bxPTLqr2CoJCEsOKG6 uJOzEmkprIEuKXN8oJSyeO 8rYD4zqctxhf4yIV8gOK8t qfquxFByH4IrY1gwpCYtdO shlgAyc8Uigp5oeJpeTArd bQ9tMGWkMUYmOa12AGIqwC Lygn8zmKEre3TbXJHgkdEr sPn5HXPjiQ4gaSKpKEP4VW RyLiBOYWdpIHRvIERyLiBU aG7jcWAxotXlapQRMrOlg4 QzFJZoVdOWTIOooaU8BaHr BrCkDpE8SYHcmNOmJLD4ZA 5fjLrvTPWjU5KoH8GutiH1 XHBhcn0= MICROSCOPIC DESCRIPTION g4mknPFyJBPctBJ6ZyQsZC (test code = 3371) Irx4cui5RzbCZbvGDrALlx cOZcqzJmon24aWK5zC13AM 1zPPOjAiS4BEBixkF3Min9 TNGtJGFdxTFdI926l5bhs1 stviLigML4dEawAFBuqzdn CaX1LGdlIGFmyuamAQd5LO iqSUMlpOM7OMBeaXCgL8Fw CMQmWX3vzau5XWP8SSnbEO UwXiG1TTBlyPDnSZTqfZnb VPfba027EUF9SsJgUBBrrt PhnMefdQ8qJhSgKWLSLOEy GBBbpoStfp4rDH8bqIBfvS == Gross assessment was [facility] performed at (Formerly [facility], = 2777) Department of Pathology, [address] [place] [address], Technical component was [facility] performed at ([facility], = 2778) Department of Pathology, [address] [place] [address], Professional component [facility] was performed at ([facility], code = 2779) Department of Pathology, [address] [place] [address], [facility] [id number] 12:49:50Surgical Pathology Report Case: [id number] Authorizing Provider: Duglas Mariee MD Collected: 04/04/2022 01:27 PM Ordering Location: [facility] Received: 04/04/2022 01:45 PM SERVICES Pathologist: Valerie Lorenzana MD Specimens: A) - Lymph Node, Oak lymph node #1 - 6,100 B) - Breast, Right, Right mastectomy, short stitch superior, long stitch lateral C) - Breast, Left, Left mastectomy, short stitch superior, long stitch lateral A-C. THIS REPORT WAS FINALIZED DURING DOWNTIME PROCEDURES. THERE MAY BE SOME VARIATIONS IN REPORT FORMATTING WITH SOME MANUAL CORRECTIONS. MICROSCOPIC EXAMINATIONS HAVE BEEN PERFORMED. THE CAP NUMBER FOR THIS LABORATORY IS [id number]. THE SCANNED ATTACHMENT TO THIS CASE NUMBER SERVES THE FINAL REPORT. Signing Pathologist Direct Phone Line: [phone]. 40456 x 1B. 18634 x 1; 70666 x 1; 13899 x 1; 96993 x 1C. 71693 x 1See scanned reportSee scanned reportA. Lymph Node.Seescanned reportB. Breast, Right.See scanned reportC. Breast, Left.See scanned reportB. Breast, Right.I ntraoperative gross consultationBreast, right mastectomy:-Clip x1 cm, adjacent to fibrosis close to superficial superior margin. No obvious calcifications seen.The above diagnosis was verbally reportedby Dr. Lorenzana to Dr. Mariee in OR for at 2 PM on 2A-C. Performed.[facility], Department of Pathology, [address] [place] [address], [facility], Department of Pathology, [address] [place] [address], [facility], Department of Pathology, [address] [place] [address], [facility] [employer] [id number] 11:13:16 Test Item Value Reference Range Interpretation Comments SODIUM (BEAKER) 136 meq/L 136-145 (test code = 381) POTASSIUM 4.7 meq/L 3.5-5.1 Specimen modera tely (BEAKER) (test hemolyzed code = 379) CHLORIDE (BEAKER) 106 meq/L 98-107 (test code = 382) CO2 (BEAKER) 17 meq/L 22-29 L (test code = 355) BLOOD UREA 20 mg/dL 7-21 NITROGEN (BEAKER) (test code = 354) CREATININE 0.64 mg/dL 0.57-1.25 Specimen modera tely (BEAKER) (test hemolyzed code = 358) GLUCOSE RANDOM 86 mg/dL 70-105 (BEAKER) (test code = 652) CALCIUM (BEAKER) 9.6 mg/dL 8.4-10.2 (test code = 697) EGFR (BEAKER) 92 Interpretatio n of eGFR (test code = mL/min/1.73 values Stage De scription 1092) sq m Result G1 Ariella l or high >=90 G2 Mildly decreased 60-89 G3a Mildl y to moderately 45-5 9 G3b Moderately to s everely 30-44 G4 Severl y decreased 15-29 G5 Kidney failure <15Reported eGF R is based on the CKD-EPI 2020 equation that d oes not use a race coefficientEsti mated GFR is not as accur ate as Creatinine Yumiko kulkarni in predicting glom erular filtration rate . Estimated GFR is not appl icable for dialysis patien ts Quality Control Operator ID - [id number] 10:50:32 Test Item Value Reference Range Interpretation Comments HEMOGLOBIN (BEAKER) (test code = 11.8 GM/DL 11.2-15.7 410) Quality Control Operator ID - [id number], [id number] 10:23:00Unlisted Reason for Exam - Click Yes and Enter Reason Below->YesUnlisted Reason for Exam->NEUROENDOCRINE TUMORIs this for enterography?->YesWill this procedure require oral contrast?->NoCH[facility] : 1945 Sex: FAddendum BeginsREPORT STATUS:A Volumen was administered orally. Exams performed using enterography protocol. Signed: Jennifer Birminghameport Verified Date/Time: 03/03/2022 10:23:58 Reading Location: [address] Ortho Consult Reading RoomAddendum EndsFINAL REPORT CT ofthe abdomen and pelvis, with contrast Clinical History: Unlisted Reason for ExamNEUROENDOCRINE TUMORTechnique: CT of the abdomen and pelvis is performed with intravenous contrast administration. This exam was performed according to our departmental dose optimization program which includes automated exposure control, adjustment of the mA and/or kV according to patient's size and/or use of iterative re constructive technique. Comparison Film: MRI dated January 21, 2022 Discussion: Visualized lower thoraxis unremarkable. A few small cysts are present in the liver. No mass lesion is identified. No biliary ductal dilatation. Gallbladder is unremarkable. The spleen, pancreas, and adrenal glands are unremarkable. In the right lower pole, there is a 1.4 cm lesion, enhancement is better seen on prior MRI. Three subcentimeter hypodensities in the right kidney are too small to definitively characterize, likely cysts. There are a few punctate nonobstructive stones in the left kidney. There are left parapelvic cysts. No bowel obstruction, or abnormal bowel wall thickening. There is a moderate to large amountof fecal content throughout the colon, suggestive of constipation. No pericecal inflammatory change.In the pelvis, bladder is normal. Uterus is absent. No adnexal mass. No ascites, free air or lymphadenopathy. Impression: 1.4 cm lesion in lower pole of the right kidney is suspicious for neoplasm There are a few punctate nonobstructive stones in the left kidney. Findings suggest constipation. Status post hysterectomy. Signed: Jennifer Birminghameport Verified Date/Time: 02/19/2022 10:20:02 Reading Location: [address] Ortho Consult Reading Room MR, ABDOMEN, WITHOUT / WITH IV [id number] 12:30:00Unlisted Reason for Exam - Click Yes and Enter Reason Below->YesUnlisted Reason for Exam->neuro endocrine tumorAnesthesia:->NoneDoes the patient have an implanted electronic device?->NoCH[facility] : 1945 Sex: FFINAL REPORT TECHNIQUE: MRI of the abdomen and pelvis WITHOUT and WITH intravenouscontrast. INDICATION: Unlisted Reason for Examneuroendocrine tumor. COMPARISON: PET/CT from 11/21/2021. FINDINGS: Evaluation on postcontrast imaging is suboptimal due to motion artifact. LOWER THORAX: Unremarkable. LIVER: No hepatic signal abnormality. A few cysts measure up to 1.2 cm in segment VII. Th ere is a rounded area of hyperenhancement along the superior margin of the segment VII cyst which measures 1.5 cm on delayed phase image 25 is not seen on other sequences.BILIARY: Gallbladder is unremarkable. No biliary ductal dilatation or filling defect.SPLEEN: No splenomegaly.PANCREAS: No focal masses or ductal dilatation. ADRENALS: No adrenal nodules.KIDNEYS/URETERS: No hydronephrosis. There are several parapelvic left renal cysts. No follow-up imaging is recommended. A right lower pole enhancing renal mass measures 1.4 cm. A likely right simple renal cyst measures 0.8 cm. PERITONEUM/RETROPERITONEUM: No free fluid.LYMPH NODES: No lymphadenopathy.VESSELS: Unremarkable. GI TRACT: Large amount ofstool in the colon. No wall thickening. PELVIC ORGANS/BLADDER: Prior hysterectomy BONES AND SOFT TISSUES: There is bilateral, symmetric restricted diffusion in the acetabulum from an indeterminate cause. However, this considered unlikely to be due to malignancy given the symmetrical appearance. This could be due to a stress reaction.. IMPRESSION: Evaluation is suboptimal due to motion artifact. 1.No definite small bowel tumor is seen. However, the motion artifact makes evaluation markedly suboptimal. Consider a CT enterography for further evaluation given that CT is less susceptible to motion artifact. 2.A right lower pole renal mass measures 1.4 cm and is concerning for renal cell carcinoma. Given the motion artifact, evaluation is suboptimal. However, no invasion of the renal collecting system,renal sinus fat, or Gerota's fascia is seen. 3.There is a rounded area of delayed phase hyperenhancement along the anterior margin of the segment VII liver cyst. This is indeterminate, but a hemangiomais possible. A follow-up MRI of the abdomen with and without intravenous contrast is recommended in six months for further evaluation and confirmation of stability Signed: Dennis Cortez MDRy[facility] Verified Date/Time: 01/25/2022 12:30:39 MR, PELVIS, WITHOUT / WITH IV [id number] 12:30:00Unlisted Reason for Exam - Click Yes and Enter Reason Below->YesUnlisted Reason for Exam->neuroendocrine tumorAnesthesia:->NoneDoes the patient have an implanted electronic device?->No [facility] : 1945 Sex: FFINAL REPORT TECHNIQUE: MRI of the abdomen and pelvis WITHOUT and WITH intravenouscontrast. INDICATION: Unlisted Reason for Examneuroendocrine tumor. COMPARISON: PET/CT from 11/21/2021. FINDINGS: Evaluation on postcontrast imaging is suboptimal due to motion artifact. LOWER THORAX: Unremarkable. LIVER: No hepatic signal abnormality. A few cysts measure up to 1.2 cm in segment VII. Th ere is a rounded area of hyperenhancement along the superior margin of the segment VII cyst which measures 1.5 cm on delayed phase image 25 is not seen on other sequences.BILIARY: Gallbladder is unremarkable. No biliary ductal dilatation or filling defect.SPLEEN: No splenomegaly.PANCREAS: No focal masses or ductal dilatation. ADRENALS: No adrenal nodules.KIDNEYS/URETERS: No hydronephrosis. There are several parapelvic left renal cysts. No follow-up imaging is recommended. A right lower pole enhancing renal mass measures 1.4 cm. A likely right simple renal cyst measures 0.8 cm. PERITONEUM/RETROPERITONEUM: No free fluid.LYMPH NODES: No lymphadenopathy.VESSELS: Unremarkable. GI TRACT: Large amount ofstool in the colon. No wall thickening. PELVIC ORGANS/BLADDER: Prior hysterectomy BONES AND SOFT TISSUES: There is bilateral, symmetric restricted diffusion in the acetabulum from an indeterminate cause. However, this considered unlikely to be due to malignancy given the symmetrical appearance. This could be due to a stress reaction.. IMPRESSION: Evaluation is suboptimal due to motion artifact. 1.No definite small bowel tumor is seen. However, the motion artifact makes evaluation markedly suboptimal. Consider a CT enterography for further evaluation given that CT is less susceptible to motion artifact. 2.A right lower pole renal mass measures 1.4 cm and is concerning for renal cell carcinoma. Given the motion artifact, evaluation is suboptimal. However, no invasion of the renal collecting system,renal sinus fat, or Gerota's fascia is seen. 3.There is a rounded area of delayed phase hyperenhancement along the anterior margin of the segment VII liver cyst. This is indeterminate, but a hemangiomais possible. A follow-up MRI of the abdomen with and without intravenous contrast is recommended in six months for further evaluation and confirmation of stability Signed: Dennis Cortez MDReport Verified Date/Time: 01/25/2022 12:30:39 RAD, BONE DENSITY [id number] 09:10:00Reason for Exam:- >osteopenia, unspecificed location [facility] : 1945 Sex: FFINAL REPORT Exam: Bone mineral density study. History: Osteopenia. Comparison: None Discussion: Evaluation of the left hip and lumbar spine was performed utilizing DEXA Hologic bone densitometer. The study is technically adequate. Left hip total bone mineral density: 0.732gm/cm2, T-score is -1.7, Z- score is 0.1. Left hip femoral neck bone mineral density: 0.622gm/cm2, T-score is -2.0, Z-score is zero. Lumbar spine total bone mineral density:0.854gm/cm2, T-score is-1.8, Z-score is 0.6. Impression:1. Osteopenia of the left hip, fracture risk is increased2. Osteopenia of the lumbar spine, fracture risk is increased Least significant change (LSC) for bone mineral density as providedby lidder is 0.023 g/cm2 for lumbar spine and 0.027 g/cm2 for total hip. 10 - year fracture risk per WHO Fracture Risk Assessment Tool (FRAX) for:Major osteoporotic fracture is 11.0%Hip fracture is 3.1%The above fracture probability is calculated for an untreated patient. Fracture probably may belower if the patient has received treatment. All treatment decisions require clinical judgment and consideration of individual patient factors, including patient preferences, comorbidities, previous drug use and risk factors not captured in the FRAX model (e.g. frailty, falls, vitamin D deficiency, increased bone turnover, interval significant decline in BMD). The patient's fracture risk is compared to an age-matched control. Medical evaluation for secondary causes of low bone bone mineral density may be appropriate. Correlate clinically for the necessity and timing of the next bone mineral densitystudy. Signed: Lyn Webb Verified Date/Time: 11/12/2021 09:10:46 Reading Location: [facility] Room [address] [place] [address] TISSUE [id number] 14:06:09Surgical Pathology Report Case: [id number] Authorizing Provider: Jessie Estrada MD Collected: 10/22/2021 03:46 PM Ordering Location: [facility] Received: 10/22/2021 03:49 PM SERVICES Pathologist: [...] CARCINOMA (0/2)F. MESENTERIC NODULE, EXCISION: - METASTATIC WELL-DI FFERENTIATED NEUROENDOCRINE TUMOR, G1, (SEE COMMENT) - TUMOR SIZE: 1.3 CM IN GREATEST DIMENSION - ONE ADJACENT LYMPH NODE, NEGATIVE FOR CARCINOMA (0/1) Signing Pathologist Direct Phone Line: [phone] signed by Flavia Smith MD on 10/30/2021 at 2:06 PMPreliminaryresult electronically signed by Flavia Smith MD on [...] be considered in isolation, and clinical correlation withgenetic counseling is recommended to assess the need for germline testing.F. Microscopically, section from the mesenteric nodule shows a well-differentiated neuroendocrine tumor involving soft tissue. An adjacent lymph node is identified. The neoplastic cells are relatively uniform in size and form nests, trabecular, and insular patterns. The neoplastic cells have round nuclei, eosinophilic cytoplasm, and kbfj-ksb-joiycc chromatin, characteristic of a neuroendocrine tumor. Mitotic figure is rare in the tumor (< 1/10 high-power field). No tumor necrosis is seen.The immunohistochemical stains showthat the neoplastic cells are diffusely positive AE1/AE3 cytokeratin, synaptophysin, chromogranin, and CDX-2. Ki-67 immunostain shows a low proliferative index (< 3%). The overall morphology and immunoprofile is consistent with a grade 1 well- differentiated neuroendocrine tumor. The CDX-2 staining suggests a primary arising from the mid-gut epithelium. Clinical correlation is necessary to determine the primary site. OVARY or FALLOPIAN TUBE or PRIMARY PERITONEUMOVARY OR FALLOPIAN TUBE OR PRIMARY PERITONEUM - All [id number] Edition - Protocol posted: 1SPECIMEN Procedure: Total hysterectomy and bilateral salpingo- oophorectomy Procedure: Omentectomy Procedure: Mesentric nodule excision Hys terectomy Type: Laparoscopic Specimen Integrity: Left Ovary Integrity: Per OP note, the mass was morcellated within the bag without spillage. 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 61268 ; 70465; 98853; 23273 x7B. 81718S. 47831L. 29454J. 65681G. 82424; 04858; 68365; 09702 x3A. Soft Tissue, Other.A. Received fresh for [...] section is submitted for frozen analysis and business process representative sections are submitted in cassettes [id number].Section code:A2-A5: Gluer Machine Operator sections of tissue with 1 section percassetteA6-A15: Gluer Machine Operator section soft tissue with 2 sections per [...] adnexa consists of a 4.3 x 0.5 cmnonfimbriated fallopian tube. The fallopian tube is serially sectioned to display a pinpoint lumen and no lesions. Gluer Machine Operator sections are submitted.Ink code:Blue-anterior uterus and cervixBlack-posterior uterus and cervixSection code: B1-B4: Full-thickness section of anterior uterus from fundus to cervixB5-B8: Full-thickness section of posterior uterus from fundus to cervixB9-B13: Representativesections of duron whorled [id number] fallopian tube fimbria bisected en mdddP24-rgufagkyxizcbs sections of right fallopian lbmsY50-J77: right ovary cajphnhjY21-bgrmcrmdhzcrfg section of left fallopiantubeJAC. Omentum.C. Received in formalin labeled with patient's name, accession number and "omentum"is a 0.5 cm yellow strip of fatty tissue. Specimen is serially sectioned to display no masses or nodules. [employer] sections are submitted in cassettes C1-C4.D. Lymph [...] possible whole lymph node in each cassetteE3-remainder oftissueF. Mesenteric.F. Received in formalin labeled with patient's name, accession number and "mesenteric" is a 1.3 x 1 x 0.5 cm duron, ovoid, firm piece of tissue. The external surface is smooth and chu y. Specimen is inked and bisected to display a duron-white soft homogenous cut surface. Specimen is submitted entirely in cassette F1.A. Soft Tissue, Other.FS A1: OVARY, LEFT, EXCISION:- FAVOR ENDOMETRIOID CARCINOMAResults reported to Dr. Estrada noted at 4:13 PMA. Sections of the [...] morular metaplasia. The nuclear morphology is uniformly lowgrade. The immunohistochemical stains show that the neoplastic cells are positive for CK7 (patchy), PAX-8, ER, and WY. All of these findings support the above [...] evaluated Immunohistochemistry technical testing was performed at [facility], Pathology Laboratory where it was developed and its performance characteristics were determined. It has not been cleared orapproved by the U.S. Food and Drug Administration. The FDA has determined that such clearance or approval is not necessary. The test is used for clinical purposes. It should not be regarded as investigational or for research. This laboratory is certified under the Clinical Laboratory Improvement Amendments of 1988 (CLIA-88) as qualified to perform high complexity clinical laboratory testing.[id number] 19:22:21 Test Item Value Reference Range Interpretation Comments Case Report (test code Medical Cytology Report = 104) Case: [id number] Authorizing Provider: Jessie Estrada MD Collected: 10/22/2021 03:35 PM Ordering Location: [facility] Received: 10/22/2021 03:46 PM SERVICES Pathologist: Mikel Mark MD Specimen: Pelvic DIAGNOSIS (test code = i9yrnCArGKZjl5bpQERwdYA 3220) uZzEwMzNcZnRuYmpcdWMxIH tccnRmMVxlcGljOTYwMVxhb kRbCWZrlCXbN4MonszlTQwq GN8zJQ1rjDbduCNvgZZbUVC mKfZng8wxb212oNDae1cnQD PCkwudqDv7yIzrC27vh0A8J pfnF65adNYjHPU4RVAjHDQb eUDfJVDbWIK2RVOavVAlQ3v zLZDtPI0xvfaoHGdjZYdnRZ OknCM7COAdrQPwW7ChUMEqV LciUJDzmbg3OrJpWg1hsSRd eTcyMFxwYXJkXHBsYWluXGZ cCnBaCTUJSnkXIOjNI3lYHs jxERRCZM1CMHtYGpDZLnFrH 6GQONRIID1CRuk1DLpdbuCf ICAgLSBGRVcgQVRZUElDQUw yI7SCYEKqF5HSZurlGDXhOM LwSLUVMMLoB01QRLSNXOedO IK4h6idaPPiOUEmfLMtCLOp MFxhbnNpXGRlZmxhbmcxMDM sWKR5oeEaCITtSKjtSEAmHA ibDw9ijVZsoXmcCjDzCBByt 9qvcrUKqhateGm4u8prPKOs NyF0hJXrAItdF4htifWcfZH ySOGlAKi7jM73OQJklD2zjG YaQCbcakGsTiS1HRruUVZgG rJ9DBGkiPDjOLPmO0jzLNMe VYsoAJVfUIgkgDPbSDM8nUt fg5J6eTTeeVSqtMtkSuCuKq OwEtVPu3ZkHDx9mKhvG2IfJ AZyZsQ8iIJyRRBnXCbvQGYy CWZfnrM1hZ42UHmzvvL5sBE nn7Oxj24bq494eN1ezOUgCJ T9HHUmWDTolCSqHLZvBAT4Q KXhbVQyV0jrCVKpEX1zzmry UPjeQGolSXEfjQO8AJNtzRV qS4ZaEWPlBCmvYBUkpxz7Dg IoKl1taNVdzQrwVTiip3sgn 8ttfHBzCfv7LVKfZsBuYwfe CKxhc7Sah5gfWEGovg7xXDM 7eYLhfHgep9J1cRMhNMMjiV SqUIKkDZ7tuZDoLIGzfA4cf mxjXHBnYnJkcmhlYWRccGdi xyHcLm0keYwfUWS6UHauX4u rjU6bSmO0VRihI3fjfU7wWQ i2VKctZPXzsBX5hsN1UQVhi APzN9KqeW6mPWIrUS3zgex6 o1hzZJE6PLyzVHRyVuN9vhV 1KTFhdZAeXFKocLoxRYniy0 36SJQ2NlXoAGFgt5LoE9Pex SmvG51nhAywZ37sWGZgoEcl qT4jpEzdnR3eEuMrYoTsZSe irFywWL7qNDQjI3bfkCUhNJ AgTXZzW9caMmGhgZ9ilGgkZ YzyflVkRVCfQdy2ONJolHIp RTZjDiw4OSCbNLLtY96ydwj aXQF6uT9oc1anc3EuIJarOX L4OBAfm65qPXvjepD2KVpdS f4tBOAgDOk6GPsidLQxfX2= COMMENT (test code = f8ctaOYnOOSmqUG5EeBxVRL 3359) ik2ach8DrxBCqsRDdACfbwL FmxsEzul21hCD2qU28GU1sN ZRyLwO4SVStbsS6Pcf6DQPa USFecCGhC917r0qdo7hkfcK efCU2fFpwGBDongvhIlK2AR ueXZYmihlsHUr7ETurRJYrv BU5PQMteSUcJ4EjMXHzEM4q sbk6OFU8QHhdBWCvYyU1WUY qwRCuIADivWjqTJtue445OG P8TzAsBHCctxVwiIfldI6yF aGeVAOKxOQuZNjpDuHmAO97 hEUlTOphK8p9KFVbZIYrAR7 tZXRyaWFsIGNlbGxzIGZyb2 3zCQ2qj79qlAOhy5MdegshW B5ev3JisARmrcxus3Rkljnk ZF8rRWxsf1DexXvwBYs8WW2 hbGlnbmFudCBjZWxscyBmcm 9tIHBhdGllbnQncyBvdmFya LWtEVUtQG9fJQRyyZ4vMKHh FDKqo9AjnmCnrf3sDM6huXX oCMZsFGUqPKerWDTvnW4nre R1jWtkEEWvNDAkybadx1IwG GxhdGVyIHdpdGggdGhlIGNv swF5pmUifbXaZ3EoEICFZfH aRAGzRCSglmRiFX4iNAPwNL 9erZ5el1qduEJot6wvn0clF HBhcn0= CPT Code(s) (test code z4jrkTVhUATwnOZ4NbDmPYW = 3357) qh6ntf4OpcCDfhWDnGBigmA TfsaZvkk31uHC0mU22RE3fD FUsDnH4GHQexkP1Ewb2YDOn BRXfeYQjA054g8ijr8clgpG wpOY7rIrrQXMgfrmwMeW3FN vrZSDlqfeoUIl5ADkmXXGrh WU3PGPacJMxW6KnWRTdXW9m xez5BDU6ZYrzDVLhDlS3EWU vkESeFPCmyRjxGDhqq031JM P4YhXeFMRkqyAyvUgolL9nW eDtUFG6FTCpOJaiYFcoMDNy AXs7FjWaNwX0WWR9NZdbVQE 9 CLINICAL DATA (test k9pkrPQwGRZdkNO9JwNwVDR code = 3355) ws4gwj8CqlTQkfQAfEWftqH SnrcOymx44dCQ5bI67RQ5iZ MXtHeN9UYLtxjG4Aga6HZWf DJEjhQQcN070l4tfl1ubrgU dzWW1dYquCNZndkrbWdX4NR kmKBJyscssSIu3WPepBZIrd KJ7UGFftJXqP9NkHYRwIS8b mot2GPL2MEssWALiDwM7UBE bpSJkCVCknDruHUiuz084YC L3PnJzHBBxpjJajGkqlK4uD dXoHWKMlPL3yOAdwM2puXJy FUUjlo6lN21mvHjvlHrogP9 uxFOaKaMfYX1fgUKyIHY4v9 QuXHBhcn0= SPECIMEN SOURCE (test q2azpGMmRMHrhTW8YyWcVYC code = 3377) ql2onh0TeyGGnmIPqIIapbO LbklVedz47dIA5oM32MA5dH QOgHxR5HXXbabY1Ceb1VPTx XMJedJMoM617b9kmp3gyuoD biXI9hCcsHCUknfwdSxG3GR syOBVtkbluJBz2BFwdXAIrb DM8CZHmzAIlS0NbCKJdSJ0k lne7JVC5JBtdAYTfRsW7KCB eqONdNQPukEtqKIrro782IE C1TcZzXQNfprHbzNxfjP1sB nApWALQRScHXHLfH2JGJGmY O8slEUO4 GROSS DESCRIPTION m2onfYFgZVVnnFIWFOZxMyx (test code = fahInYRQioFCgB3OgwhjrZY [id number]) igXU1nLG4arKrmpFOobCNbP D4FIXBuZbKmXVHnbSTmaeHm RcOkNADwkVYqlFN5QFLwTI7 iczziLFgiFKdlXSVxyuM9MH HslYPvZ7ExLTOpIY3tnsjqC TQ8YRcprF0mxqSYFxkaNr4d dHRibHtcZjFcZmNoYXJzZXQ dRCEwiKkyVRUjBJh9qX5AMa wkXCU6WVELLnnjJNRlIX2Dz 8woEIGmoZAmBYC6FKtyyZCd SJWcFGBsGSg9SNXqDTxxbUB iQN9qtDatNlhqtMgsi8IcaE BcXGlkIDUxMDAyIFxcZGIgI B4MZuBnTSjGHxk7ACIqXmH7 IYr9PIQFUhKhTeXdYqabYcO 4AUEeMMb8MWx1OKyULmP1XH jwUzq9MQawQUIeMUIrIWl1M DIgXFxmIEFyaWFsIFxcZmwg DWkbK04kxDnwwP8hWZ3oZAU sdmljLlxwYXIgDQpcZXBpY0 5zy6HFl7SpXP7CKAf2jaJht whisM3gCHDcejMkBNecvPHf B7lhVnTeUWQVZOJmrWZpKVW 0MCBtbHMgbGlnaHQgeWVsbG 93IGZsdWlkOyBwcmVwYXJlZ WY8NFV9kG9blSqxjruaU2Ci dNEkiW1fghLyKYZgFKwms1f dc2Gsv43qPhMbLSNdgWKyIF BkyM6vKq4pkJYxsV1gWQNmR YT8UDPeNF5ql20gZMBnUhPw CfUzHg9OVDIaUMckXVNekAF WIDK4TO6jHIuzpALbzediQM RkQ3ZlZ0EgsaHxeVRfTNIua yQsn0pfSKK8SYCinLCqxVQe HwJwSduxNAI3LGcmy4jjGIZ 1XHNsbXVsdDAgDQpcZnMxNn juSYJzZ5MlE1WghrW1YVg9 MICROSCOPIC m7fmvQGzPDSagFB0InDjIHR DESCRIPTION (test code oj0uvu8BpzJKlhKPlHHmxkK = 3371) RtdkZugd99pMQ7iX77LM3rS RVaXcJ3UBTapqN2Yjz2AEFm RPQfaLWyY570l2boz8hqfsU ydUJ3qCecZSZpmwxbWlU2PY pkWEVqxzvrSDs5BSspICMou JW7INKhoMQvE7CdONEyPH6f vrq1OQS2TBazPQQjDlE7FTV fsZWcKFSkkYxkQJvmc633OR R5KsAtFIMsgcLqkBiyjO3aF kIxYMOKCRHgt2FsSOPrUSpl YXJ9 STATEMENT OF ADEQUACY Satisfactory (test code = 2757) SPECIAL STUDIES (test e2rihYDiDLBrmNW3VoZeHYT code = 3376) vp6vfn4LcaVThsCIoMMoluF JdenAfgr97bNU8qQ89UW6iC POfLuL0OOCxvwM5Clc5WDHh SQZbjDHtD845LZCyOLMuuZu efyw8yE75SXIbsW5nfRFlWY nustVoAPxrhvLdnrCaMjt9M OP0eGelTBDlwltaSiA7WQnf YWXcwpaqIBa5CEddUEQvuIQ 3TMMriKMzK4YtLKUoNC6ffr c8MRV4SOtvFCEkRaG7YNQan UUuXVXiuQncDMkdm982SJL9 KhNqLYMfemIjrSrguC3bTwG cZnMyMlxjZjEgVGhlIGludG BuySEskRN7bX4pMF4fIDTph CMiV8GkJSTsqgHvfDYyIKJ0 mCGopKGcEW5mMCqzqIHxp3f pl5SwU8eqpPwdqAI4OH1dJI UlLKDaWVekm7RvnD2mDwsiC WLxGQDAENpmTWWnTDZkk2a3 sFWlEGzyCPWtdWIaBVH7wUr sPLqhZ5JneMEhfGNsRRDgal Dfb6pyC3hnNRCeLHY1FB6jb bMmJxCoWT0bgF12n7Dfd76r i74ykF5pnQAqfdClI78iuNF jeXFdu2VgRZSnfwGfoPC7WM QoAMkcdruay5i3rSL1bHNtd TOjoIR5jNHogQItGZPAcQNt NKXpz975al8zQDWhvPFsjaH mlT3dZMdhrchhjNKjLF8pWN XwLLPlZUEqUI34wvExSP7yi MQlo2fjoiSpbYVrp5ZlfHJ7 BCRoeTPyhbggEi0zVX51EZK dIMvmmB9cbMDvcdVoXG0oWL 6oO3D2mHVnHYLaziQaf2kmA KqqFU1wFQGcrQrjArpdAWDg LWJmvrWizUU3MCNmyQPwQKX xbVEhLZhyuURdw7iir0GoP0 eocQvgvQB8YERaH6yyuYLny ZU4WLS1sX7tKLgobgAkEALi i5BdEFRrVBZrIiF9tF7cHFH 2WcHKkPtlJCX8ApF4YRraKN AgSY8wIVxmCQvyF8UwwQCeW FOBYDCgv4spK1psACAvb3Iu qF3yyOC9yHDpCZTclJM9HVL qGRR5HRydgHRkTOUnKZEhwU MocVOfLo0mcFUrT4DxX8hez fLezMEdqDV3sIQvGJdpqjXg GAB4UVFriL0pIZ9kCLIkeNV oYP3ptLAoFLIzBAUkKXAyVP Gzp9FxCUZskk80LDUtVtmxq PovPUWaCr8aCy8vCLUqyrKq AXP1DuMGVT8azmnfsQItqYp qdx9hDQxoUMVDLLMiASGeCI M5TODjmN0yXEL7fLB7PRG8T 9xbL1zgVQNpksCjHN3qDLDr iRLlalAeXAvyRC7txIXkXQO rc4LmjhmpJBOsUPI0NGA4WI ddVIJbTIVcZr7wJLGtdP1qJ 2NaZTT2aaAjv3ErUgIBoKOv qQ42xOVcgi60OBDlRTRhY5E yZGVkIGFzIGludmVzdGlnYX Cfk11nfRDdnaUuf4BucvUmI WElX8yqOCHddFZmoHLkw7Pi wC3qkPHpqoXfUBW5hOIqKZP vxL5oSJQheFdkSMUocG7rQ1 DdRGheNb6eTAWwfrttOT4lr t63MB6qnrTmCL3cefXyOS40 yoBtBkXdUGu0KUwQCVgRVKs 4KSBhcyBxdWFsaWZpZWQgdG 3mnVUpIt5nzBBccEaaQSApk QDnUVgubOsxR7xzxebvZKsl gLFax3RltE7dzYY2BBN8dV5 nLlxwYXJ9 Gross assessment was [facility] performed at ([facility], code = 2777) Department of Pathology, [address] [place] [id number], Technical component [facility] was performed at ([facility], code = 2778) Department of Pathology, [address] [place] [phone], Professional component [facility] was performed at ([facility], code = 2779) Department of Pathology, [address] [place] [id number], [facility]21 Test Item Value Reference Range Interpretation Comments Case Report (test code Medical Cytology Report = 104) Case: [id number] Authorizing Provider: Jessie Estrada MD Collected: 10/22/2021 03:35 PM Ordering Location: [facility] Received: 10/22/2021 03:46 PM SERVICES Pathologist: Mikel Mark MD Specimen: Pelvic DIAGNOSIS (test code = i6aukTHwAXMnp9znUQEkmYT 3220) uZzEwMzNcZnRuYmpcdWMxIH tccnRmMVxlcGljOTYwMVxhb kUdPXTxzATqG7JhqvuxXNtq BJ0sEE0rdBiryQYjpPJpQCB cJpYzl4cvz625iALyp9upHI CXuejgnUf5aPzqP65nf4O0E caoH38miTXaRUX9GUNfRQAr rMQqYAWzYTH9AULzxKPfG2e kJSAgPT2zfjvpAJhqCNwxOM NspJT9CWStzPUbF0HcQCAiL GegSFUyunb1MlHdVa2osKKv eTcyMFxwYXJkXHBsYWluXGZ qFcYxOAPNIbeNTNjWF2fLYi ylXKOFWG9WFDpCQrEORgWwV 3EOXWMEEG6LCgb0IMhfkfKm ICAgLSBGRVcgQVRZUElDQUw uE9SSSHCdK3FMHdjxULMeTZ YkWNQEZTLvQ15ITUSESKkdC BD6d1mkiZNwGRMvwJTbFBNk MFxhbnNpXGRlZmxhbmcxMDM aAGF0wvJfJBMnNLzoQCMfXL bnFe8cuHQtvMbsIyLsEKXgq 3qjysTKuqkniWc9t9ujCESp LoI3vXQlEJsqN0macxLnmAO nMGWlPDo9dJ22FJQruG8cyG KaFZmiutUbCdL6ZLecFDZyB yE1YASgqAYfPPHbL9puXFTh QPitIIMmOPfpqDNvPDA4gEt dy3K4cKXysLGmsBlxAeBcMd VvKrVRd4JxMKy9tHlnY7OaJ FLeMbH2jGOdJJQmNEhkYVKv TVArjwQ7vY19EXufnhW8oXP da3Tow71ky738pU8znWCvZU D2IVNcGQGyvJJnRDVnVFI2O MSjdLNbA8euZCYaKP0dhaxn XAdePBrwUFQjyGC0NEAquIO yM1MrMQVfEBvoAIGhext4Np FiEp5rtTDerYroTFkap0ffu 8xijAQnVry6NEXwXbJeVehc CCeof1Npr6odBJTvfo8oIJO 2gLRduRvqn1U2vLGuZCElyN MnXFLeNK0okXDtXFUvbH8kn mxjXHBnYnJkcmhlYWRccGdi wdWbYr6jlPsaQPV5AGmtC3d yxP2eTrT3SVxvL4dunZ1vYP j2EBkfFAGvaEY7fvM2BQWrj KHlT5SprO1jMAIlYM5bvil2 b6btVPZ8MRskUAEbJfC2ioO 4DQVgsXCkGZUmeUhzFCdeq7 33WCQ6IbByKKNgg1CsV3Eyo XtgY68uwHkcM32ySIGjsQvj xX2tpQnyxW4cCbMoTzFiNYn qnQfnOP0vTWVxY0zogUGkJY JzFEPhC3liIyCbtE7crVlgE TiazaDwJIAzNvg6HHCvbGJy XWWrBjs7OSAwCTHqN06qhyx eQSR6hY9mp7ojm9VuHJwyGB L5PLOoi48gBSxwcrY4HZpqB q3bGEYtYDs1WNcmvCAieT1= COMMENT (test code = e0uhbFVdAMTnsQD5XsUfSDW 3359) fu9zae5QjlZHnhCLlTPbzsM OwjxHavi42fMY5zB00JU1xX MZoJkP5GBWfpsB9Hoc6OPJc TTAbyDXqS371y7bfn9xztbZ llQB7qHhdZFZeyzshRiB3XM ncZGYfuhzpVKa9AFmnNFXcy QW3BYTcfCShI9ZdMUGwQC9n nid5NYQ0NVuhHVQmOdY9KQD twASdIKBrhGdgQGayo038NY D0DiNzLEYrnvSvbUpnpC7zO hScQEHFoJQrRDtjMwKzFF18 kRIvSNluN5b4KGSoECAeKQ9 tZXRyaWFsIGNlbGxzIGZyb2 6mWO5np93obMXtp8EwoydgN G5be9XmeHZqfbzhm6Daoyln UX8kYVgfx6QwcAcbRNv3UU6 hbGlnbmFudCBjZWxscyBmcm 9tIHBhdGllbnQncyBvdmFya VQbUBVdPF6lEQUenQ6xRBEd EUTwi5AmanElpk3tUE1lsCD aVFElLWWqZCcgQIOqbS7sbd I3fCpwVBBuQPLoshofw8QgW GxhdGVyIHdpdGggdGhlIGNv twR3avYdjbKbW9EmWALPSzU rHHCzJBRoebTgVN4fPKFtKQ 7epZ2yi9fxaVKxx9fpp7drI HBhcn0= CPT Code(s) (test code x5fxeIVbQBMzyET4YuVsJZX = 3357) jg0iqc3DriVTebMOwPLnjcO ZuczNmvc73dNU2uV82FZ7fM WIfLaM0WAGfstH6Ihw9VUZr UOCdvLReG252s7rdr1skvnE zpAZ7rJhpXIXuoybuRuG7FU wvTKOpzfypUBc3HFutWIYdw AH8WEHykRXfC7LzVRNiNG1q uln4AFN4PWokWEKiEaP7EKV slLMhDOCcdMsqEYiyh338PB R6MxXkKUSjngLuaFgopN2iT dOnVRD0TJJjEMxoECtaELAf PUd3ImElNgU2YUG5AHhoDCL 9 CLINICAL DATA (test h5neeAPzVVTrtJE6BtNvSPP code = 3355) hg9pey2HwiFCbcQHxVRksaF JtteInqj55lDT3bP64CZ1xH TTjLfS4GQVqijV5Bmh7UYRz XQKneNQaC130o2iwi8wccpW fiEJ9hYswERHzqalqDhG1WP jhPFVmbbsiTHi6VSybOIEce NJ8BWRctOJwL5KnSBBtIP5q qqr0WAH8WLtyDHWhZiE2VFT huVVxIMNibNdxEYumz808OH X9SdMoVVFepvHkwEjeiO3qX mBjKSUReDP4xIAlaX5mnKYs ZIPuiu0cJ65utJmhsCvbyR6 vrCCjJbDpXW2rbLRxRSC8w3 QuXHBhcn0= SPECIMEN SOURCE (test a6dtmQOlWPZtcPH3DpYtSMP code = 3377) lp4wyq4CnfBJniZEfVReuiC OfowQxgm86pPN5lV18UK9mA NLjBoL9VIYjcxJ5Boj4ZNKq WFYacAUdH551l3wkg4nutoK vjHW6zCwyMCEnjdzoSaG5LS tvGVExnpocOVy2WPiwYJIhu ZK5BCRjnXSiJ4XeDOKuNO5m exp5BWY9CVnkCRUjSxW6FCH qkQQpGQXezAmdYKalp583KY Z1XoWaTXAnezDinVpqmW9eE jHxIGWSDXtMPBAvZ6RBZCeV U8rlFWY2 GROSS DESCRIPTION e1euiEXmYCChoSGENIKoPuj (test code = afnRsXCJqvWYaB7GmsoyoCE [id number]) hiHR4oGC3ibHfuvAYdtXGdZ Z7KGUSrXtZdWPVmpCBncuGm IoWvHTOekFHfvGX4QIChIF6 jwztkCIjcAKkqHCJlqwU7UH UriDRsB8RgONVbRS3wswewX ST4SYvzzN5zclSWBecwHt4p dHRibHtcZjFcZmNoYXJzZXQ nYXYfbDtyZTOjNOd7eJ3XWl eiRAR4CMLMFndgLOAsLJ4Gq 9fzVSYovSIrJRC8WSmcmXPd DAOxZALkIMd1NFRfABpjdXF rBZ5ylNucCrpsbEyvf4TekB BcXGlkIDUxMDAyIFxcZGIgI N2NWzFiXXcCWtq0ZUBsHkE3 CCi3EKXRNpIjPlGtYpoeQnH 5IDKhIQw6RDk4QXqCPrI2EP faYne5TOqtRKFjGWAwCEq6I DIgXFxmIEFyaWFsIFxcZmwg GCdzQ79fhVhhjY0cUF2vELA sdmljLlxwYXIgDQpcZXBpY0 4iy4FVr0EmFS8MQAg2zfWbv ziqzE1eBIEdmrMoFAnyvTSi J1edWbFdFBIJNZSpjZWrDZS 0MCBtbHMgbGlnaHQgeWVsbG 93IGZsdWlkOyBwcmVwYXJlZ XD7OEP4xU8hdYarmpjuE3Ye fKEiqH6esrWvCSVcLMbll3h jv6Wlu32zJnMmQZWrwIAmJN YdwK5cKv0noATizB5rDXMzO XH5ZIDzXX5lw20hLNVeSjRl WnHzQo9SEVYbBBbrAALzkSV VJOO6YP3rAXnssDAylabhTR RpH8QhK6HmgbQsvZXaYUFek uZrp1wdAXE3GSCdeOWywZYp BsTyZqknOZJ9HEwsu2ygHVI 1XHNsbXVsdDAgDQpcZnMxNn stKHRjA0CmA4UldqT8DOw0 MICROSCOPIC c0szyZAjBASdhCJ5UnIyJWA DESCRIPTION (test code yj2onv3RcmWJbhWCmZJgpdP = 3370) XwciLfeh26pDC7dW88MS0mG VTkPnQ9TBOyaoK3Mjd4DINk DGMvdKYtI351x5yep1yticZ odMN0zGhuTMDyaazjHjN0WN soQWPatsjoCVf4PWtcMTJek MY9AEMcaVHqV6YcRKDaVW8q svt7LGD5JSouAGKyEtJ7GGF ooLNnRPXxqBvxYMfiy162GC J8WsCzLEYrsuOjqXhzjK4vX vWuHFAVNQAyh8KcVXXwTZku YXJ9 STATEMENT OF ADEQUACY Satisfactory (test code = 2757) SPECIAL STUDIES (test z5bqxSZjGOCnuGK4CfIsWHV code = 3376) vf1tej9FbhCQjfXNbUHjvhZ BypxAftg53oME3fW89HR7jF QHcHvV3ZNTufnS7Rxl2EXHh ZPIsfVVwI516HNHgCAPxnCa vprz9aL94OXHoyK7irDBpMA fljhIkHDizfiJzxtGwDul5L EF6jMbdGCPkziktNjT6VUcz EQLkllgwZWk9WMazRVWflGQ 8MTUipIDsV6WlTNRaHB4zul l4OUV0AMxhDFChTtX0FSRms CMvSTRtzCmuIKthv576HQP1 WcGiGXVtcuGkeRkfbT9mRfI cZnMyMlxjZjEgVGhlIGludG UmoJLggTL1fJ8yMU8gWSPsv XRtL8SaJZJpblVfiRCaHOR9 vFIdbPInCH6eVYvljVMrw2c mk5AlY7sdxYedwQY8LJ1wPK NyMUXaOIjxw6YgwR6bMbipG MGsKEMZYMwfHGEbLYCqp2d0 rJHaHEaaYAFxgJYqOEJ9fJe hXBvsX6WquVRltTTpFRGiic Hhd3cqN7lyQRKlWZY5YT2ut zXaZpIvWD9wnD00y1Cud15c m78fpD4ynMKuhoQrT97weNV rqHWpb4BzUGTlmfApwRK3ZX ZgHTlrrbkww8i4zKQ4tJNao KNokLL2mMSliIFuKOVWoLGs DOCnz209fy4lLBDrdEZhxoY vnC0lYWliwbrgpJZtNA4iXE UhAUJzMGHqOA87fqIaLD2bn HNky4coynKjjBCzd8KxbRV0 GBDvfYQxcpjuQx1mYQ78JGQ sHRlseT5nzTHcywZlYC4hOJ 1cK9F3hPSeXYSfmtFrm0fsK MusYC7aXFYoaRhcIlopRMCl CVPwiqLblRT4COQnfFKwGSB ndTUbPMbnjVKdm8kbn7MzV1 zqmOhcfNK6ZNFrR9wsqHRkd ZF1GDE2sE3aAHikpzMvEOEw a0JbOSQqDAGxFtQ2fB0cTZX 0BjRVrGucLSI0SnC5HKiaGF GnAR9vYYqxONnlP2NssUUbY MYGQQSwy3iqI7ftHUQqd8Vc xY2bpPG5lVMbFCOrhDW1CUE aBUL4XZvkqDUvDGUrEGZttO VbwYSvVj4xgYDiT1PpE8vzo nJhqZMhlGH9tIGrCFqsmnHw BWA6VYDoxN2qUE5bSORtnEQ zFT0oyADeBYLzPIMzHAYyHQ Hqb3AwMCZsqp27IMQjGaaos MhaDJGcEo1cMa4uJETpkxGm FTV7ScFJDL1wbzhlvKUhuKe iqy9lKOdcPDIYVMPcTHFfMF Y6BSSlsR9xNMC6rQX6PDY2I 3luX2ayFYVkhySzXH1uFRWd hTWphzDrEZqcFY2caSUmERH vb7ThwuitHWCpEOV8TGG1BG rpQFXhFTQnWf6gUVEjtH5gB 2BzQUI4myVkw5AxLaMYzFDt eM33rCCyaj30ZMRmEHSpN7E yZGVkIGFzIGludmVzdGlnYX Czx99lnYSdcgKxw5VaboTrS QBbE0tsBCEqfSKdrSMpm5Rm tA4rxOWnhsCfKOX5nZMjBMF slZ9eMVEpiIqoQAJwiD6kK1 YfDGleXw3oRXEjfdsgCQ0dn v65EK1rqpBbRF3sipRnOO59 wiIkBnJvBNl5DOaRXXwDROr 4KSBhcyBxdWFsaWZpZWQgdG 7cjTWjGq6scQVznAulSDHnd NRsORrdkXqjP2thutmiFIcp bQRhv4QllD2upNL4XNB9kD9 nLlxwYXJ9 Gross assessment was [facility] performed at ([facility], code = 2777) Department of Pathology, [address] [place] [id number], Technical component [facility] was performed at ([facility], code = 2778) Department of Pathology, [address] [place] [address], Professional component [facility] was performed at ([facility], code = 2779) Department of Pathology, [address] [place], [place] [id number], [facility] 19:22:21 Test Item Value Reference Range Interpretation Comments Case Report (test code Medical Cytology Report = 104) Case: [id number] Authorizing Provider: Jessie Estrada MD Collected: 10/22/2021 03:35 PM Ordering Location: [facility] Received: 10/22/2021 03:46 PM SERVICES Pathologist: Mikel Mark MD Specimen: Pelvic DIAGNOSIS (test code = [id number] 3220) uZzEwMzNcZnRuYmpcdWMxIH tccnRmMVxlcGljOTYwMVxhb bZxBZZvbONvG4VhtlncZAxz KI5oVE9jmKxvdQItqCSjFYV eBoLqp9umc739jAXnm0gqQA XUyhtaeOa8iPjhT31cj9W9T mjfX44svTHuZBE3BMBvJSDy jKFfETTeTFR2DRTdiXGzZ1d gDIOdJJ4iggynRNpmLYbbWP InfJS0PRTcnQCoL6PaWVGrI MjxNYHoiet1CmLeNq7fkMGm eTcyMFxwYXJkXHBsYWluXGZ lKvPiNACHAhmSYTjDU4kQDk ewRXLEUG5SYBaYKfBOYqHzG 7STLVJHKZ5GXcl5OJlulkBb ICAgLSBGRVcgQVRZUElDQUw kW2FUCGEsI0BJUxljUAUdYM QuDHYPJQAgX99RWVTRRHaoC EO3z6zaeVCvZZWgpENxYMWu MFxhbnNpXGRlZmxhbmcxMDM fVOT9rjVsKUDoYGccOINnVA ipRp3bjGFsqDfoKgZeZFPgj 1tjoxQHkqexiNk9a1bdUXRe DyN7yOFePSszG1myzrIxuIG fYCYyJTu8cC50LYVnrY8mfI AaZAbpkzVuXuP7OGxnVVPqC cD4CXCfoGJrUCGmA9cwXWUt KSuqYZEuBUwmyGEpRZU6aMw ma0F2eOYwoUYqdKhbFjFnTc PnMgBKn4LxPAv1iVqyN3ZtO ZEqLyZ0xLIpEZOcIGqfZWHg MXDzkqW9bX63SJpszfF6lJS ba7Arf95vc134pR6ukRUjDO E1CVRxYPUxvYGmKXQlECC7I GHzjGGnR3vbDOIkOW6etloo RRucTWivRXCbbFB1XTScePZ pU3DdQFXaLHlqCYJwgdk6Nw SmKx9ssVVlgVujIPpjc7czn 8xscMDmUzu0MUOdJmIdZoad PPghn1Opr1tjMJMxmz4yRKC 6sXBmnQfof4S1uJUcUIDkeD UfBNKxRU8wwKBtBDKqpJ4it mxjXHBnYnJkcmhlYWRccGdi cqKyRs3vfUyoUTJ3CXlxF8u hcH7cDwT4CMkdW7fhlF5cNW m0GAixGIIxeIQ2vnV2XKDfh CSvF6EmwW4hMQLfCD2vbvd2 g2sjQKI6KHkaWYAeTxG1mhY 8QORztBCaPCUysMvpZUvzb4 64DPH3WoStIDSjn3SdT1Rhg QizW69vtZrjV23cBKAibUnc jY9hbQkwaD2jUlSrIyOrJTw nfJseAK2uQDMjF2qxcDMmJU PeFJLuB2aeKwWqeD2eiWlhN MuirrBcPXRkGoz8ESDcmCSs NOZmAuz9GSKrUGXxM41ywsi jEFZ2jJ3cl7vtr6IwUBdyEH M4MTBfc01lWPslkvV8MWhqH s2dCXVvSWk6LWotjRGkdP2= COMMENT (test code = y0nfoMOrJFGfjES5ThAqNLM 3359) ik0iby9NrnOGwuQHySSdwrR OnrcSbhp13xKC3qV84VW0lX YOyVzK2PSWasyQ3Iyh0OJSf GABtpAYlF464y3mdh9wtxeV lwLV4uWtpSBPjbunwCiG6NZ vgDUJyqcboKAc2OJobBIEij DR4WUFxgLBfY6CsOZDaGK9b dxo6IVG2HRrzHVQkEvD1SUK jjGPtXLBfjDyzPEzdi531GN Y7YrUaEMYtmtZtlYyscY3gI bEnZLKYkGRePWsaKpGlTO53 rAPbGVkzJ6r9XXYcOGGlZC6 tZXRyaWFsIGNlbGxzIGZyb2 1wRR4cm66zmZNiz6DulsutZ D9qu8SgeTQianpye1Vyukaj DA4vOCoph6ObvFjjGMz8IG8 hbGlnbmFudCBjZWxscyBmcm 9tIHBhdGllbnQncyBvdmFya UQtGHXqXA4jMRAecJ8mZUKc LDBfo3MlhhGypa4cZR0fmMI qNHTiFKQaDKiyNSSzcU9qem N1oHxjCJJiSSEuqiapv0RuV GxhdGVyIHdpdGggdGhlIGNv hfU8ysYuysCtV0SfIZQCRbJ lEAUdFAAhvsNuKS2dFDFcDQ 5jhV7em6gvgWFfq1yxu8hiO HBhcn0= CPT Code(s) (test code t6axeJQjLNZgvKS5QcGfATU = 3357) qb7nxj8TzhXExuTYiHFygnG RrviCxbn45jCD9zO66GK3iE QFyGdG0GAPnefV3Rmo7KRIl EREsjWVpB198b0puk3atvhQ vfXT1uCsfWVZxoavaZvA5VD krXLVawqqcQHj8HJlsCXDwe PX5GIRqpQSwT0KjIGWlGZ5j yvb0HZH8LLopMZKfTcH3MUV sgYCzRCRcrOjvCAcyb099QT E2EkZmCGVbvjYmtVqdvB3wO bQgWWR3TGMcJSnmIRdrOVAy MVn0GfPpCkV6NRC4VNqwPBI 9 CLINICAL DATA (test l2lavSLeFWDypNE0AjCwCKR code = 3355) xa3jbd3RnfUKqaEAkYZnymD YzmcTvvn85lCO5zU14YE6sY FPgPiK0PMEfniQ9Uww8DOJg QRBhtJNkM092r4ctg3eodmK xvUW3pMjjXEUjdtpoEvW2ZZ lmNPWjxqsxGUp9BDeeNEAjq AX5DTEjjDLqK6OnALHrYV1e rld0MHS7WHomQBOtFiM6NIJ tkTKlKCRakWoySBqck809QN M8YvUeKGBmtgCydApwuG6cA wRsAJYEiHE5iANnpY7vmVEt OVIxtk6cG94vqQxrcAhkpE8 atUFnHvRzCV6xwQHpXTH0l9 QuXHBhcn0= SPECIMEN SOURCE (test e3bkgYVjDIUgwIE0WmEmOPZ code = 3377) eh6kbj1BypIMzsBVfNTffjS LrgcXjdu65cBA8tK70JC1fL ULkJtN7VDLupmH5Dcz3EDQt IUGsfQWpA702u1osg3tulvH ywIO0qNpdNKJytwysMyI8EF opGZAzlcvfKJu5QZmiHXSju NW1MRQydIGkV3OyCWWhRT8t zfx7JOV7GNyzKXNpYlD5CBI lpZIrYMXxgEmnCYias601ZU G4SsSnTVKoqvJxaUgjuV8jF aVvMGESXFpKEJZoH4BZGFmG L2zeBZP3 GROSS DESCRIPTION f7znlPKlLEGqqSWTQPLyWdk (test code = ygrRqOFMsiZSnL2KljbylES [id number]) uxYE2ySH7isJbazNXglVVoQ L3HABNaUeGhXTDouDLftwVv ZxBiVVTveRHtsBQ2ALEqAQ4 hmwlwPWppRNnbCLPudmR2BY QgvLZkA6RlKBOtQS5izchbS AS7SJwjeB8rmiSRUpfdKa6r dHRibHtcZjFcZmNoYXJzZXQ sYCRicBhqOCRnKFh0aJ7KYd dnTGP7PGKBYqhxGIIpTH7My 0ciWARueOYcXRG6YEutmSJt VIMzASAdBKj4VTQeZEgfvIV jQL5cfToeNysmnIxhm2CpoL BcXGlkIDUxMDAyIFxcZGIgI M1FPzAeWVtXXuf0MXJmIvZ2 IAt5XFGNGoTkSzNnIclhYuR 9GLVnRSy8VQn6TZcTFuC0MO loGit0JNvhFSLgJJKjOVj3L DIgXFxmIEFyaWFsIFxcZmwg HPorN42wqCeftN0nWS2rHUP sdmljLlxwYXIgDQpcZXBpY0 6oz4XLt8NaNN3WXAe2fqCot zsreE7hYRIleeDnIWkppRQg J3atLuHaJGVIFSSnaQFzZTK 0MCBtbHMgbGlnaHQgeWVsbG 93IGZsdWlkOyBwcmVwYXJlZ CQ1VRT8vL4irCcdjteaU3Gp nLUvlP3wzySkOINfCZaed2z ba7Ubc04dUoSpAMEkmVSiTY VdkH5fXm3chTMymJ0zSBUmK LD6RKMjXB6ee66hQHTdMcPo JuFaMj8AVMHgXIfaHMBblTB QKNY4TM4iFLmfxUVbbkjhQI JmL1PuD7OlubJkgXWlDJQba vMev1pjGIO4QLBubXNgpAPb GvRcQnukOYC9NFkwu2szCHJ 1XHNsbXVsdDAgDQpcZnMxNn qzHGSjN1ZlB1PyrzK9YEa4 MICROSCOPIC f0ylxXAyYDNznHU0WyCjPBU DESCRIPTION (test code lx1qds0BqwBRyeHQvZPhglK = 3371) PxovSwba43kVY1eX70PL8zV RBiVbE8NUByhdP8Tev8MJCk UWLjlEZyB185k2ava6xhjbN edUM1mLpaYMKmwlicGoP3LQ qsCXRyozthATf4IBauBRVxt GB7HIWycZUzX3VeXEWmVH2u vbf2KGJ3TWcmIQYpBgF0MKA axWScETVnkBclHRyxz093FZ G9MkRoVNHzecZuzLqefH7vQ fKlKCWQPMVow4CdVQUuCTba YXJ9 STATEMENT OF ADEQUACY Satisfactory (test code = 2757) SPECIAL STUDIES (test b5fyiFVaISJpoQW5NeQqCAR code = 3376) zo4jui6RmdSMmvMXyWXawhL SgdfJrfk00eTL7nM63KW8lO PUbMnN6TSIyxfN6Eqw6YMFt LJLeePQtF463RNVfMTFewCt wzih6kA10CBMreY8flXMrWE uypyYlQOexovNlqrTeBdv6H IP7vYiwQHXxpszmQkT5SPea CRScsyonCPh4AVzfTHQqnYR 3UYDveOJfE1YyNQOwYS1kqs h9ZDD2LTdoLDQlZeT2UKVuf USrYPRiyJahIFago854PLB0 JtGsDVKbwcDblRtekI8lWoX cZnMyMlxjZjEgVGhlIGludG UgdDLmfDP1gU7fRJ0bDDAnz TKaH2DsFMBrypQnzQSpPKR4 fAIibGQxMS9rYVcweZTkp7v oz2LaJ4djzCfhlLQ1BS4iFM IdADJaZShup8IcqC4hShfqO YRvVUEHQRegTNEjSBPse1q1 wKZzOPbbLKSnhDXnYDR1jGe uKUqnF6SunCNcdDXmWZYdci Noh9fgK4lgGDZhFEE3FK0ne iFdHdWeJX2luS19p8Ckj31f n70kkQ0zgCLnucViC79udAQ egWCne0PvDNAgyrWfrFA2YZ McGMsrewapo3q4xNS2qYFqy OKorMR8pZHlwCIbLQRHjDHf OMItj329fo2kBMOmiOYndsB zrV5uCQvocqwmbMKsFJ7vEE RrKCDpRLYuLK79uyVwEX2wc BGsn3ghhoJflUNfh3MwjPR3 OLDjtGLpzjplVd3kFO70BKW hCGpdcJ5khWWopdHwJE6vIP 8sF1J5iOUmYOJpshHfg3hzJ QhcND1kGMNkaQvqUsiuRMRc NTUaxhDkaLQ3ABFqpPAgXSP qpIBzNDexfKTxg5skw5GwL4 ndeCiepGH4WLOpS2ojkURwe WM7GNO5pT0eDEdattJpIOKn k5PtPKEbMYIzAfS5fY9yTZW 5OgBWnDvaBXX1FoO0KIhrNO HzDV7hVDgrSVgqE3HxxNYfI GJYYNMce9ubN8cfNKIbg4Aw qD4wgQF5pECeTCYngZP6TCX bLMC3DDrkzDUeGHQlDCDyjY BynLVqJw5yvMLkL4QkB7geh bXjrKWtfRA1tGSwGLmhgwWe CTF1ISQdlR1rFN2aPTKdxRZ oLP6gmRDgNCZfYLHnFJCyMP Luu2EfKHSblz86RQNoWxifz DowBBRlFc2rQw7sBTAcwhXd SDJ4QvMYKQ3xlgqntLZyzDq cla6dNFthATPJOFGiKNOjDJ A1DPZdpU4sRLA7dQY7BMB5N 1ooM1zgMYHdcbRfRI8cLSKm pBNmyaTyWGsiJG4deTHpZMX qi0TnoucgEXIuQBM1RQQ0WC imKQQySBTkIy6bOSYyvB3jR 7SmMJO6hbLqv4MtRjCNcLOm cR80uUGonu65AKMfOAEdF9Z yZGVkIGFzIGludmVzdGlnYX Yhj33agAJcrfCpx4HhbqNvK GTuK1ogENNbmRDfoGWpn7Xa dH1zpKGvetUmMJW8zJWvEZB agE1dNECojQawFWDpbX0nU1 PsUSuwSv4xAKZrnbvkDD8nt t89LF6rvgDqXW8hwmSgGY57 xtBvKoQiPRo2VAtWCBjOXCf 4KSBhcyBxdWFsaWZpZWQgdG 0rfOJhRs7fvWVevOujOSNsb VYsJAvxtEftQ3kcbjowHVaj gDPqu6FcqM9ygYH3RQE8sK3 nLlxwYXJ9 Gross assessment was [facility] performed at ([facility], code = 2777) Department of Pathology, [address] [place], [place] [address], Technical component [facility] was performed at ([facility], code = 2778) Department of Pathology, [address] [place] [id number], Professional component [facility] was performed at ([facility], code = 2779) Department of Pathology, [address] [place] [phone], [facility] 19:22:21Medical Cytology Report Case: [id number] Authorizing Provider: Jessie Estrada MD Collected: 2021 03:35 PM Ordering Location: [facility] Received: 10/22/2021 03:46 PM SERVICES Pathologist: Mikel Mark MD Specimen: Pelvic PELVIC WASHING (CYTOSPINS AND CELL BLOCK): - FEW ATYPICAL CELLS SEEN - SEE COMMENT Signing Pathologist Direct Phone Line: [id number] signed by Mikel Mark MD on 10/25/2021 at 7:22 PMThe differential includes endometrial cells from endometriosis, endosalpingiosis, and less likely malignant cells from patient's ovarian endometrioid adenocarcinoma.The cell block will be reviewed later with the concurrent case [id number] and an addendum will follow.[id number], [id number], [id number]. [id number] post laparoscopy, history of adnexal cyst.PELVIC WASHINGA. Pelvic.Received 40 mls light yellow fluid; prepared 4 cytospins, cell block (A2) (collodion bag) placed in formalin at 11:06 am on 2Performed. SatisfactoryThe interpretation of this case included theuse of immunohistochemistry or special stains.PAX8, ER- positive in some atypical cellsControl Slides Examined: In-house known positive controls were evaluated along with the test tissue. These controlslides run alongside of the patients sample show appropriate staining. Internal positive and negative controls when available are evaluated Immunohistochemistry technical testing was performed at [facility], Pathology Laboratory where it was developed and [...] qualified to perform high complexity clinical laboratory testing.[facility], Department of Pathology, [address] [place] [address], [facility], [address] [place] [address], [facility], [address] [place] [address], [id number] 06:08:01 Test Item Value Reference Range Interpretation Comments MAGNESIUM (BEAKER) (test code = 2.1 mg/dL 1.6-2.6 627) Quality Control Operator ID - PIJUSTEN [id number] 06:08:01 Test Item Value Reference Range Interpretation Comments PHOSPHORUS (BEAKER) (test code = 2.0 mg/dL 2.3-4.7 L 604) Quality Control Operator ID - JADYN LCOMPREHENSIVE METABOLIC [id number] 06:08:00 Test Item Value Reference Range Interpretation [...] S NOT APPLICABLE FOR DIALYSIS PATIEN TS. Quality Control Operator ID - PIAYA LCBC W/PLT COUNT & AUTO [id number] 05:39:19 Test Item Value Reference Range Interpretation [...] 0-1 PERCENT (BEAKER) (test code = 2801) [id number] 05:43:49 Test Item Value Reference Range Interpretation Comments PHOSPHORUS (BEAKER) (test code = 3.3 mg/dL 2.3-4.7 604) Quality Control Operator ID - PIAYACOMPREHENSIVE METABOLIC [id number] 05:43:48 Test Item Value Reference Range Interpretation [...] S NOT APPLICABLE FOR DIALYSIS PATIEN TS. Quality Control Operator ID - [id number] 05:43:48 Test Item Value Reference Range Interpretation Comments MAGNESIUM (BEAKER) (test code = 1.8 mg/dL 1.6-2.6 627) Quality Control Operator ID - PIAYACBC W/PLT COUNT & AUTO [id number] 05:35:32 Test Item Value Reference Range Interpretation [...] 0-1 PERCENT (BEAKER) (test code = 2801) POC-Glucose [id number] 19:38:23 Test Item Value Reference Range Interpretation Comments POC-Glucose Meter (test 109 mg/dL 70-110 : TE STED AT [facility] code = 1538) [address] [facility], 770 30: Quality Control Operator/Techni evelyn ID = [id number] for [place]che[place], Opal Lab Interpretation (test Normal code = 84536-6) [facility] [id number] 19:38:23 Test Item Value Reference Range Interpretation Comments POC-Glucose Meter (test 109 mg/dL 70-110 : TE STED AT [facility] code = 1538) [address] [facility], 770 30: Quality Control Operator/Techni evelyn ID = [id number] for Opal Cabello Lab Interpretation (test Normal code = 25384-6) [facility] [id number] 19:38:23 Test Item Value Reference Range Interpretation Comments POC-Glucose Meter (test 109 mg/dL 70-110 : TE STED AT [facility] code = 1538) [address] [facility], 770 30: Quality Control Operator/Techni evelyn ID = [id number] for Morris Cabelloy Lab Interpretation (test Normal code = 14470-4) [facility] [id number] 19:38:23 Test Item Value Reference Range Interpretation Comments POC-GLUCOSE METER 109 mg/dL 70-110 : TESTED A T [facility] 6720 ([facility]) (test code = [facility], 1538) [address]: Quality Control Operator/Techni evelyn ID = [id number] for Opal Cristobal HIV-1 ANTIGEN WITH HIV-1/2 [id number] 13:28:20 Test Item Value Reference Range Interpretation Comments HIV-1 ANTIGEN WITH HIV 1\\T\\2 Nonreactive Nonreactive ANTIBODY (2) ([facility]) (test code = 2586) Quality Control Operator ID - BSPOCT-GLUCOSE [id number] 12:48:48 Test Item Value Reference Range Interpretation Comments POC-GLUCOSE METER 80 mg/dL 70-110 : [facility] (test code = [facility], 1538) [address]: Quality Control Operator/Techni evelyn ID = [id number] for Radha Jules
[2022-09-12 10:23] LABS: Absolute Lymphocytes (CBC) 0.7 K/uL (0.7-4.9); Hematocrit 35.3 % (36.0-45.0); MCV 92.4 fL (80-100); MPV 7.1 fL (7.6-11.3); RBC Red Blood Cell Count 3.82 M/uL (3.86-4.86)
[2022-09-12 10:43] LABS: Albumin 3.7 g/dL (3.4-5.0); Bilirubin Total 0.7 mg/dL (0.2-1.0); Potassium 3.8 mmol/L (3.5-5.1); Protein, Total 7.3 g/dL (6.4-8.2)
[2022-09-12 10:57] LABS: Urine Blood Negative (Negative); Urine Glucose Negative (Negative); Urine Protein Negative (Negative)
[2022-09-12 12:48] VITALS: TEMP 98.3
[2022-09-12 12:51] VITALS: BP 107/75; O2SAT 100
--- NOTE | 2022-09-26 16:07 | ER ---
Nurse's Notes [facility] Name: Jennifer Woody Age: 76 yrs Sex: Female : 1945 Arrival Date: 09/12/2022 Time: 09:13 Bed 10 Private MD: Richard Stinson T Diagnosis: Cutaneous Abscess of the Buttock Presentation: 09/12 09:35 Chief complaint: Patient states: "Anal abscess" that started Wed morning, saw PCP and ph was placed on antibiotic, states that last night "it started draining and I'm concerned that the antibiotics won't help because of all of my health problems." denies fever N/V. Coronavirus screen: Vaccine status: Patient reports receiving the 2nd dose of the covid vaccine. Ebola Screen: No symptoms or risks identified at this time. Initial Sepsis Screen: Does the patient meet any 2 criteria? No. Patient's initial sepsis screen is negative. Does the patient have a suspected source of infection? Yes: Skin breakdown/wound. Risk Assessment: Do you want to hurt yourself or someone else? Patient reports no desire to harm self or others. Onset of symptoms was September 12, 2022. 09:35 Method Of Arrival: Ambulatory ph 09:35 Acuity: BETZY 3 ph Triage Assessment: 09:41 General: Appears in no apparent distress. comfortable, well groomed, Behavior is calm, ph cooperative, appropriate for age, Denies fever, feeling ill. Pain: Complains of pain in buttocks. Historical: - Allergies: 09:38 Aspirin; ph 09:38 maltitol; ph 09:38 Pseudoephedrine; ph 09:38 Iodine; ph 09:38 Codeine; ph 09:38 Demerol; ph 09:38 Seconal Sodium; ph 09:38 Sulfa (Sulfonamide Antibiotics); ph 09:38 PENICILLINS; ph 09:38 Erythromycin; ph 09:38 Levaquin; ph 09:38 Cephalexin; ph 09:38 Tramadol HCl; ph 09:38 Keflex; ph - Home Meds: 10:49 Tylenol [Active]; nj1 - PMHx: 09:38 HYPOGLYCEMIA; Ovarian cancer; Mesenteric tumor; ph - PSHx: 09:38 hysterectomy; ovarian CA; mastectomy-bilateral; ph - Immunization history:: Adult Immunizations unknown. - Social history:: Smoking status: Patient denies any tobacco usage or history of. Screenin:00 Abuse screen: Denies threats or abuse. Denies injuries from another. Nutritional nj1 screening: No deficits noted. Tuberculosis screening: No symptoms or risk factors identified. 10:00 [facility] ED Fall Risk Assessment (Adult) History of falling in the last 3 months, nj1 including since admission No falls in past 3 months (0 pts) Confusion or Disorientation No (0 pts) Intoxicated or Sedated No (0 pts) Impaired Gait No (0 pts) Mobility Assist Device Used No (0 pt) Altered Elimination No (0 pt) Score/Fall Risk Level 0 - 2 = Low Risk. Assessment: 10:00 General: Appears in no apparent distress. comfortable, Behavior is calm, cooperative, nj1 appropriate for age. Neuro: No deficits noted. Level of Consciousness is awake, alert, obeys commands, Oriented to person, place, time, situation. Cardiovascular: No deficits noted. Patient's skin is warm and dry. Respiratory: No deficits noted. Airway is patent Respiratory effort is even, unlabored, Respiratory pattern is regular. 10:00 Pain: Complains of pain in Perirectal Pain currently is 3 out of 10 on a pain scale. nj1 Quality of pain is described as burning, stinging. 10:47 Reassessment: Patient appears in no apparent distress at this time. No changes from nj1 previously documented assessment. Patient and/or family updated on plan of care and expected duration. Pain level reassessed. Patient is alert, oriented x 3, equal unlabored respirations, skin warm/dry/pink. 12:25 Reassessment: Patient appears in no apparent distress at this time. Patient and/or nj1 family updated on plan of care and expected duration. Pain level reassessed. Patient is alert, oriented x 3, equal unlabored respirations, skin warm/dry/pink. Pt thankful for our services. Sitz bath basin given to patient per Pj SANDERS instructions. . Vital Signs: 09:35 BP 126 / 89; Pulse 93; Resp 18; Temp 98.3; Pulse Ox 99% on R/A; Weight 55.34 kg; Height ph 5 ft. 5 in. ; 10:46 BP 100 / 67; Pulse 81; Resp 18; Pulse Ox 99% on R/A; Pain 3/10; nj1 12:25 BP 107 / 75; Pulse 71; Resp 17; Pulse Ox 100% ; nj1 09:35 Body Mass Index 20.30 (55.34 kg, 165.1 cm) ph 10:46 Pain Scale: Adult nj1 ED Course: 09:13 Patient arrived in ED. mr 09:14 Richard Stinson MD is Private Physician. mr 09:14 Pj Thompson PA is PHCP. [facility] 09:14 Guillaume Perez MD is Attending Physician. [facility] 09:38 Triage completed. ph 09:41 Arm band placed on Patient placed in an exam room. ph 10:00 Patient has correct armband on for positive identification. Placed in gown. Bed in low nj1 position. Call light in reach. Moved to private room. Warm blanket given. 10:18 Inserted saline lock: 20 gauge in right antecubital area, using aseptic technique. zm Blood collected. 10:18 Lactate w/ 2H reflex if indic. Sent. zm 10:18 Blood Culture Adult (2) Sent. zm 10:18 CMP Sent. zm 10:18 CBC with Diff Sent. zm 10:26 Ariella Nation, RN is Primary Nurse. nj1 10:35 Inserted saline lock: 22 gauge in left antecubital area, using aseptic technique. Blood zm collected. 11:46 Karthik Al MD is Referral Physician. [facility] 12:30 No provider procedures requiring assistance completed. nj1 12:30 IV discontinued, intact, bleeding controlled. nj1 Administered Medications: No medications were administered Medication: 12:30 VIS not applicable for this client. nj1 Outcome: 11:47 Discharge ordered by . [facility] 12:35 Discharged to home ambulatory. nj1 12:35 Condition: good 12:35 Discharge instructions given to patient, Instructed on discharge instructions, follow nm1 up and referral plans. medication usage, wound care, Demonstrated understanding of instructions, follow-up care, medications, wound care. 12:44 Patient left the ED. nj Signatures: Pj Thompson PA PA miguelito BoogieDiamond mr HoangMaura, RN RN Manuela Enrique Ariella Nation RN RN nj
--- NOTE | 2022-09-26 16:07 | EDPHYS ---
Physician Documentation [facility] Name: Jennifer Woody Age: 76 yrs Sex: Female : 1945 Arrival Date: 09/12/2022 Time: 09:13 Bed 10 Private MD: Richard Stinson T ED Physician Guillaume Perez HPI: 09/12 09:39 This 76 yrs old Female presents to ER via Ambulatory with complaints of Abscess. [facility] 09:39 Onset: The symptoms/episode began/occurred gradually, 3 day(s) ago. jmm 14:18 This is a 76 year old female with a history of ovarian cancer, that presents to the ED jmm with complaints of swelling and pain to her buttock. Symptoms initially began this past Thursday. Prescribed rifampin by pcp. Developed drainage last night. Denies fever. . Historical: - Allergies: 09:38 Aspirin; ph 09:38 maltitol; ph 09:38 Pseudoephedrine; ph 09:38 Iodine; ph 09:38 Codeine; ph 09:38 Demerol; ph 09:38 Seconal Sodium; ph 09:38 Sulfa (Sulfonamide Antibiotics); ph 09:38 PENICILLINS; ph 09:38 Erythromycin; ph 09:38 Levaquin; ph 09:38 Cephalexin; ph 09:38 Tramadol HCl; ph 09:38 Keflex; ph - Home Meds: 10:49 Tylenol [Active]; nj1 - PMHx: 09:38 HYPOGLYCEMIA; Ovarian cancer; Mesenteric tumor; ph - PSHx: 09:38 hysterectomy; ovarian CA; mastectomy-bilateral; ph - Immunization history:: Adult Immunizations unknown. - Social history:: Smoking status: Patient denies any tobacco usage or history of. ROS: 14:18 Constitutional: Negative for fever, chills, and weight loss, Cardiovascular: Negative jmm for chest pain, palpitations, and edema, Respiratory: Negative for shortness of breath, cough, wheezing, and pleuritic chest pain. 14:18 Skin: Positive for erythema, swelling. 14:18 All other systems are negative. Exam: 14:18 Constitutional: This is a well developed, well nourished patient who is awake, alert, jmm and in no acute distress. Head/Face: atraumatic. Eyes: EOMI, no conjunctival erythema appreciated ENT: Moist Mucus Membranes Neck: Trachea midline, Supple Chest/axilla: Normal chest wall appearance and motion. Cardiovascular: Regular rate and rhythm. No edema appreciated Respiratory: Normal respirations, no respiratory distress appreciated Abdomen/GI: Non distended Back: Normal ROM 14:18 Skin: erythema noted to the gluteal cleft, draining abscess noted. 14:18 Neuro: Orientation: is normal, Mentation: is normal, Memory: is normal. 14:18 Psych: Behavior/mood is pleasant, cooperative. Vital Signs: 09:35 BP 126 / 89; Pulse 93; Resp 18; Temp 98.3; Pulse Ox 99% on R/A; Weight 55.34 kg; Height ph 5 ft. 5 in. ; 10:46 BP 100 / 67; Pulse 81; Resp 18; Pulse Ox 99% on R/A; Pain 3/10; nj1 12:25 BP 107 / 75; Pulse 71; Resp 17; Pulse Ox 100% ; nj1 09:35 Body Mass Index 20.30 (55.34 kg, 165.1 cm) ph 10:46 Pain Scale: Adult wv1 MDM: 09:26 Patient medically screened. [facility] 11:46 Differential diagnosis: abscess, cellulitis. Data reviewed: vital signs, nurses notes, [facility] lab test result(s). Counseling: I had a detailed discussion with the patient and/or guardian regarding: the historical points, exam findings, and any diagnostic results supporting the discharge/admit diagnosis, lab results, the need for outpatient follow up, to return to the emergency department if symptoms worsen or persist or if there are any questions or concerns that arise at home. 09/12 09:38 Order name: CBC with Diff; Complete Time: 10:26 [facility] 09/12 09:38 Order name: CMP; Complete Time: 10:44 [facility] 09/12 09:38 Order name: Blood Culture Adult (2) [facility] 09/12 09:38 Order name: Lactate w/ 2H reflex if indic.; Complete Time: 10:47 [facility] 09/12 10:57 Order name: Urine Dipstick-Ancillary; Complete Time: 11:05 [facility] 09/12 09:38 Order name: Saline Lock; Complete Time: 10:18 [facility] 09/12 09:39 Order name: Gown patient; Complete Time: 10:18 [facility] 09/12 10:46 Order name: Urine Dipstick-Ancillary (obtain specimen); Complete Time: 10:58 [facility] Administered Medications: No medications were administered Disposition: 16:03 Co-signature as Attending Physician, Guillaume Perez MD I reviewed the patient's care rn provided by the Advanced Practice Provider and agree with the diagnosis and treatment plan. Disposition Summary: 09/12/22 11:47 Discharge Ordered Location: Home [facility] Condition: Stable [facility] Diagnosis - Cutaneous Abscess of the Buttock [facility] Followup: [facility] - With: Karthik Al MD - When: 2 - 3 days - Reason: Recheck today's complaints, Continuance of care, Re-evaluation by your physician Discharge Instructions: - Discharge Summary Sheet [facility] - How to Take a Sitz Bath [facility] Forms: - Medication Reconciliation Form [facility] - Thank You Letter [facility] - Antibiotic Education [facility] - Prescription Opioid Use [facility] Prescriptions: - Doxycycline Hyclate 100 mg Oral Tablet - take 1 tablet by ORAL route every 12 hours; 20 tablet; Refills: 0, Product [facility] Selection Permitted Signatures: Dispatcher [employer] Pj Lynch PA PA m Guillaume Perez MD MD rn Hall, Patricia RN RN ph Ariella Nation RN RN nj1
== END 2022-09-12 12:44 | disposition home or self-care (01) ==
LOC: ER 09:09
DX: L02.31 Cutaneous abscess of buttock (principal); Z88.0 Allergy status to penicillin; Z88.1 Allergy status to other antibiotic agents; Z88.2 Allergy status to sulfonamides; Z88.3 Allergy status to other anti-infective agents; Z88.5 Allergy status to narcotic agent; Z88.6 Allergy status to analgesic agent
CPT/HCPCS: 36415; 80053; 81003; 83605; 85025; 87040; 99283

== ENCOUNTER 2024-11-24 12:32 | Emergency (ER) | payer OTHER ==
--- NOTE | 2024-11-24 14:23 | EDPHYS ---
Physician Documentation [facility] Name: Jennifer Woody Age: 78 yrs Sex: Female : 1945 Arrival Date: 11/24/2024 Time: 12:32 Bed IW3 Private MD: ED Physician Caro Christina HPI: 11/24 13:30 This 78 yrs old Female presents to ER via Ambulatory with complaints of Flu symptoms. sb4 14:24 Patient reports cough, malaise, postnasal drip x 3 days. Went to her PCP 2 days ago, sb4 was diagnosed with viral infection, was told to take vfqt-rad-wtvsoai medications. Has not been doing so. States that her symptoms have worsened and she feels that she is getting a bad sinus infection. Endorses subjective low-grade fever. Denies any chest pain or shortness of breath. Denies any nausea, vomiting, diarrhea. Denies any sick contact. Historical: - Allergies: 13:01 Iodine; ll1 13:01 Aspirin; ll1 13:01 Cephalexin; ll1 13:01 Levofloxacin; ll1 13:01 Meperidine; ll1 13:02 PENICILLINS; ll1 13:02 Erythromycin; ll1 13:02 Sulfa (Sulfonamide Antibiotics); ll1 13:03 Codeine; ll1 13:03 psuedoephridrine; ll1 - PMHx: 13:01 HYPOGLYCEMIA; ovarian cancer; Mesenteric tumor; ll1 - PSHx: 13:01 hysterectomy; mastectomy-bilateral; ovarian CA; ll1 - Immunization history:: Adult Immunizations up to date. - Infectious Disease History:: Denies. - Social history:: Smoking status: Patient denies any tobacco usage or history of. ROS: 14:25 Abdomen/GI: Negative for abdominal pain, nausea, vomiting, diarrhea, and constipation, sb4 14:25 Constitutional: Positive for fever, malaise, 14:25 ENT: Positive for nasal discharge, sinus congestion, sinus pain, 14:25 Respiratory: Positive for cough, with green sputum, 14:25 All other systems are negative, Exam: 14:25 Constitutional: This is a well developed, well nourished patient who is awake, alert, sb4 and in no acute distress. Eyes: Extra-ocular motions intact. Periorbital areas with no swelling, redness, or edema. Cardiovascular: Regular rate and rhythm with a normal S1 and S2. Respiratory: No increased work of breathing, no retractions or nasal flaring. Skin: Warm, dry with normal turgor. Normal color with no rashes, no lesions, and no evidence of cellulitis. 14:25 Head/face: Sinus tenderness, that is mild, is located over the right frontal sinus, left frontal sinus, right ethmoid sinus, left ethmoid sinus, right maxillary sinus and left maxillary sinus, 14:25 ENT: Exam is negative for TM abnormalities, epistaxis, nasal discharge, enlarged tonsils, Posterior pharynx: swelling, is not appreciated, erythema, that is moderate, exudate, is not appreciated, 14:25 Respiratory: Breath sounds: are clear throughout, Vital Signs: 13:00 BP 125 / 79; Pulse 91; Resp 17; Temp 98.4; Pulse Ox 99% on R/A; Weight 54.88 kg; Height ll1 5 ft. 5 in. ; Pain 5/10; 13:00 Body Mass Index 20.14 (54.88 kg, 165.1 cm) ll1 13:00 Pain Scale: Adult ll1 MDM: 13:02 Medical Screening Exam initiated sb4 14:25 Differential Diagnosis: Bronchitis Influenza Upper Respiratory Infection Sinusitis sb4 Pharyngitis Viral Syndrome. Data reviewed: vital signs, nurses notes, and as a result, I will discharge patient. Counseling: I had a detailed discussion with the patient and/or guardian regarding the historical points, exam findings, and any diagnostic results supporting the discharge/admit diagnosis, the need for outpatient follow up, for definitive care, to return to the emergency department if symptoms worsen or persist or if there are any questions or concerns that arise at home. Administered Medications: No medications were administered Disposition Summary: 11/24/24 14:23 Discharge Ordered Notes: Location: Home sb4 Problem: new sb4 Symptoms: are unchanged sb4 Condition: Stable sb4 Diagnosis - Acute sinusitis, unspecified sb4 Followup: sb4 - With: Private Physician - When: 1 week - Reason: Recheck today's complaints, Re-evaluation by your physician Discharge Instructions: - Discharge Summary Sheet sb4 - Sinusitis, Adult, Nasg-hr-Pwhc sb4 - How to Perform a Sinus Rinse, Kxhn-we-Gtgr sb4 Forms: - Antibiotic Education sb4 - Patient Portal Instructions sb4 - Leadership Thank You Letter sb4 Prescriptions: - Doxycycline Hyclate 100 mg Oral Tablet - take 1 tablet ORAL route every 12 hours; 20 tablet; Refills: 0, Product sb4 Selection Permitted Signatures: Roxann Martínez, RN RN ll1 Kaylie Baker PA-C PA-C sb4
--- NOTE | 2024-11-24 14:23 | ER ---
Nurse's Notes [facility] Name: Jennifer Woody Age: 78 yrs Sex: Female : 1945 Arrival Date: 11/24/2024 Time: 12:32 Bed IW3 Private MD: Diagnosis: Acute sinusitis, unspecified Presentation: 11/24 13:00 Chief complaint: Patient states: Cough started Thursday evening. Diagnosed with virus ll1 with Dr. Anne on Thursday. Just not feeling better. Coronavirus screen: Client denies travel out of the [place] in the last 14 days. congestion, cough unrelated to allergies. Ebola Screen: Patient denies travel to an Ebola-affected area in the 21 days before illness onset. Initial Sepsis Screen: Does the patient meet any 2 criteria? No. Patient's initial sepsis screen is negative. Does the patient have a suspected source of infection? No. Patient's initial sepsis screen is negative. Risk Assessment: Do you want to hurt yourself or someone else? Patient reports no desire to harm self or others. Onset of symptoms was November 19, 2024. 13:00 Method Of Arrival: Ambulatory ll1 13:00 Acuity: BETZY 3 ll1 Triage Assessment: 13:01 General: Appears uncomfortable, Behavior is calm, cooperative, appropriate for age. ll1 General: Reports fatigue for. Pain: Complains of pain in face Quality of pain is described as pressure. EENT: Reports nasal discharge pain in right cheek, nose and left cheek. Respiratory: Reports cough that is. Historical: - Allergies: 13:01 Iodine; ll1 13:01 Aspirin; ll1 13:01 Cephalexin; ll1 13:01 Levofloxacin; ll1 13:01 Meperidine; ll1 13:02 PENICILLINS; ll1 13:02 Erythromycin; ll1 13:02 Sulfa (Sulfonamide Antibiotics); ll1 13:03 Codeine; ll1 13:03 psuedoephridrine; ll1 - PMHx: 13:01 HYPOGLYCEMIA; ovarian cancer; Mesenteric tumor; ll1 - PSHx: 13:01 hysterectomy; mastectomy-bilateral; ovarian CA; ll1 - Immunization history:: Adult Immunizations up to date. - Infectious Disease History:: Denies. - Social history:: Smoking status: Patient denies any tobacco usage or history of. Screenin:41 [facility] ED Fall Risk Assessment (Adult) History of falling in the last 3 months, ll1 including since admission No falls in past 3 months (0 pts) Confusion or Disorientation No (0 pts) Intoxicated or Sedated No (0 pts) Impaired Gait No (0 pts) Mobility Assist Device Used No (0 pt) Altered Elimination No (0 pt) Score/Fall Risk Level 0 - 2 = Low Risk Maintained a safe environment, Hourly rounding (assess needs \T\ fall precautionary measures) done. Abuse screen: Denies threats or abuse. Nutritional screening: No deficits noted. Tuberculosis screening: No symptoms or risk factors identified. Assessment: 14:15 Reassessment: No changes from previously documented assessment. Patient and/or family ll1 updated on plan of care and expected duration. Pain level reassessed. Patient is alert, oriented x 3, equal unlabored respirations, skin warm/dry/pink. TOMMY Rollins evaluating patient in triage. 14:41 Reassessment: No changes from previously documented assessment. Patient and/or family ll1 updated on plan of care and expected duration. Pain level reassessed. Patient is alert, oriented x 3, equal unlabored respirations, skin warm/dry/pink. Vital Signs: 13:00 BP 125 / 79; Pulse 91; Resp 17; Temp 98.4; Pulse Ox 99% on R/A; Weight 54.88 kg; Height ll1 5 ft. 5 in. ; Pain 5/10; 13:00 Body Mass Index 20.14 (54.88 kg, 165.1 cm) ll1 13:00 Pain Scale: Adult ll1 ED Course: 12:41 Patient arrived in ED. al6 13:01 Triage completed. ll1 13:02 Kaylie Baker PA-C is PHCP. sb4 13:02 Caro Chrisitna MD is Attending Physician. sb4 13:02 Arm band placed on. ll1 14:41 Patient has correct armband on for positive identification. Provided Education on: ll1 finish all prescribed antibiotics. 14:41 No provider procedures requiring assistance completed. Patient did not have IV access ll1 during this emergency room visit. Administered Medications: No medications were administered Medication: 15:08 VIS not applicable for this client. ll1 Outcome: 14:23 Discharge ordered by . sb4 14:41 Patient left the ED. ll1 14:41 Discharged to home ambulatory, ll1 14:41 Condition: stable 14:41 Discharge instructions given to patient, Instructed on discharge instructions, follow up and referral plans. medication usage, Demonstrated understanding of instructions, follow-up care, medications, Prescriptions given X 1, Signatures: Roxann Martínez RN RN ll1 Kaylie Baker, PAShaneC PAShaneC sb4 Glo Odonnell6
[2024-11-24 14:59] VITALS: BP 125/79; TEMP 98.4; O2SAT 99
== END 2024-11-24 14:41 | disposition home or self-care (01) ==
LOC: ER 12:32
DX: J01.90 Acute sinusitis, unspecified (principal)
CPT/HCPCS: 99283